=== PATIENT | female | born 1955 | race Caucasian/White ===

== ENCOUNTER 2017-10-23 18:00 | Emergency (ER) | payer SELFPAY ==
[2017-10-23 18:01] VITALS: BP 132/83; PULSE 73; RESP 20; TEMP 36.8; O2SAT 97; BMI 40.2
[2017-10-23] MEDS: Ipratropium/Albuterol Sulfate 3 ML AMPUL.NEB INHALATION (19:06)
[2017-10-23 19:09] VITALS: PULSE 72; RESP 18
--- NOTE | 2017-10-23 19:34 | RAD_ITS ---
STUDY: X-RAY CHEST REASON FOR EXAM: Female, 62 years old. Cough, fever TECHNIQUE: Frontal and lateral views of the chest. COMPARISON: None. FINDINGS: The lungs are clear and expanded. There is no demonstrated pleural abnormality. Normal size heart. Normal mediastinum and evette. Normal visualized pulmonary arteries. Normal visualized aortic arch and descending thoracic aorta. There are diffuse degenerative changes of the visualized thoracic spine. Normal visualized ribs, clavicles, and shoulders. There is no demonstrated abnormality of the visualized soft tissue structures of the upper abdomen. RAD/Chest PA and Lateral IMPRESSION: No acute cardiopulmonary disease. Electronically Signed: Vishal Marinelli DO at 20:04 EST , Service support ,
[2017-10-23 20:21] VITALS: BP 165/75; PULSE 65; RESP 16; O2SAT 98
--- NOTE | 2017-10-23 20:39 | ED.VISSUMM ---
- ER Visit Summary Date of Service: 10/23/17 Chief Complaint: [Cough] History of Present Illness: The patient is a 62 F presents to the emergency department with a cough that started 5 days ago. Patient states the cough is mostly dry. Patient feels congested. Patient has decreased energy. Patient denies any sick contacts. Patient did have a little bit of a sore throat and this complaint of a headache. [] Physical Examination: [HEENT-PERRLA, EOMI. Cranial nerves II through XII grossly intact. TMs clear. Mucous membranes moist. No adenopathy. Cardiovascular-regular rate and rhythm without murmur or ectopy Lungs-good aeration bilaterally. Patient has expiratory wheezes bilaterally. No accessory muscle use or retractions. Abdomen-normoactive bowel sounds, soft, nontender, no rebound or rigidity, no peritoneal signs. Extremities-intact ?4, normal range of motion, normal pulses, atraumatic] Test Results: [Chest x-ray showed nothing acute] Emergency Department Course and Treatment: Was given a DuoNeb aerosol and was treated with prednisone. [] Treatment Plan: [Will be started on Tessalon Perles, prednisone, and dispensed an albuterol inhaler] Disposition: [Discharged home in stable condition] Impression: [Viral URI with reactive airway disease] This note was generated with [employer] dictation software. It may contain incorrect words, spelling, and punctuation that were not noted in review of the chart prior to signing ED Disposition - Plan for ED Patient: Chief Complaint: General Illness Referrals: Ashleigh Lynch [Primary Care Provider] -
--- NOTE | 2017-10-23 20:41 | ED.DEP ---
ED Disposition - Plan for ED Patient: Chief Complaint: General Illness Instructions: ED Bronchitis Asthmatic Prescriptions: Benzonatate [Tessalon Perle] 200 mg PO TID PRN PRN #20 cap PRN Reason: Cough Prednisone [Deltasone] 20 mg PO BID #6 tab Referrals: Ashleigh Lynch [Primary Care Provider] - 3-5 Days
[2017-10-23 21:00] VITALS: BP 177/78; PULSE 81; RESP 18; O2SAT 97
== END 2017-10-23 21:02 | disposition home or self-care (01) ==
LOC: ED 18:49
PROVIDERS: Emergency Provider Emergency Medicine
DX: J06.9 Acute upper respiratory infection, unspecified (principal); J45.909 Unspecified asthma, uncomplicated; I10 Essential (primary) hypertension; M79.7 Fibromyalgia; Z79.899 Other long term (current) drug therapy
CPT/HCPCS: 71046; 94640; 99283

== ENCOUNTER → 2019-06-11 15:28 | Outpatient (CLI) | payer MEDICAID, SELFPAY ==
--- NOTE | 2019-06-11 15:31 | RAD_ITS ---
STUDY: X-RAY - CERVICAL SPINE REASON FOR EXAM: Female, 64 years old. Chronic pain. TECHNIQUE: 8 view(s) of the cervical spine were obtained. COMPARISON: None FINDINGS: There are degenerative changes of the anterior atlantoaxial articulation. Normal odontoid process. There is straightening of the normal cervical lordosis. There is multi-level endplate spondylosis. This is most marked at C4-5 through C6-7 and Normal visualized intervertebral neuroforamina. Number no spine fracture there is maintenance of normal alignment does not alter with flexion or extension. There is limited flexion and extension below the C6 vertebra. The soft tissue structures are unremarkable. RAD/Cerv Spine Obl/Flex/Ext Comp IMPRESSION: Degenerative changes of the cervical spine. Electronically Signed: Mike Joe DO at 23:00 EDT Tel [phone], Service support ,
== END ==
DX: M47.812 Spondylosis without myelopathy or radiculopathy, cervical region (principal)
CPT/HCPCS: 72052

== ENCOUNTER → 2020-11-11 12:56 | Outpatient (CLI) | payer MEDICAID, SELFPAY ==
[2020-11-11 14:13] LABS: Absolute Lymphocyte Count 1.57 X10^3/uL (0.83-4.51); Absolute Neutrophil Count 3.4 X10^3/uL (2.0-7.7); Basophil# 0.02 X10^3/uL; Basophil% 0.4 % (0-1); Eosinophil# 0.15 X10^3/uL; Eosinophils% 2.7 % (0-5); Hemoglobin 16.2 g/dL (12.0-15.0); Lymphocyte # 1.57 X10^3/ul (4.0); Lymphocyte % 28.3 % (19-41); Mean Corp Hgb Conc 34.5 g/dL (32-36); Mean Corpuscular Hgb 29.4 pg (27.0-32.0); Mean Corpuscular Volume 85.3 fL (81-99); Mean Platelet Vol. 11.5 fl (6.2-12.0); Monocyte# 0.38 X10^3/uL; Monocyte% 6.8 % (0-10); NRBC Flagged by Analyzer 0 % (0-5); Neutrophil # 3.42 X10^3/uL (2.7-7.7); Neutrophil % 61.6 % (47-70); Platelet Count 161 K/mm3 (150-450); RBC Distribution Width CV 13.2 % (11.6-14.6); RBC Distribution Width SD 40.7 fl (35.1-43.9); Red Blood Count 5.51 M/mm3 (4.2-5.4); White Blood Count 5.6 K/mm3 (4.4-11.0)
[2020-11-11 14:31] LABS: Hemoglobin A1c 8.7 % (3.8-5.6)
[2020-11-11 15:09] LABS: AST(SGOT) 51 U/L (15-37); Alanine Aminotransfer ALT/SGPT 79 U/L (13-56); Albumin, Serum 3.7 g/dL (3.2-5.0); Alkaline Phosphatase 107 U/L (45-117); Anion Gap 8 (5-15); BUN 11 mg/dL (7-18); BUN/Creat Ratio 16.5 RATIO (10-20); Calcium,Total 9.4 mg/dL (8.5-10.1); Chloride 101 mmol/L (98-107); Cholesterol 208 mg/dL (200); Creatinine, Serum 0.67 mg/dL (0.55-1.02); EST Glomerular Filtration Rate 95 mL/min (>60); Est Glom Filt Rate - Afr Amer 115 mL/min (>60); Globulin 3.7 g/dL (2.2-4.2); Glucose 296 mg/dL (74-106); High Density Lipoprotein 37 mg/dL; Potassium 3.6 mmol/L (3.5-5.1); Protein, Total 7.4 g/dL (6.4-8.2); Sodium Level 135 mmol/L (136-145); T4 Free Direct 1.22 ng/dL (0.76-1.46); Thyroid Stim Hormone (TSH) 1.39 uIU/mL (0.358-3.74); Triglycerides 419 mg/dL
[2020-11-13 14:25] LABS: Thyroid Peroxidase AB 202 IU/mL (0-34)
== END ==
PROVIDERS: Referring Provider Nurse Practitioner Adult Health; Visit Provider Nurse Practitioner Adult Health
DX: E11.65 Type 2 diabetes mellitus with hyperglycemia (principal)
CPT/HCPCS: 36415; 80053; 80061; 83036; 84439; 84443; 85025; 86376

== ENCOUNTER → 2020-12-06 08:28 | Outpatient (CLI) | payer MEDICAID, SELFPAY ==
[2020-12-01 13:48] VITALS: BMI 37.4
--- NOTE | 2020-12-06 08:34 | US_ITS ---
STUDY: ABDOMINAL ULTRASOUND - RIGHT UPPER QUADRANT REASON FOR VISIT: Female, 65 years old ABNORMAL RESULTS OF LIVER FUNCTION TECHNIQUE: Ultrasound evaluation of the right upper quadrant was performed with real-time and static watt-scale imaging. TECHNICAL QUALITY: Comparison is made with prior study dated 02/29/2012. COMPARISON: None. FINDINGS: Liver: The liver is enlarged and measures 21.3 cm. There is increased echogenicity consistent with fatty infiltration. The bile ducts are within normal limits. There is hepatic color flow. The direction of portal flow is hepatopetal. There is no demonstrated mass lesion. Gallbladder: Normal distended gallbladder. The gallbladder wall measures 2 mm. There is a negative sonographic Aguilera''s sign. There is no pericholecystic fluid. There are multiple echogenic structures within the gallbladder, consistent with multiple small gallstones. Common Bile Duct (C.B.D.): The common bile duct measures mm. Pancreas: Normal size of the head, body and tail of the pancreas. There is normal echogenicity of the pancreas. There is no demonstrated pancreatic mass or cyst. Right Kidney: Normal size of the right kidney. The right kidney measures 12.2 cm x 6.3 cm x 5.4 cm. Normal renal cortex. The right cortex measures 2.0 cm. There is no demonstrated renal mass or cyst. There is no right hydronephrosis. US/Abdomen Limited IMPRESSION: Hepatomegaly and diffuse fatty infiltration of the liver. Multiple small gallstones. Electronically Signed: Juan Jose Wing MD at 14:01 EDT , Service support ,
[2020-12-06 11:13] LABS: Hepatitis B Surface Antigen Non-Reactive (Nonreactive); Hepatitis C Antibody Non-Reactive (Nonreactive)
== END ==
DX: K76.0 Fatty (change of) liver, not elsewhere classified (principal); K80.20 Calculus of gallbladder without cholecystitis without obstruction
CPT/HCPCS: 36415; 76705; 86803; 87340

== ENCOUNTER → 2020-12-16 14:15 | Outpatient (CLI) | payer MEDICAID, SELFPAY ==
[2020-12-16 13:46] VITALS: BMI 37.4
[2020-12-16 15:04] LABS: AST(SGOT) 47 U/L (15-37); Alanine Aminotransfer ALT/SGPT 71 U/L (13-56); Albumin, Serum 3.8 g/dL (3.2-5.0); Alkaline Phosphatase 101 U/L (45-117); Bilirubin, Direct 0.22 mg/dL (0.00-0.30); Protein, Total 7.8 g/dL (6.4-8.2)
== END ==
PROVIDERS: Referring Provider Surgery; Visit Provider Surgery
DX: R74.8 Abnormal levels of other serum enzymes (principal)
CPT/HCPCS: 36415; 80076

== ENCOUNTER → 2021-01-03 10:25 | Outpatient (CLI) | payer MEDICAID, SELFPAY ==
[2020-12-29 14:08] VITALS: BMI 37.3
--- NOTE | 2021-01-03 10:28 | EKG12_ITS ---
Test Reason : PRE OP Blood Pressure : / mmHG Vent. Rate : 062 BPM Atrial Rate : 062 BPM P-R Int : 220 ms QRS Dur : 078 ms QT Int : 402 ms P-R-T Axes : 040 007 048 degrees QTc Int : 408 ms Sinus rhythm with 1st degree A-V block Septal infarct , age undetermined Abnormal ECG Confirmed by TAL ABRAHAM, STEPHANIE ([id number]), field map editor GOPI HAGAN ([id number]) on 01/04/2021 10:01:10 AM Referred By: [facility] Confirmed By:STEPHANIE PARADA MD
== END ==
DX: R01.1 Cardiac murmur, unspecified (principal)
CPT/HCPCS: 93005

== ENCOUNTER → 2021-01-17 14:03 | Outpatient (CLI) | payer MEDICAID, SELFPAY ==
[2020-12-29 14:08] VITALS: BMI 37.3
--- NOTE | 2021-01-17 14:05 | ECHOCS_ITS ---
Reason For Study: Murmur Procedure This was a 2D Doppler, Color Flow transthoracic echocardiogram. The study was technically difficult. Contrast injection was performed. Exam performed in department. Left Ventricle Normal LV size. Mild concentric left ventricular hypertrophy. Left ventricular systolic function is hyperdynamic. The estimated ejection fraction is 75 %. Diastolic function is indeterminate. No regional wall motion abnormalities noted. Right Ventricle Normal RV size. Normal systolic function. Atria The left atrium is mildly enlarged. Normal right atrium. No doppler evidence for ASD. Mitral Valve There is mild mitral annular calcification. The mitral valve chordae are thickened and/or calcified. Trivial mitral valve insufficiency. Tricuspid Valve Normal tricuspid valve. Trivial tricuspid valve insufficiency. Right ventricular systolic pressure estimated to be 23 mmHg. Aortic Valve Trisinus/trileaflet aortic valve. Mild diffuse aortic valve calcification. Aortic sclerosis, no stenosis. Pulmonic Valve The pulmonic valve is not well visualized. Trivial pulmonic valve insufficiency. Great Vessels Normal sized aortic root. Calcified aortic root. Pericardium/Pleural No pericardial effusion. Medication 22 gauge I.V. with prn adaptor inserted into left arm. Diluted definity 2ml given slow IV push to enhance endocardial definition. MMode/2D Measurements & Calculations LVIDd: 4.3 cm IVSd: 1.3 cm LVOT diam: 2.0 cm LVIDs: 2.4 cm LVPWd: 1.4 cm FS: 44.6 % LVOT area: 3.0 cm2 Ao root diam: 2.9 cm LAV(MOD-bp): 73.1 ml LA A4 area: 25.5 cm2 LA dimension: 4.3 cm LAV(MOD-bp) Indexed: 32.8 ml/m2 LAV(MOD-sp2): 53.5 ml LAV(MOD-sp4): 81.2 ml RA A4 area: 17.2 cm2 Time Measurements MV dec time: 0.25 sec Doppler Measurements & Calculations MV E max dharmesh: 127.3 cm/sec Lat Peak E' Dharmesh: 7.3 cm/sec Med Peak E' Dharmesh: 4.3 cm/sec MV A max hdarmesh: 115.0 cm/sec E/E' lat: 17.5 E/E' med: 29.4 MV E/A: 1.1 MV V2 max: 133.9 cm/sec MV P1/2t max dharmesh: 122.3 cm/sec Ao V2 max: 170.6 cm/sec MV max P.2 mmHg MV P1/2t: 96.9 msec Ao max P.6 mmHg MV V2 mean: 80.1 cm/sec MV dec slope: 369.8 cm/sec2 Ao V2 mean: 99.5 cm/sec MV mean P.9 mmHg Ao mean P.8 mmHg MV V2 VTI: 45.1 cm MVA(P1/2t): 2.3 cm2 Ao V2 VTI: 35.9 cm MVA(VTI): 1.8 cm2 TON(I,D): 2.3 cm2 TON(V,D): 2.0 cm2 LV V1 max: 113.2 cm/sec SV(LVOT): 82.4 ml PA V2 max: 113.6 cm/sec LV V1 max P.1 mmHg LV V1 mean P.6 mmHg LV V1 mean: 75.2 cm/sec LV V1 VTI: 27.2 cm TR max dharmesh: 224.8 cm/sec TR max P.2 mmHg ECHO/Echo Complete W/ Contrast Interpretation Summary The study was technically difficult. Contrast injection was performed. Left ventricular systolic function is hyperdynamic. The estimated ejection fraction is 75 %. Mild concentric left ventricular hypertrophy. The left atrium is mildly enlarged. There is mild mitral annular calcification. The mitral valve chordae are thickened and/or calcified. Trivial mitral valve insufficiency. Trivial tricuspid valve insufficiency. Aortic sclerosis, no stenosis. Trivial pulmonic valve insufficiency. Calcified aortic root. Right ventricular systolic pressure estimated to be 23 mmHg. Diastolic function is indeterminate. Ordering Physician: Selene Soliz Referring Physician: Selene Soliz Performed By: Brian Nunez RCS
== END ==
PROVIDERS: PCP Nurse Practitioner Adult Health; Referring Provider Nurse Practitioner Adult Health; Visit Provider Nurse Practitioner Adult Health
DX: R01.1 Cardiac murmur, unspecified (principal)
CPT/HCPCS: 93306; Q9957; A4216; C8929

== ENCOUNTER → 2021-02-22 12:00 | Outpatient (CLI) | payer MEDICAID, SELFPAY ==
[2021-02-22 11:00] VITALS: BMI 38.1
[2021-02-22 13:17] LABS: AST(SGOT) 30 U/L (15-37); Alanine Aminotransfer ALT/SGPT 50 U/L (13-56); Albumin, Serum 3.5 g/dL (3.2-5.0); Alkaline Phosphatase 83 U/L (45-117); Anion Gap 6 (5-15); BUN 16 mg/dL (7-18); BUN/Creat Ratio 23.1 RATIO (10-20); Calcium,Total 9.4 mg/dL (8.5-10.1); Chloride 103 mmol/L (98-107); Creatinine, Serum 0.69 mg/dL (0.55-1.02); EST Glomerular Filtration Rate 91 mL/min (>60); Est Glom Filt Rate - Afr Amer 110 mL/min (>60); Globulin 3.6 g/dL (2.2-4.2); Glucose 226 mg/dL (74-106); Potassium 3.8 mmol/L (3.5-5.1); Protein, Total 7.1 g/dL (6.4-8.2); Sodium Level 137 mmol/L (136-145); T4 Free Direct 1.07 ng/dL (0.76-1.46); Thyroid Stim Hormone (TSH) 2.02 uIU/mL (0.358-3.74)
[2021-02-22 13:22] LABS: Hemoglobin A1c 7.6 % (3.8-5.6)
[2021-02-23 08:43] LABS: Thyroid Peroxidase AB 182 IU/mL (0-34)
== END ==
PROVIDERS: PCP Nurse Practitioner Adult Health; Referring Provider Nurse Practitioner Adult Health; Visit Provider Nurse Practitioner Adult Health
DX: E11.65 Type 2 diabetes mellitus with hyperglycemia (principal)
CPT/HCPCS: 36415; 80053; 83036; 84439; 84443; 86376

== ENCOUNTER 2021-11-27 13:09 | Outpatient (CLI) | payer MEDICAID, SELFPAY ==
[2021-11-27 13:52] LABS: Absolute Lymphocyte Count 1.33 X10^3/uL (0.83-4.51); Absolute Neutrophil Count 4.1 X10^3/uL (2.0-7.7); Basophil# 0.02 X10^3/uL; Basophil% 0.3 % (0-1); Eosinophil# 0.13 X10^3/uL; Eosinophils% 2.2 % (0-5); Hemoglobin 15.6 g/dL (12.0-15.0); Lymphocyte # 1.33 X10^3/ul (0.83-4.51); Lymphocyte % 22.1 % (19-41); Mean Corp Hgb Conc 37.1 g/dL (32-36); Mean Corpuscular Hgb 32.2 pg (27.0-32.0); Mean Corpuscular Volume 86.6 fL (81-99); Mean Platelet Vol. 11.3 fl (6.2-12.0); Monocyte# 0.45 X10^3/uL; Monocyte% 7.5 % (0-10); NRBC Flagged by Analyzer 0 % (0-5); Neutrophil # 4.08 X10^3/uL (2.7-7.7); Neutrophil % 67.6 % (47-70); Platelet Count 158 K/mm3 (150-450); RBC Distribution Width CV 13.2 % (11.6-14.6); RBC Distribution Width SD 41.3 fl (35.1-43.9); Red Blood Count 4.85 M/mm3 (4.2-5.4)
[2021-11-27 14:17] LABS: ALB/GLOB Ratio 1.1 RATIO (0.9-2.4); AST(SGOT) 52 U/L (15-37); Alanine Aminotransfer ALT/SGPT 69 U/L (13-56); Albumin, Serum 3.9 g/dL (3.2-5.0); Alkaline Phosphatase 82 U/L (45-117); Anion Gap 4 (5-15); BUN 10 mg/dL (7-18); BUN/Creat Ratio 14.2 RATIO (10-20); CPK Total, Creatine Kinase 47 U/L (26-192); CRP < 2.90 mg/L (0.0-3.0); Calcium,Total 9.3 mg/dL (8.5-10.1); Chloride 98 mmol/L (98-107); Cholesterol 207 mg/dL (200); EST Glomerular Filtration Rate 89 mL/min (>60); Est Glom Filt Rate - Afr Amer 108 mL/min (>60); Globulin 3.6 g/dL (2.2-4.2); Glucose 225 mg/dL (74-106); High Density Lipoprotein 43 mg/dL; Potassium 3.5 mmol/L (3.5-5.1); Protein, Total 7.5 g/dL (6.4-8.2); Rheumatoid Factor < 10.0 IU/mL (<15); Sodium Level 135 mmol/L (136-145); Triglycerides 298 mg/dL; Uric Acid 7.2 mg/dL (2.6-6.0); Very Low Density Lipoprotein 60 mg/dL (5-40)
[2021-11-27 23:29] LABS: Erythrocyte Sedimentation Rate 4 mm/hr (0-30)
[2021-11-29 16:12] LABS: ANTINUCLEAR ANTIBODIES DIRECT Negative (Negative)
== END 2021-11-27 23:59 | disposition home or self-care (01) ==
PROVIDERS: Referring Provider Nurse Practitioner Adult Health; Visit Provider Nurse Practitioner Adult Health
DX: E11.65 Type 2 diabetes mellitus with hyperglycemia (principal); M25.50 Pain in unspecified joint
CPT/HCPCS: 36415; 80053; 80061; 82550; 84443; 84550; 85025; 85652; 86038; 86140; 86431

== ENCOUNTER 2021-12-02 08:18 | Outpatient (CLI) | payer MEDICAID, SELFPAY ==
--- NOTE | 2021-12-02 08:22 | US_ITS ---
STUDY: ABDOMINAL ULTRASOUND - RIGHT UPPER QUADRANT REASON FOR VISIT: Female, 66 years old back pain, history of gallstones. TECHNIQUE: Ultrasound evaluation of the right upper quadrant was performed with real-time and static watt-scale imaging. TECHNICAL QUALITY: Adequate. COMPARISON: 12/06/2020 FINDINGS: Liver: The liver measures 21 cm. There is increased echogenicity consistent with fatty infiltration. The bile ducts are within normal limits. There is hepatic color flow. The direction of portal flow is hepatopetal. There is no demonstrated mass lesion. Gallbladder: Normal distended gallbladder. The gallbladder wall measures 2.1 mm. There is a negative sonographic Aguilera''s sign. There is no pericholecystic fluid. There are multiple small echogenic structures within the gallbladder, consistent with multiple gallstones. Common Bile Duct (C.B.D.): The common bile duct measures 2.4 mm. Pancreas: The pancreas as seen on this examination is echogenic structure. There is no demonstrated pancreatic mass or cyst. Right Kidney: Normal size of the right kidney. The right kidney measures 12.7 x 6.6 x 4.9 cm. Normal renal cortex. The right cortex measures 1.8 cm. There is no demonstrated renal mass or cyst. There is no right hydronephrosis. US/Abdomen Limited IMPRESSION: 1. Hepatomegaly. 2. Echogenic liver consistent with fatty infiltration. 3. Multiple small gallstones. Electronically Signed: Carlos Lala MD at 10:47 EDT ,
== END 2021-12-02 23:59 | disposition home or self-care (01) ==
LOC: US 08:19
PROVIDERS: Visit Provider Nurse Practitioner Adult Health
DX: K80.20 Calculus of gallbladder without cholecystitis without obstruction (principal)
CPT/HCPCS: 76705

== ENCOUNTER → 2022-01-30 | Outpatient (CLI) | payer MEDICAID, SELFPAY ==
[2022-01-30 14:40] LABS: Absolute Lymphocyte Count 1.96 X10^3/uL (0.83-4.51); Absolute Neutrophil Count 5.4 X10^3/uL (2.0-7.7); Basophil# 0.03 X10^3/uL; Basophil% 0.4 % (0-1); Eosinophil# 0.19 X10^3/uL; Eosinophils% 2.3 % (0-5); Hemoglobin 15.2 g/dL (12.0-15.0); Lymphocyte # 1.96 X10^3/ul (0.83-4.51); Lymphocyte % 24.2 % (19-41); Mean Corp Hgb Conc 36.2 g/dL (32-36); Mean Corpuscular Volume 85.5 fL (81-99); Mean Platelet Vol. 10.8 fl (6.2-12.0); Monocyte# 0.48 X10^3/uL; Monocyte% 5.9 % (0-10); NRBC Flagged by Analyzer 0 % (0-5); Neutrophil # 5.42 X10^3/uL (2.7-7.7); Neutrophil % 66.8 % (47-70); Platelet Count 152 K/mm3 (150-450); RBC Distribution Width SD 39.8 fl (35.1-43.9); Red Blood Count 4.91 M/mm3 (4.2-5.4); White Blood Count 8.1 K/mm3 (4.4-11.0)
[2022-01-30 14:50] LABS: Prothrombin Time (Protime)PT. 12.8 SECONDS (11.7-14.9)
[2022-01-30 15:05] LABS: AST(SGOT) 34 U/L (15-37); Alanine Aminotransfer ALT/SGPT 46 U/L (13-56); Albumin, Serum 3.8 g/dL (3.2-5.0); Alkaline Phosphatase 85 U/L (45-117); Anion Gap 10 (5-15); BUN 7 mg/dL (7-18); BUN/Creat Ratio 9.9 RATIO (10-20); Calcium,Total 9.5 mg/dL (8.5-10.1); Chloride 100 mmol/L (98-107); Creatinine, Serum 0.71 mg/dL (0.55-1.02); EST Glomerular Filtration Rate 88 mL/min (>60); Est Glom Filt Rate - Afr Amer 106 mL/min (>60); Ferritin 418 ng/mL (8-252); Globulin 3.8 g/dL (2.2-4.2); Glucose 185 mg/dL (74-106); LDH 240 U/L (84-246); Potassium 3.4 mmol/L (3.5-5.1); Protein, Total 7.6 g/dL (6.4-8.2); Sodium Level 137 mmol/L (136-145)
[2022-01-30 15:30] LABS: HIV - WCH Non-Reactive (Nonreactive)
[2022-02-01 15:09] LABS: Anti-Centromere B Ab <0.2 AI (0.0-0.9); Anti-Chromatin <0.2 AI (0.0-0.9); Anti-Jo <0.2 AI (0.0-0.9); Anti-Scleroderma-70 AB <0.2 AI (0.0-0.9); RNP Ab <0.2 AI (0.0-0.9); SJOGREN'S Anti-SS-A test < 0.2 AI (0.0-0.9); SJOGREN'S Anti-SS-B test < 0.2 AI (0.0-0.9); Smith Ab <0.2 AI (0.0-0.9)
[2022-02-01 17:22] LABS: Anti-Mitochondrial AB <20.0 Units (0.0-20.0); Anti-dsDNA Ab 1 IU/mL (0-9)
[2022-02-02 16:09] LABS: Angiotensin Convert Enzyme 55 U/L (14-82); Ceruloplasmin 21.4 mg/dL (19.0-39.0); Cytoplasmic Ab (C-ANCA) <1:20 titer (Neg:<1:20); HEPATITIS B SURFACE AG Negative (Negative); Hep C Antibodies <0.1 s/co ratio (0.0-0.9); Hepatitis A IgM Antibody Positive (Negative); Hepatitis B Core AB IgM Negative (Negative)
[2022-02-02 16:39] LABS: AFP, Tumor Marker 3.1 ng/mL (0.0-9.2); Anti-Smooth Muscle ABS 14 Units (0-19); Copper, Serum or Plasma 93 ug/dL (80-158); Haptoglobin 44 mg/dL (37-355); Perinuclear Ab (P-ANCA) <1:20 titer (Neg:<1:20)
== END | disposition home or self-care (01) ==
LOC: LAB 13:53
PROVIDERS: Referring Provider Nurse Practitioner Adult Health; Visit Provider Nurse Practitioner Adult Health
DX: K76.0 Fatty (change of) liver, not elsewhere classified (principal)
CPT/HCPCS: 36415; 80053; 80074; 82105; 82140; 82164; 82390; 82525; 82728; 83010; 83516; 83615; 85025; 85610; 86225; 86235; 86256; 86703

== ENCOUNTER 2023-02-07 11:30 | Outpatient (RCR) | payer MEDICARE, MEDICAID, SELFPAY ==
--- NOTE | 2023-01-04 14:32 | HP.PTEVAL_ITS ---
Patient's Visit Information PETER DAHL is a 67 year old F referred to Physical Therapy by Dr. Eddie Salmeron DC with a diagnosis of LUMBAR STRAIN ,CERVICAL STRAIN. Date of Evaluation: 01/04/23 Physical Therapist: Emery Naidu, PT, Cert MDT, OCS - Visit Plan Frequency: 2x /Week Duration: 4 Weeks Plan: PT INTERVENTIONS AQUATIC THERAPY FOR LUMBAR/CERVICAL ROM ,POSTURAL EX'S ,BUE/LE STRENGTHENING , DLS ,AND LE LEXABILITY - Subjective This 67 y/o female presents to physical therapy for back and neck pain. Patient has had cervical and lumbar pain many years. Patient has been seeing chiropractor which has not helped. Patient has chiropractor in past as well showed spurs from x-rays several years ago. Patient neck cervical and occiput to shoulders. Symptoms described intermittent sharp pain and spasms .Aggravating factors pressure with arms ,lifting ,flexion and extending and occasional turning. Denies NORRIS/tinnitus occasional NORRIS after spasm. Denies Nausea. Patient pain affects sleeping with restless legs. Location LS pain and symptoms with radicular symptoms to hamstrings and hips. Aggravating factors lifting/bending ,standing and walking and occasional sitting . Alleviating factors rest. Coughing/sneezing + . Bowel/bladder -. No abnormal night pain. PT many years ago. Patient pain affects QOL and function. SOCIAL: . VOCATION: retired - Pain Bilateral Back Pain Intensity (Out of 10): 5 Pain Intensity Range: 10 Bilateral Neck Pain Intensity (Out of 10): 5 Pain Intensity Range: 10 - Objective POSTURE: mild forward posture ,left leg slightly shorter. GAIT: reciprocal pattern mild decrease stance time LLE. PALPTION: tender UT/levtor/SI/LS. C ERVICAL ROM: flexion min loss ,extension mod loss ,rotation/lateral flexion mod loss. BUE: WFL. MMT: BUE grossly 4/5 ,except shoulders 4-/5. LUMBAR ROM: flexion mod loss ,extension min loss ,side glides min loss. FLEXABLITY: hamstrings min tight ,piriformis mod tight. MMT:( peak force) left 15,7 ,hamstrings 19.9 ,hip flexion 15.8,hip abduction 14.8 - Special Tests C/S Radiculapathy - Left Upper limb tension test: Negative C/S Radiculapathy - Right Upper limb tension test: Negative C/S Radiculapathy - Left Spurlings: Negative C/S Radiculapathy - Right Sp[place]: Negative C/S Radiculapathy - Left Cervical distraction: Negative C/S Radiculapathy - Right Cervical distraction: Negative C/S Radiculapathy - Left Relief test: Negative Sharp Tucker: Negative Vertebral Artery Test: Negative Alar Ligament Test: Negative Cervical Sitting: Protrusion - Mechanical Response: No effect Cervical Sitting: Protrusion - Symptoms During Testing: Increases Cervical Sitting: Protrusion - Symptoms After Testing: No worse Cervical Sitting: Retraction - Mechanical Response: No effect Cervical Sitting: Retraction - Symptoms During Testing: Increases Cervical Sitting: Retraction - Symptoms After Testing: No worse Cervical Sitting: Retraction-Extension - Mechanical Response: No effect Cerv Sitting: Retraction-Extension - Symptoms During Testing: Increases Cerv Sitting: Retraction-Extension - Symptoms After Testing: No worse Cervical Sitting: Sidebend Right - Mechanical Response: No effect Cervical Sitting: Sidebend Right - Symptoms During Testing: No effect Cervical Sitting: Sidebend Right - Symptoms After Testing: No effect Cervical Sitting: Sidebend Left - Mechanical Response: No effect Cervical Sitting: Sidebend Left - Symptoms During Testing: No effect Cervical Sitting: Sidebend Left - Symptoms After Testing: No effect Cervical Sitting: Rotation Right - Mechanical Response: No effect Cervical Sitting: Rotation Right - Symptoms During Testing: No effect Cervical Sitting: Rotation Right - Symptoms After Testing: No effect Cervical Sitting: Rotation Left - Mechanical Response: No effect Cervical Sitting: Rotation Left - Symptoms During Testing: No effect Cervical Sitting: Rotation Left - Symptoms After Testing: No effect Cervical Sitting: Flexion - Mechanical Response: No effect Cervical Sitting: Flexion - Symptoms During Testing: Increases Cervical Sitting: Flexion - Symptoms After Testing: Worse L/S Slump test left side: Negative L/S Slump test right side: Negative L/S Left Straight Leg Raise: Negative L/S Right Straight Leg Raise: Negative Lumbar Standing: Flexion - Mechanical Response: No effect Lumbar Standing: Flexion - Symptoms During Testing: Increases Lumbar Standing: Flexion - Symptoms After Testing: No worse Lumbar Standing: Extension - Mechanical Response: No effect Lumbar Standing: Extension - Symptoms During Testing: Increases Lumbar Standing: Extension - Symptoms After Testing: No worse Lumbar Standing: Right Side Glides - Mechanical Response: No effect Lumbar Standing: Right Side [place] - Symptoms During Testing: No effect Lumbar Standing: Right Side [place] - Symptoms After Testing: No effect Lumbar Standing: Left Side [place] - Mechanical Response: No effect Lumbar Standing: Left Side [place] - Symptoms During Testing: No effect Lumbar Standing: Left Side [place] - Symptoms After Testing: No effect - Balance/Special Test Scores Oswestry Low Back Score: 22 - Goals Goal 1:: I with Aquatic therapy program Goal Time Frame: 4-6 Weeks Goal 2:: Patient to demonstrate 50% improvement with increase function and less pain Goal Time Frame: 4-6 Weeks Goal 3:: Patient to improve improved cervical and lumbar ROM for function of activity for driving and housework Goal Time Frame: 4-6 Weeks Goal 4:: Patient improve strength left leg by 5-10 MMT peak force to improve function. Goal Time Frame: 4-6 Weeks Goal 5:: Patient to improve back oswestry score by 5 points to improve QOL and function. Goal Time Frame: 4-6 Weeks - Rehabilitation Potential Physical Therapy Diagnosis: This patient has cervical pain and lumbar pain with symptoms increase with motion testing and positioning weakness left leg increase with walking/standing and ADL thus benefit from skilled PT Rehabilitation Potential: Fair - Anticipated Interventions Patient/Client Instruction: Educate patient on: Condition, Plan of Care For the Purpose of:: To decrease pain, To increase ROM, To improve muscle performance and motor function, To improve ability to perform ADL's, To increase tolerance to activity/condition/position, To improve ability of physical actions for home/community/work/leisure, To improve health of tissue, To decrease soft tissue restriction, To increase flexibility/ROM, To improve balance, To improve tolerance to ADL's Therapeutic Exercise to Include: Strength training, Endurance training, Body mechanics, Postural training, Flexibilty training, In an aquatic setting, Active ROM, Dynamic Lumbar Stabilization For the Purpose of:: To decrease pain, To improve muscle performance and motor function, To improve ability to perform ADL's, To increase tolerance to activity/condition/position, To improve performance and independence with ADL's, To improve ability of physical actions for home/community/work/leisure, To improve health of tissue, To decrease soft tissue restriction, To increase flexibility/ROM, To improve endurance, To reduce risk of recurrence, To improve tolerance to ADL's Thank you for the opportunity to evaluate your patient. For Medicare and Medicare HMO plans, please review the plan of care and approve it. It will need to be FAXED BACK to us at [phone] for Medicare purposes. For Medicare only, by signing this I certify the plan of care. Please let me know if there are questions or concerns regarding this plan of care. Physician Signature: Date:
--- NOTE | 2023-02-07 14:33 | HP.PTREVAL ---
Dr. Eddie Salmeron, [place], It has been my pleasure to treat PATRICIA DAHL over the last 8 visits for LUMBAR STRAIN ,CERVICAL STRAIN. Please see the progress note below for an update on the physical therapy plan of care! Subjective: Pt. states that she feels like the pool has helped her hip and she has less pain overall. She states that she can still be walking and like her hip is going to pop. Pt. states that she still gets the spasms going up her neck. She reports that she would be interested in transitioning to land therapy and see how she does with this. Objective/Function: Patricia has come to 8 sessions of physical therapy with aquatic therapy to focus on general strengthening. Reviewed pt. goals for therapy and she has met or is progressing towards meeting her goals for therapy. Discussed with pt. about possibly transitioning to land therapy which she was in agreement with. Will continue to work on improving neck and back strengthening to meet her goals for therapy. Plan Plan: Possible transition to land therapy to focus on improving neck and back strength. Balance/Gait/Functional tests - Balance/Special Test Scores Oswestry Low Back Score: 17 Goals Goal 1:: I with Aquatic therapy program Goal Time Frame: 4-6 Weeks Goal Progress: Goal Met Goal 2:: Patient to demonstrate 50% improvement with increase function and less pain Goal Time Frame: 4-6 Weeks Goal Progress: Progressing Goal 3:: Patient to improve improved cervical and lumbar ROM for function of activity for driving and housework Goal Time Frame: 4-6 Weeks Goal Progress: Goal Met Goal 4:: Patient improve strength left leg by 5-10 MMT peak force to improve function. Goal Time Frame: 4-6 Weeks Goal Progress: Progressing Goal 5:: Patient to improve back oswestry score by 5 points to improve QOL and function. Goal Time Frame: 4-6 Weeks Goal Progress: Progressing Anticipated Interventions Patient/Client Instruction: Educate patient on: Condition, Plan of Care For the Purpose of:: To decrease pain, To increase ROM, To improve muscle performance and motor function, To improve ability to perform ADL's, To increase tolerance to activity/condition/position, To improve ability of physical actions for home/community/work/leisure, To improve health of tissue, To decrease soft tissue restriction, To increase flexibility/ROM, To improve balance, To improve tolerance to ADL's Therapeutic Exercise to Include: Strength training, Endurance training, Body mechanics, Postural training, Flexibilty training, In an aquatic setting, Active ROM, Dynamic Lumbar Stabilization For the Purpose of:: To decrease pain, To improve muscle performance and motor function, To improve ability to perform ADL's, To increase tolerance to activity/condition/position, To improve performance and independence with ADL's, To improve ability of physical actions for home/community/work/leisure, To improve health of tissue, To decrease soft tissue restriction, To increase flexibility/ROM, To improve endurance, To reduce risk of recurrence, To improve tolerance to ADL's Please do not hesitate to contact me at [phone] by phone or if you have questions or concerns regarding this new plan of care! Sincerely, Rd Sanchez
--- NOTE | 2023-05-14 10:46 | HP.PT.NRP ---
Patient Information Patient Information: PETER DAHL was seen in my office for initial evaluation on 01/04/23. The following Plan of Care was established for this patient: POC Established Initial Frequency: 2x /Week Initial Duration: 4 Weeks Anticipated Interventions Patient/Client Instruction: Educate patient on: Condition and Plan of Care For the Purpose of:: To decrease pain, To increase ROM, To improve muscle performance and motor function, To improve ability to perform ADL's, To increase tolerance to activity/condition/position, To improve ability of physical actions for home/community/work/leisure, To improve health of tissue, To decrease soft tissue restriction, To increase flexibility/ROM, To improve balance and To improve tolerance to ADL's Therapeutic Exercise to Include: Strength training, Endurance training, Body mechanics, Postural training, Flexibilty training, In an aquatic setting, Active ROM and Dynamic Lumbar Stabilization For the Purpose of:: To decrease pain, To improve muscle performance and motor function, To improve ability to perform ADL's, To increase tolerance to activity/condition/position, To improve performance and independence with ADL's, To improve ability of physical actions for home/community/work/leisure, To improve health of tissue, To decrease soft tissue restriction, To increase flexibility/ROM, To improve endurance, To reduce risk of recurrence and To improve tolerance to ADL's Last Seen Last Seen: This patient was last seen in our office . Pertinent comments regarding their Physical therapy will appear below: Patient was seen for PT in Aquatics for neck and back pain thus d/c At this point I will be discontinuing this patient from physical therapy. I would be happy to see this patient again in the future if found appropriate by the physician. Thank you! Emery Naidu, PT, Cert MDT, OCS Balance/Gait/Functional tests Balance/Special Test Scores Oswestry Low Back Score: 17
== END 2023-02-07 19:00 | disposition home or self-care (01) ==
LOC: PT 11:30
PROVIDERS: Referring Provider Chiropractor; Visit Provider Chiropractor
DX: S39.012D Strain of muscle, fascia and tendon of lower back, subsequent encounter; S16.1XXD Strain of muscle, fascia and tendon at neck level, subsequent encounter
CPT/HCPCS: 97110; 97113; 97162; 97164

== ENCOUNTER → 2023-07-19 | Outpatient (CLI) | payer MEDICARE, MEDICAID, SELFPAY ==
--- NOTE | 2023-07-19 13:50 | RAD_ITS ---
STUDY: X-RAY - LUMBOSACRAL SPINE REASON FOR EXAM: Female, 68 years old. ACUTE LEFT SIDED LOW BACK PAIN WITHOUT SCIATICA TECHNIQUE: 7 view(s) of the lumbosacral spine were obtained. COMPARISON: None FINDINGS: Normal lumbar lordosis. There is no substantial scoliosis. There is normal alignment of the vertebrae. Normal vertebral bodies and endplates. Normal disc space heights. Normal bilateral sacral ala, sacroiliac joints, and visualized sacrum. Normal visualized soft tissue structures. Bilateral soft tissue densities project over the kidneys. Possible calcified gallstones. Possible 1 cm calcific nephroliths on the right. RAD/L/S Spine w Bend Min 6 Vw IMPRESSION: Gallstones. Possible nephrolith on the right. Bilateral soft tissue densities project over the kidneys. Follow-up CT would be helpful. Otherwise unremarkable lumbar spine. Electronically Signed: Devon Coley MD at 16:53 EDT ,
== END | disposition home or self-care (01) ==
LOC: RAD 13:49
PROVIDERS: Referring Provider Family Medicine; Visit Provider Family Medicine
DX: M54.50 Low back pain, unspecified (principal)
CPT/HCPCS: 72114

== ENCOUNTER → 2023-08-13 | Outpatient (CLI) | payer MEDICARE, MEDICAID, SELFPAY ==
--- NOTE | 2023-08-13 14:56 | CT_ITS ---
STUDY: CT ABDOMEN AND PELVIS WITH CONTRAST REASON FOR EXAM: Female, 68 years old. LEFT SIDED ABDOMINAL PAIN/INTRAABDOMINAL MASS RADIATION DOSAGE (If Supplied By Facility): CTDIvol = ( 16.21 ) mGy, DLP = ( 1137.7 ) mGycm TECHNIQUE: Transaxial images were obtained from the dome of the diaphragm to the symphysis pubis with oral contrast. Oral and amp; IV Readi-CAT and amp; 100mL Isovue-370 was administered. Sagittal and coronal images were reconstructed. Individualized dose optimization techniques were used for this CT. COMPARISON: None. FINDINGS: The visualized lung bases are unremarkable. Coronary artery calcification. There is decreased attenuation of the liver consistent with steatosis. Mild hepatomegaly. Small gallstones seen along the dependent portion of the gallbladder lumen. There are multiple benign calcified granulomata of the spleen. Mild splenomegaly. Normal pancreas. There is a small, circumscribed, smooth, low attenuation left adrenal mass, consistent with an adrenal adenoma. This measures 1.25 cm. Normal right adrenal gland. Normal right kidney. Normal left kidney. There is a small hiatal hernia. Normal small intestine. Normal colon. The appendix is visualized and appears normal. There is scattered atherosclerotic calcification of the abdominal aorta, without a demonstrated aneurysm. Normal inferior vena cava. Normal retroperitoneum. Mild degree of thickening of the urinary bladder wall. There is absence of the uterus consistent with a prior hysterectomy. Small bilateral inguinal hernias containing fat. There are mild degenerative changes of the visualized lumbar spine. CT/Abdomen/Pelvis WITH Contrast IMPRESSION: Small gallstones along the dependent portion of the gallbladder lumen. Fatty infiltration of the liver and mild hepatomegaly. Mild to moderate splenomegaly. Small left adrenal adenoma. Electronically Signed: Juan Jose Wing MD at 14:36 EST ,
[2023-08-13 17:43] LABS: CREATININE FINGERSTICK < 1.0 mg/dL (0.55-1.02); EGFR FINGERSTICK > 60.0000 mL/min (>60)
== END | disposition home or self-care (01) ==
LOC: CT 14:53
PROVIDERS: PCP Family Medicine; Referring Provider Family Medicine; Visit Provider Family Medicine
DX: R10.9 Unspecified abdominal pain (principal); R19.00 Intra-abdominal and pelvic swelling, mass and lump, unspecified site
CPT/HCPCS: 74177; Q9967; A4216

== ENCOUNTER → 2023-08-28 | Outpatient (CLI) | payer MEDICARE, MEDICAID, SELFPAY ==
[2023-09-04 22:06] LABS: Aldosterone, Serum 5.4 ng/dL (0.0-30.0); Renin, Plasma < 0.167 ng/mL/hr (0.167-5.380)
== END | disposition home or self-care (01) ==
LOC: LAB 14:36
PROVIDERS: PCP Family Medicine; Referring Provider Family Medicine; Visit Provider Family Medicine
DX: D35.02 Benign neoplasm of left adrenal gland (principal)
CPT/HCPCS: 36415; 82088; 84244

== ENCOUNTER → 2023-11-12 | Outpatient (CLI) | payer MEDICARE, MEDICAID, SELFPAY ==
--- NOTE | 2023-11-12 09:15 | US_ITS ---
STUDY: ABDOMINAL ULTRASOUND - RIGHT UPPER QUADRANT; ELASTOGRAPHY REASON FOR VISIT: Female, 68 years old. Fatty infiltration of the liver. TECHNIQUE: Ultrasound evaluation of the right upper quadrant was performed with real-time and static watt-scale imaging. Point quantification shear wave elastography was performed ([employer]). TECHNICAL QUALITY: Adequate. COMPARISON: Comparison is made with prior study dated December 02, 2021. FINDINGS: Liver: The liver is enlarged and measures 21.8 cm. There is increased echogenicity consistent with fatty infiltration. The bile ducts are within normal limits. There is hepatic color flow. The direction of portal flow is hepatopetal. There is no demonstrated mass lesion. Median liver stiffness measured 7.8 kPa. Gallbladder: Normal distended gallbladder. The gallbladder wall measures 3 mm. There is a negative sonographic Aguilera''s sign. There is no pericholecystic fluid. There are multiple echogenic structures within the gallbladder, consistent with multiple gallstones. Common Bile Duct (C.B.D.): The common bile duct measures 5 mm. Pancreas: There is normal echogenicity of the visualized pancreas. There is no demonstrated pancreatic mass or cyst. Right Kidney: Normal size of the right kidney. The right kidney measures 11.8 cm x 5 cm x 5.7 cm. Normal renal cortex. The right cortex measures 1.9 cm. There is no demonstrated renal mass or cyst. There is no right hydronephrosis. US/ABD Limited w/ Elastography IMPRESSION: 1. Liver stiffness measures 7.8 kPa compatible with F2-F3 (Mild to moderate liver fibrosis) Metavir score. 2. Hepatomegaly and fatty infiltration of the liver. 3. Multiple gallstones. Electronically Signed: Juan Jose Wing MD at 14:30 EST ,
== END | disposition home or self-care (01) ==
LOC: US 09:11
PROVIDERS: PCP Family Medicine; Referring Provider Internal Medicine Gastroenterology; Visit Provider Internal Medicine Gastroenterology
DX: K76.0 Fatty (change of) liver, not elsewhere classified (principal)
CPT/HCPCS: 76705; 76981

== ENCOUNTER 2023-12-25 12:48 | Outpatient (CLI) | payer MEDICARE, MEDICAID, SELFPAY ==
[2023-12-25 13:29] LABS: Absolute Lymphocyte Count 1.49 X10^3/uL (0.83-4.51); Absolute Neutrophil Count 3.5 X10^3/uL (2.0-7.7); Basophil# 0.03 X10^3/uL; Basophil% 0.5 % (0-1); Eosinophil# 0.11 X10^3/uL; Hematocrit 45.9 % (37-47); Hemoglobin 16.4 g/dL (12.0-15.0); Lymphocyte # 1.49 X10^3/ul (0.83-4.51); Lymphocyte % 26.8 % (19-41); Mean Corp Hgb Conc 35.7 g/dL (32-36); Mean Corpuscular Hgb 30.9 pg (27.0-32.0); Mean Corpuscular Volume 86.4 fL (81-99); Mean Platelet Vol. 11.1 fl (6.2-12.0); Monocyte# 0.38 X10^3/uL; Monocyte% 6.8 % (0-10); NRBC Flagged by Analyzer 0 % (0-5); Neutrophil # 3.52 X10^3/uL (2.7-7.7); Neutrophil % 63.5 % (47-70); POSITIVE COUNT YES; Platelet Count 166 K/mm3 (150-450); RBC Distribution Width CV 13.4 % (11.6-14.6); RBC Distribution Width SD 41.4 fl (35.1-43.9); RET-HE 33.8 pg (30-35); Red Blood Count 5.31 M/mm3 (4.2-5.4); Reticulocyte Count 4.18 % (0.5-1.5); White Blood Count 5.6 K/mm3 (4.4-11.0)
[2023-12-25 13:43] LABS: Prothrombin Time (Protime)PT. 12.8 SECONDS (11.7-14.9)
[2023-12-25 13:59] LABS: Erythrocyte Sedimentation Rate 1 mm/hr (0-30)
[2023-12-25 14:13] LABS: CRP < 2.90 mg/L (0.0-3.0); Ferritin 386 ng/mL (8-252); Free T3 2.8 pg/mL (2.18-3.98); Iron 141 ug/dL (50-170); Iron Binding Capacity,Total 351 ug/dL (250-450); LDH 221 U/L (84-246); Thyroid Stim Hormone (TSH) 2.21 uIU/mL (0.358-3.74); Triglycerides 329 mg/dL
[2023-12-30 16:09] LABS: ACCA 10 units (0-90); ALCA 13 units (0-60); AMCA 9 units (0-100); Alpha-1-Globulins 0.2 g/dL (0.0-0.4); Alpha-2-Globulins 0.7 g/dL (0.4-1.0); Endomysial Antibody IgA Negative (Negative); Gamma Globulin 0.8 g/dL (0.4-1.8); HEPATITIS B SURFACE AG Negative (Negative); Hep C Antibodies Non Reactive (Non Reactive); Hepatitis A IgM Antibody Positive (Negative); Hepatitis B Core AB IgM Negative (Negative); IgG, Quant 848 mg/dL (586-1602); Immunoglobulin A 287 mg/dL (87-352); Immunoglobulin G, Subclass 1 532 mg/dL (248-810); Immunoglobulin G, Subclass 2 304 mg/dL (130-555); Immunoglobulin G, Subclass 3 27 mg/dL (15-102); Immunoglobulin G, Subclass 4 10 mg/dL (2-96); Immunoglobulin M 47 mg/dL (26-217); QNTFERON TB Mitogen Value > 10.00 IU/mL (.); QNTFERON TB Nil Value 0.05 IU/mL (.); QNTFERON TB1+ Ag Value 0.06 IU/mL (.); QNTFERON TB2+ Ag Value 0.06 IU/mL (.); QNTIFERON TB Positive Criteria Negative (Negative); gASCA 26 units (0-50); t-Transglutaminase IgA <2 U/mL (0-3)
[2023-12-31 00:07] LABS: Beef <0.10 kU/L (Class 0); Chocolate <0.10 kU/L (Class 0); Codfish <0.10 kU/L (Class 0); Corn <0.10 kU/L (Class 0); Egg, Whole <0.10 kU/L (Class 0); Milk (Cow) <0.10 kU/L (Class 0); Mussels <0.10 kU/L (Class 0); Peanut <0.10 kU/L (Class 0); Pork <0.10 kU/L (Class 0); Salmon <0.10 kU/L (Class 0); Shrimp <0.10 kU/L (Class 0); Soybean <0.10 kU/L (Class 0); Tuna <0.10 kU/L (Class 0); Wheat <0.10 kU/L (Class 0)
[2023-12-31 11:09] LABS: Pancreatic Elastase, Fecal < 50 (>200)
[2023-12-31 22:06] LABS: Calprotectin, Stool 16 ug/g (0-120)
== END 2023-12-25 23:59 | disposition home or self-care (01) ==
PROVIDERS: PCP Family Medicine; Referring Provider Internal Medicine Gastroenterology; Visit Provider Internal Medicine Gastroenterology
DX: K76.0 Fatty (change of) liver, not elsewhere classified (principal); K58.9 Irritable bowel syndrome, unspecified; R19.7 Diarrhea, unspecified; R16.0 Hepatomegaly, not elsewhere classified; R20.0 Anesthesia of skin; R20.2 Paresthesia of skin; R10.13 Epigastric pain
CPT/HCPCS: 36415; 80074; 82653; 82728; 82784; 82787; 83516; 83540; 83550; 83615; 83630; 83993; 84165; 84439; 84443; 84478; 84481; 85025; 85045; 85610; 85652; 86003; 86005; 86036; 86140; 86255; 86334; 86480; 86671; 87177; 87209; 87329; 87493; 87506

== ENCOUNTER → 2024-02-05 | Outpatient (CLI) | payer MEDICARE, MEDICAID, SELFPAY ==
--- NOTE | 2024-02-05 09:43 | NM_ITS ---
NUCLEAR MEDICINE BILIARY SCAN CLINICAL: Female, 68 years old. Epigastric pain, gallstones TECHNIQUE: Following the intravenous administration of 5.6 mCi of Tc Mebrofenin, hepatobiliary images was performed. Cholecystokinin (0.02 ug/kg) was then administered intravenously over a 30 minute period. COMPARISON STUDIES : NM - None. CR - Not available for review at this time. CT - CT of abdomen and pelvis dated August 13, 2023. MR - Not available for review at this time. US - right upper quadrant ultrasound dated November 12, 2023 FINDINGS: Relatively prompt and homogeneous radiopharmaceutical concentration is noted by a normal sized liver. There are no parenchymal defects noted.. Gallbladder activity is identified at 30 minutes post radiopharmaceutical administration. Small bowel activity is identified at 30 minutes post radiopharmaceutical administration. Washout of the radiopharmaceutical by the hepatic parenchyma occurs in a normal fashion on qualitative inspection. The post Cholecystokinin gallbladder ejection fraction is calculated at 11 minutes, 21 minutes, 31 minutes minutes following Cholecystokinin administration was noted to be no intravenous demonstrated at 11 minutes, no emptying is demonstrated at 21 minutes, there is a persistent empty demonstrated at 31 minutes, all which are markedly abnormal indicating poor gallbladder function/biliary dyskinesia; (normal greater than 35%). NM/Hepatobilliary Img w/Pharm Int IMPRESSION: 1. The post Cholecystokinin gallbladder ejection fraction is calculated at 11 minutes, 21 minutes, 31 minutes minutes following Cholecystokinin administration was noted to be no intravenous demonstrated at 11 minutes, no emptying is demonstrated at 21 minutes, there is a persistent empty demonstrated at 31 minutes, all which are markedly abnormal indicating poor gallbladder function/biliary dyskinesia; (normal greater than 35%). 2. The cystic duct is patent with normal uptake into the gallbladder, however the ejection fraction is absent or markedly and abnormally low. A gallbladder ejection fraction calculated to be greater than 35% following the administration of Cholecystokinin makes the probability of functional hepatobiliary disease (gallbladder and/or sphincter of Oddi dyskinesia) and/or organic hepatobiliary disease (chronic acalculous cholecystitis and/or cystic duct syndrome) to be low. (Gurpreet Thomas et al, Journal of Nuclear Medicine 32:1695, 1991). Electronically Signed: Abhijit Sánchez MD at 14:10 EDT ,
== END | disposition home or self-care (01) ==
LOC: NM 09:40
PROVIDERS: PCP Family Medicine; Referring Provider Internal Medicine Gastroenterology; Visit Provider Internal Medicine Gastroenterology
DX: K80.20 Calculus of gallbladder without cholecystitis without obstruction (principal)
CPT/HCPCS: 78227; A9537; J2805

== ENCOUNTER → 2024-02-19 | Outpatient (CLI) | payer MEDICARE, MEDICAID, SELFPAY ==
[2024-02-19 10:09] LABS: AST(SGOT) 28 U/L (15-37); Alanine Aminotransfer ALT/SGPT 41 U/L (13-56); Albumin, Serum 3.8 g/dL (3.2-5.0); Alkaline Phosphatase 74 U/L (45-117); Bilirubin, Direct 0.24 mg/dL (0.00-0.30); Globulin 3.4 g/dL (2.2-4.2); Protein, Total 7.2 g/dL (6.4-8.2)
== END | disposition home or self-care (01) ==
LOC: PAVLAB 09:37
PROVIDERS: PCP Family Medicine; Referring Provider Surgery; Visit Provider Surgery
DX: R19.7 Diarrhea, unspecified (principal); R16.0 Hepatomegaly, not elsewhere classified; B15.9 Hepatitis A without hepatic coma
CPT/HCPCS: 36415; 80076

== ENCOUNTER 2024-03-03 10:00 | Outpatient (CLI) | payer MEDICARE, MEDICAID, SELFPAY ==
[2024-03-03 15:16] LABS: Hemoglobin A1c 8.2 % (3.8-5.6)
[2024-03-03 15:41] LABS: Anion Gap 7 (5-15); BUN 20 mg/dL (7-18); BUN/Creat Ratio 23.1 RATIO (10-20); Calcium,Total 9.5 mg/dL (8.5-10.1); Chloride 102 mmol/L (98-107); Creatinine, Serum 0.86 mg/dL (0.55-1.02); EST Glomerular Filtration Rate 70 mL/min (>60); Est Glom Filt Rate - Afr Amer 84 mL/min (>60); Glucose 347 mg/dL (74-106); Potassium 3.9 mmol/L (3.5-5.1); Sodium Level 137 mmol/L (136-145)
== END 2024-03-13 23:59 | disposition home or self-care (01) ==
PROVIDERS: Anesthesiology; PCP Family Medicine; Referring Provider Surgery; Visit Provider Surgery
DX: Z01.818 Encounter for other preprocedural examination (principal); E11.65 Type 2 diabetes mellitus with hyperglycemia; Z79.84 Long term (current) use of oral hypoglycemic drugs
CPT/HCPCS: 36415; 80048; 83036; 93005

== ENCOUNTER → 2024-10-30 | Outpatient (CLI) | payer MEDICARE, MEDICAID, SELFPAY ==
--- NOTE | 2024-10-30 13:16 | RAD_ITS ---
PROCEDURE: CHEST PA AND LATERAL REASON FOR EXAM: Cough. TECHNIQUE: Frontal and lateral views of the chest. COMPARISON: None. FINDINGS: The heart size is normal. Calcified bilateral hilar lymph nodes. Questionable 8.8 mm nodule in the left suprahilar region. A lordotic view is recommended. Degenerative changes are identified within the thoracic spine. RAD/Chest PA and Lateral IMPRESSION: Questionable 8.8 mm nodule in the left suprahilar region. A lordotic view is r ecommended for further evaluation. Reading Location: [id number]
== END | disposition home or self-care (01) ==
LOC: MTRAD 13:16
PROVIDERS: PCP Family Medicine; Referring Provider Physician Assistant Surgical; Visit Provider Physician Assistant Surgical
DX: J20.9 Acute bronchitis, unspecified (principal)
CPT/HCPCS: 71046

== ENCOUNTER → 2025-06-03 | Outpatient (CLI) | payer MEDICARE, SELFPAY ==
[2025-06-03 15:25] LABS: Creatinine, Urine (random) 254.00 mg/dL (28.00-217.00); Microalbumin,Random Urine 46.9 mg/L (<20 mg/L)
[2025-06-03 16:17] LABS: AST(SGOT) 22 U/L (<=31); Alanine Aminotransfer ALT/SGPT 21 U/L (<=34); Albumin, Serum 4.1 g/dL (3.4-4.8); Alkaline Phosphatase 63 U/L (35-104); Anion Gap 14 (5-15); BUN 13 mg/dL (4-19); BUN/Creat Ratio 18.8 RATIO (10-20); Calcium,Total 9.5 mg/dL (7.6-11.0); Carbon Dioxide 22.4 mmol/L (21.0-32.0); Chloride 103 mmol/L (98-108); Cholesterol 161 mg/dL (<=200); Globulin 2.6 g/dL (2.2-4.2); Glucose 223 mg/dL (70-99); Low Density Lipoprotein Calc. 86 mg/dL; Potassium 3.4 mmol/L (3.3-5.1); Triglycerides 178 mg/dL; Very Low Density Lipoprotein 36 mg/dL (5-40); cholesterol:hdl ratio screen 4.09
--- OUTSIDE RECORDS SUMMARY | 2025-06-03 18:36 | XMS RPT_ITS | CCD ---
Author Organization [facility] CliniSyin Care Team Providers Care Fiberglass Ski Maker Name Role Phone Esperanza PIERO-DIRECTOR OF OFFICIATINGTawana Unavailable [phone] Unavailable Primary Care Provider UnavailJosesito Salinas MD Primary Care Provider Dr. Josesito Mckeon Primary Care Provider Dr. Josesito Mckeon Referring Provider [phone] Dr. Ric Nguyễn Attending Provider Dr. Josesito Mckeon Primary Care Provider Dr. Josesito Mckeon Referring Provider [phone] Dr. Ric Nguyễn Attending Provider Ric Nguyễn Attending Unavailable FriendRic Referring Unavailable Mike, Josesito Primary Care Unavailable Henry Long Attending Unavailable Mike, Josesito Primary Care Unavailable Mike, Josesito Referring Unavailable Mike, Josesito Primary Care Unavailable Travis, Eric Attending Unavailable DeHorta, Kyle Referring Unavailable Mike, Josesito Primary Care Unavailable Mike, Josesito Referring Unavailable Robotham, Sharron Attending Unavailable Robotham, Sharron Referring Unavailable Mike, Josesito Primary Care Unavailable DeHorta, Kyle Consulting Unavailable Robotham, Sharron Attending Unavailable Mike, Josesito Primary Care Unavailable Robotham, Sharron Attending Unavailable Robotham, Sharron Referring Unavailable AROLDO, KURT Attending Unavailable AROLDO, KURT Referring Unavailable Mike, Josesito Primary Care Unavailable Henry Long Attending Unavailable Henry Long Referring Unavailable Mike, Josesito Primary Care Unavailable Ric Nguyễn Attending Unavailable FriendRic Referring Unavailable Mike, Josesito Primary Care Unavailable Allergies Allergy Classification Reported Allergen(s) Allergy Type Date of Onset Reaction(s) Facility (1 source) Seasonal allergy; Translations: [SEASONAL] allergy to substance 0 [facility] Work Phone: (8 sources) cloNIDine Drug Allergy 1 depression [facility] (10 sources) Lisinopril; Translations: [LISINOPRIL] Drug Allergy 5 Cough [facility] Work Phone: (7 sources) Lisinopril Propensity to adverse reactions 5 [facility] (1 source) cloNIDine Drug Allergy 5 [facility] Repository (1 source) Lisinopril Drug Allergy 5 [facility] Repository Medications Current Medications Medication Drug Class(es) Dates Sig (Normalized) Sig (Original) bisacodyl 5 mg delayed release oral tablet (2 sources) Stimulant Laxative Start: 10-10-2023 take 1 tablet by mouth once Bisacodyl (Dulcolax (Bisacodyl)) 5 mg tablet,delayed release (DR/EC) Active 5 MG PO ONCE 4 October 10, 2023 1:00am per colonoscopy instructions cholecalciferol 0.125 mg oral capsule (8 sources) Vitamin D Start: 02-16-2021 take 125 ug by mouth once daily Cholecalciferol (Vitamin D3) Active 125 MCG PO DAILY February 16, 2021 12:00am clobetasol propionate 0.5 mg/ml topical cream (16 sources) Corticosteroid Start: 12-01-2020 End: 04-17-2021 Clobetasol Active 1 APPLIC TOPICAL .COMPLEX April 17, 2021 10:50am 1 applic TOPICAL apply thin layer as directed bid X 2 weeks then daily X 2 weeks; apply thin layer; massage in to cover area cyclobenzaprine hydrochloride 5 mg oral tablet (1 source) Muscle Relaxant Start: 09-04-2022 End: 09-09-2022 take 1 tablet by mouth every twelve hours as needed cyclobenzaprine (FLEXERIL) 5 mg tablet Take 1 tablet by mouth twice daily as needed for up to 5 days. 10 tablet 0 09/04/2022 09/09/2022 Active Comment on above: Take 1 tablet by urszula twice daily as needed for up to 5 days. magnesium oxide 500 mg oral tablet (16 sources) Start: 02-22-2021 take 500 mg by mouth twice daily Magnesium Oxide Active 500 MG PO TWICE A DAY February 22, 2021 11:17am Start: 12-16-2020 End: 02-22-2021 take 500 mg by mouth once daily Magnesium Oxide Discontinued 500 MG PO DAILY December 16, 2020 12:00am February 22, 2021 11:17am metFORMIN hydrochloride 500 mg oral tablet (16 sources) Biguanide Start: 09-20-2023 metFORMIN (Glu cophage) 500 MG tablet 09/20/2023 Active Start: 12-01-2020 End: 12-16-2020 take 500 mg by mouth twice daily Metformin Discontinued 500 MG PO TWICE A DAY December 01, 2020 12:00am December 16, 2020 1:50pm Start: 07-13-2020 METFORMIN HCL 500 MG TABS 1/2 tablet twice daily METFORMIN HCL [id number] Debbie Mares LPN methylPREDNISolone (1 source) Corticosteroid Start: 09-04-2022 End: 09-10-2022 methylPREDNISolone (MEDROL, AIMEE,) 4 mg Dose-Pack Follow dosing instructions, take with food. 21 tablet 0 09/04/2022 09/10/2022 Active Comment on above: Follow dosing instru ctions, take with food. metoprolol tartrate 50 mg oral tablet (20 sources) beta-Adrenergic Lakeisha Start: 09-20-2023 metoprolol tartrate (Lopressor) 50 MG tablet Take by mouth 2 times daily. 09/20/2023 Active Start: 02-22-2021 End: 02-22-2021 take 100 mg by mouth twice daily Metoprolol Tartrate Discontinued 100 MG PO TWICE A DAY February 22, 2021 11:14am February 22, 2021 11:37am Start: 10-23-2017 End: 02-22-2021 take 50 mg by mouth twice daily Metoprolol Tartrate Active 50 MG PO TWICE A DAY February 22, 2021 10:36am Comment on above: Take 50 mg by mouth twice daily. polyethylene glycol 3350 58610 mg powder for oral solution (2 sources) Osmotic Laxative Start: 10-10-19 24 Polyethylene Glycol 3350 (Miralax) 17 gram/dose powder Active 4 GM PO ONCE 238 October 10, 2023 1:00am per colonoscopy instructions spironolactone 50 mg oral tablet (7 sources) Aldosterone Antagonist Start: 09-18-19 24 take 1 tablet by mouth once daily spironolactone (Aldactone) 50 MG tablet Take 50 mg by mouth daily. 09/18/2023 Active tiZANidine 4 mg oral tablet (15 sources) Central alpha-2 Adrenergic Agonist Start: 08-28-20 take 1 tablet by mouth once daily as needed tiZANidine (Zanaflex) 4 MG tablet Take 4 mg by mouth Nightly as needed. 08/28/2023 Active Start: 12-07-2021 take 1 capsule by [facility] twice daily Tizanidine (Zanaflex) 4 mg capsule Active 4 MG PO TWICE A DAY December 07, 2021 12:00am Start: 07-28-2020 End: 08-17-2020 TIZANIDINE HCL 2 MG TABS Chepe e 1 tablet every HS prn muscle pain TIZANIDINE HCL [id number] Tawana Mata NETSUITE CONSULTANT-DIRECTOR OF OFFICIATING Completed/Discontinued Medications Medication Drug Class(es) Dates Sig (Normalized) Sig (Original) amLODIPine 5 mg oral tablet (8 sources) Dihydropyridine Calcium [place] Lakeisha Start: 02-23-20 End: 02-23-20 21 take 5 mg by mouth once daily Amlodipine Discontinued 5 MG PO DAILY February 22, 2021 12:00am February 22, 2021 11:42am benzonatate 100 mg oral capsule (8 sources) Non-narcotic Antitussive Start: 10-23-19 End: 12-02-19 take 200 mg by mouth three times daily as needed Benzonatate Discontinued 200 MG PO 3 TIMES DAILY NEEDED October 23, 2017 1:00am December 01, 2020 1:44pm 24 hr buPROPion hydrochloride 150 mg extended release oral tablet (1 source) Aminoketone Start: 09-20-19 End: 10-09-19 buPROPion XL (Wellbutrin XL) 150 MG 24 hr tablet carvedilol 12.5 mg oral tablet (1 source) alpha-Adrenergic Lakeisha, beta-Adrenergic Lakeisha Start: 12-02-19 15 take 1 tablet by mouth twice daily carvedilol (COREG) 12.5 mg tablet Indications: HTN (hypertension) Take 1 tablet by mouth twice daily. 60 tablet 11 12/01/2014 Active Comment on above: Take 1 tablet by urszula th twice daily. cloNIDine hydrochloride 0.1 mg oral tablet (8 sources) Central alpha-2 Adrenergic Agonist Start: 02-17-20 End: 02-23-20 take 0.1 mg by mouth twice daily Clonidine Hcl Discontinued 0.1 MG PO TWICE A DAY February 16, 2021 12:00am February 22, 2021 11:13am fluconazole 150 mg oral tablet (8 sources) Azole Antifungal Start: 12-30-19 End: 02-17-20 Fluconazole Discontinued 150 MG PO .COMPLEX 2 December 29, 2020 12:00am February 16, 2021 3:09pm 150 mg PO take one po now and repeat in 3 days FLUoxetine 20 mg oral capsule (1 source) Serotonin Reuptake Inhibitor Start: 09-20-19 End: 10-09-19 FLUoxetine (PROzac) 20 MG capsule glipiZIDE 5 mg oral tablet (8 sources) Sulfonylurea Start: 12-17-19 End: 01-31-20 take 5 mg by mouth twice daily Glipizide Discontinued 5 MG PO TWICE A DAY December 16, 2020 12:00am January 30, 2022 1:25pm hydrALAZINE hydrochloride 25 mg oral tablet (1 source) Arteriolar Vasodilator Start: 11-08-19 23 End: 10-09-19 24 take 1 tablet by mouth twice daily hydrALAZINE (Apresoline) 25 MG tablet Take 25 mg by mouth 2 times daily. 0 11/08/2022 10/09/2023 Discontinued (Therapy completed) hydroCHLOROthiazide 25 mg oral tablet (8 sources) Thiazide Diuretic Start: 02-23-20 End: 01-31-20 take 25 mg by mouth once daily Hydrochlorothiazide Discontinued 25 MG PO DAILY February 22, 2021 12:00am January 30, 2022 1:25pm ibuprofen 200 mg oral capsule (8 sources) Nonsteroidal Anti-inflammatory Drug Start: 12-02-19 21 End: 02-17-20 21 take 200 mg by mouth every six hours Ibuprofen Discontinued 200 MG PO EVERY 6 HOURS December 01, 2020 12:00am February 16, 2021 3:10pm losartan potassium 100 mg oral tablet (20 sources) Angiotensin 2 Receptor Lakeisha Start: 02-23-20 End: 01-31-20 take 100 mg by mouth once daily Losartan Discontinued 100 MG PO DAILY 90 February 22, 2021 11:35am January 30, 2022 1:25pm Start: 02-16-2021 End: 02-22-2021 take 50 mg by mouth once daily Losartan Discontinued 5 0 MG PO DAILY February 16, 2021 12:00am February 22, 2021 11:37am Start: 12-16-2020 End: 02-16-2021 take 25 mg by mouth once daily Losartan Discontinued 2 5 MG PO DAILY December 16, 2020 12:00am February 16, 2021 3:06pm Magnesium (1 source) Start: 07-13-2020 MAGNESIUM 500 MG TABS 1 tablet daily MAGNESIUM [id number] Debbie Mares LPN magnesium gluconate 550 mg oral tablet (8 sources) Start: 12-01-2020 End: 02-16-2021 take 30 mg by mouth once daily Magnesium Discontinued 30 MG PO DAILY December 01, 2020 12:00am February 16, 2021 3:09pm oxybutynin chloride 5 mg oral tablet (8 sources) Cholinergic Muscarinic Antagonist Start: 12-16-2020 End: 01-30-2022 take 5 mg by mouth once Oxybutynin Chloride Discontinued 5 MG PO ONCE December 16, 2020 12:00am January 30, 2022 1:25pm potassium chloride 10 meq extended release oral tablet (8 sources) Start: 02-22-2021 End: 02-22-2021 take 10 mEq by mouth once daily Potassium Chloride Discontinued 10 MEQ PO DAILY February 22, 2021 12:00am February 22, 2021 11:35am predniSONE 20 mg oral tablet (8 sources) Start: 10-23-2017 End: 12-01-2020 take 20 mg by mouth twice daily at mealtime Prednisone Discontinued 20 MG PO TWICE A DAY October 23, 2017 1:00am December 01, 2020 1:43pm With food Problems Active Problems Problem Classification Problem Date Documented Da te Episodic/Chronic Abdominal pain (16 sources) Right upper quadrant pain; Translations: [Right upper quadrant pain] 02-21-2021 Episodic Acute bronchitis (1 source) Acute bronchitis, unspecified; Translations: [Acute bronchitis, unspecified] Onset: 5 Episodic Cardiac and circulatory congenital anomalies (8 sources) Ventricular septal defect; Translations: [Ventricular septal defect] Onset: 2 05-15-2012 Chronic Congestive heart failure; nonhypertensive (1 source) Left ventricular failure, unspecified; Translations: [Left ventricular failure, unspecified] Onset: 5 Chronic Diabetes mellitus without complication (8 sources) Type 2 diabetes mellitus; Translations: [Type 2 diabetes mellitus without complications] 02-21-2021 Chronic Disorders of lipid metabolism (16 sources) Hypertriglyceridemia; Translations: [Pure hyperglyceridemia] 02-16-2021 Chronic Essential hypertension (16 sources) Essential hypertension; Translations: [Essential (primary) hypertension] Onset: 4 02-21-2021 Chronic Genitourinary symptoms and ill-defined conditions (8 sources) Urge incontinence of urine; Translations: [Urge incontinence] Onset: 2 03-17-2012 Chronic Hypertension with complications and secondary hypertension (8 sources) Hypertensive urgency ; Translations: [Hypertensive urgency] 02-16-2021 Chronic Malaise and fatigue (8 sources) Fatigue; Translations: [Other fatigue] 12-16-2020 Episodic Other connective tissue disease (8 sources) Fibromyalgia; Translations: [Fibromyalgia] 02-21-2021 Episodic Other gastrointestinal disorders (8 sources) Dysphagia; Translations: [Dysphagia, unspecified] 12-16-2020 Episodic Other gastrointestinal disorders (6 sources) Heartburn; Translations: [Heartburn] 01-30-2022 Episodic Other gastrointestinal disorders (2 sources) Diarrhea; Translations: [Diarrhea, unspecified] 10-01-2023 Episodic Other gastrointestinal disorders (2 sources) Heartburn; Translations: [Heartburn] 10-01-2023 Episodic Other liver diseases (8 sources) Steatosis of liver; Translations: [Fatty (change of) liver, not elsewhere classified] 02-16-2021 Chronic Other liver diseases (3 sources) Fatty (change of) liver, not elsewhere classified; Translations: [Other chronic nonalcoholic liver disease] Onset: 4 10-01-2023 Chronic Other liver diseases (8 sources) Large liver; Translations: [Hepatomegaly, not elsewhere classified] 02-16-2021 Episodic Other nervous system disorders (8 sources) Numbness and tingling sensation of skin; Translations: [Anesthesia of skin] 12-16-2020 Episodic Other screening for suspected conditions (not mental disorders or infectious disease) (8 sources) Electrocardiogram abnormal; Translations: [Abnormal electrocardiogram [ECG] [EKG]] 02-21-2021 Episodic Other skin disorders (8 sources) Lichen sclerosus et atrophicus; Translations: [Lichen sclerosus et atrophicus] 12-01-2020 Chronic Spondylosis; intervertebral disc disorders; other back problems (2 sources) Cervical radiculopathy; Translations: [Degeneration of cervical intervertebral disc] Onset: 07-28-2020 Chronic Spondylosis; intervertebral disc disorders; other back problems (1 source) Lumbago with sciatica; Translations: [Lumbago with sciatica, unspecified side] Episodic Past or Other Problems Problem Classification Problem Date Documented Da te Episodic/Chronic Biliary tract disease (9 sources) Biliary calculus; Translations: [Calculus of gallbladder without cholecystitis without obstruction] Onset: 02-14-2024 02-21-2021 Episodic Hepatitis (1 source) Hepatitis A without hepatic coma; Translations: [Hepatitis A without hepatic coma] Onset: 02-19-2024 Episodic Other and unspecified benign neoplasm (9 sources) Adenoma of left adrenal gland; Translations: [Benign neoplasm of left adrenal gland] Onset: 10-09-2023 10-09-2023 Episodic Other gastrointestinal disorders (3 sources) Diarrhea, unspecified; Translations: [Diarrhea] Onset: 02-25-2024 10-01-2023 Episodic Other liver diseases (3 sources) Hepatomegaly, not elsewhere classified; Translations: [Hepatomegaly] Onset: 02-19-2024 10-01-2023 Episodic Unclassified (1 source) Problem Results Test Name Value Interpretation Reference Range Facility 36on 04-13-2025 36 S: Patient spoke mariusz AGUILAR nurse regarding med refill B: Metoprolol Tartrate 50 MG Tablet A: Patient states she has been out for 3 days, requesting this be sent in R: Spoke with dr Mckeon who gave telephone order for metoprolol 50mg twice daily #60, no refills Rx called into [facility] [phone] Patient made aware, no further needs Reason for Disposition [1] Prescription refill request for ESSENTIAL medicine (i.e., likelihood of harm to patient if not taken) AND [2] triager unable to refill per department policy Protocols used: Medication Refill and Renewal [id number] [facility] COMPREHENSIVE METABOLIC PANE [place] 11-20-2024 Albumin [Mass/Vol] 4.5 g/dL Normal 3.6-5.1 [facility] Comment on above: Order Comment: 0 FASTING:YES FASTING: YES Performed By: #### 1 [id number] #### [facility] [place] [address] [employer]crete Pipe Making Machine Operator: Jose Eduardo Knight MD Albumin/Globulin [Mass ratio] 2.0 {ratio} Normal 1.0-2.5 [facility] Comment on above: Order Comment: 0 FASTING:YES FASTING: YES Performed By: #### 1 [id number] #### [facility] [place] [address] [employer] Machine Operator: Jose Eduardo Knight MD ALP [Catalytic activity/Vol] 68 U/L Normal 37-153 [facility] Comment on above: Order Comment: 0 FASTING:YES FASTING: YES Performed By: #### 1 [id number] #### [facility] [place] [address] [employer] P[employer] Making Machine Operator: Jose Eduardo Knight MD ALT [Catalytic activity/Vol] 28 U/L Normal 6-29 [facility] Comment on above: Order Comment: 0 FASTING:YES FASTING: YES Performed By: #### 1 0231 #### [facility] [place] [address] [employer] P[employer] Making Machine Operator: Jose Eduardo Knight MD AST [Catalytic activity/Vol] 25 U/L Normal 10-35 [facility] Comment on above: Order Comment: 0 FASTING:YES FASTING: YES Performed By: #### 1 0231 #### [facility] [place] [address] [employer] P[employer] Making Machine Operator: Jose Eduardo Knight MD Bilirubin [Mass/Vol] 1.3 mg/dL High 0.2-1.2 [facility] Comment on above: Order Comment: 0 FASTING:YES FASTING: YES Performed By: #### 1 0231 #### [facility] [address], [address] [place] [address] Concrete Pipe Making Machine Operator: Jose Eduardo Knight MD BUN/CREATININE RATIO SEE NOTE: Normal 6-22 [facility] Comment on above: Order Comment: 0 FASTING:YES FASTING: YES Result Comment: Not Reported: BUN and Creatinine are within reference range. Performed By: #### 1 0231 #### [facility] [address], [address] [place] [address] [employer]crete Pipe Making Machine Operator: Jose Eduardo Knight MD Calcium [Mass/Vol] 9.5 mg/dL Normal 8.6-10.4 [facility] Comment on above: Order Comment: 0 FASTING:YES FASTING: YES Performed By: #### 1 0231 #### [facility] [address], [address] [place] [address] [employer]crete P[employer] Making Machine Operator: Jose Eduardo Knight MD Chloride [Moles/Vol] 99 mmol/L Normal 98-110 [facility] Comment on above: Order Comment: 0 FASTING:YES FASTING: YES Performed By: #### 1 0231 #### [facility] [place] [address] [employer] P[employer] Making Machine Operator: Jose Eduardo Knight MD CO2 [Moles/Vol] 26 mmol/L Normal 20-32 [facility] Comment on above: Order Comment: 0 FASTING:YES FASTING: YES Performed By: #### 1 0231 #### [facility] [place] [address] [employer] Making Machine Operator: Jose Eduardo Knight MD Creatinine [Mass/Vol] 0.64 mg/dL Normal 0.50-1.[address] [facility] Comment on above: Order Comment: 0 FASTING:YES FASTING: YES Performed By: #### 1 0231 #### [facility] [place] [address] [employer] P[employer] Making Machine Operator: Jose Eduardo Knight MD GFR/1.73 sq M.predicted among non-blacks MDRD (S/P/Bld) [Vol rate/Area] 97 mL/min/{1.73_m2} Normal > OR = 60 [facility] Comment on above: Order Comment: 0 FASTING:YES FASTING: YES Performed By: #### 1 0231 #### [facility] [address], [address] [place] [address] Concrete Pipe Making Machine Operator: Jose Eduardo Knight MD Globulin (S) [Mass/Vol] 2.3 g/dL Normal 1.9-3.7 [facility] Comment on above: Order Comment: 0 FASTING:YES FASTING: YES Performed By: #### 1 0231 #### [facility] [address], [address] [place] [address] [employer]crete P[employer] Making Machine Operator: Jose Eduardo Knight MD Glucose [Mass/Vol] 216 mg/dL High 65-99 [facility] Comment on above: Order Comment: 0 FASTING:YES FASTING: YES Result Comment: Fasting reference interval For someone without known diabetes, a glucose value >125 mg/dL indicates that they may have diabetes and this should be confirmed with a follow-up test. Performed By: #### 1 4111 #### [facility] [address], [address] [place] [address] Concrete Pipe Making Machine Operator: Jose Eduardo Knight MD Potassium [Moles/Vol] 3.7 mmol/L Normal 3.5-5.3 [facility] Comment on above: Order Comment: 0 FASTING:YES FASTING: YES Performed By: #### 1 6091 #### [facility] [address], [address] [place] [address] [employer]crete P[employer] Making Machine Operator: Jose Eduardo Knight MD Protein [Mass/Vol] 6.8 g/dL Normal 6.1-8.1 [facility] Comment on above: Order Comment: 0 FASTING:YES FASTING: YES Performed By: #### 1 0231 #### [facility] [address], [address] [place] [address] Concrete P[employer] Making Machine Operator: Jose Eduardo Knight MD Sodium [Moles/Vol] 136 mmol/L Normal 135-146 [facility] Comment on above: Order Comment: 0 FASTING:YES FASTING: YES Performed By: #### 1 0231 #### [facility] [address], [address] [place] [address] Concrete P[employer] Making Machine Operator: Jose Eduardo Knight MD Urea nitrogen [Mass/Vol] 12 mg/dL Normal 7-25 [facility] Comment on above: Order Comment: 0 FASTING:YES FASTING: YES Performed By: #### 1 0231 #### [facility] [address], [address] [place] [address] Concrete P[employer] Making Machine Operator: Jose Eduardo Knight MD 36on 11-01-2024 36 S: Patient spoke wit h [facility] nurse regarding appointment B: Onset of symptoms/concern today A: pt calling to cancel appointment for 11/02 at 1030 am with Fili Deluca NP R: pt advised appointment is cancelled per her request and the office would be back in contact to reschedule. Patient understands care advice. No further needs at this time. Patient instructed to call back with new or worsening symptoms. Reason for Disposition Requesting regular office appointment Protocols used: Information Only Call - [facility] 10-30 Chest PA and Lateral [facility] [address] [place] [id number] Chest PA and Lateral MR#: [id number] Acct: [id number] Name: PETER DAHL Rep #: [id number] : 1955 F 69 From: Juan Jose delatorre MD PCP: Dr. Josesito Mckeon MD Status: REG CLI Study: Chest PA and Lateral Date of Exam: 10/30/24 Exam# [id number] Ordering Dr: Henry Grider PA PA PROCEDURE: CHEST PA AND LATERAL REASON FOR EXAM: Cough. TECHNIQUE: Frontal and lateral views of the chest. COMPARISON: None. FINDINGS: The heart size is normal. Calcified bilateral hilar lymph nodes. Questionable 8.8 mm nodule in the left suprahilar region. A lordotic view is recommended. Degenerative changes are identified within the thoracic spine. RAD/Chest PA and Lateral IMPRESSION: Questionable 8.8 mm nodule in the left suprahilar region. A lordotic view is recommended for further evaluation. Reading Location: [id number] CC: NICOLAS Waite; Dr. Josesito Mckeon MD Mechanical Systems Design Engineer: Signed Normal [facility] Urgent Care Visit Reporton 0 10-30-2024 Urgent Care Visit Report [facility] [address], [address] [place] [address] OFFICE VISIT Date of Service: 10/30/24 MR#: [id number] Acct: [id number] Name: PETER DAHL Rep #: [id number] : 1955 Provider: NICOLAS Waite Age/Sex: 69/F Location: [facility] Status: Signed Intake Vital Signs 02/19/24 09:18 10/30/24 13:13 Height 5 ft 8 in 5 ft 8 in Weight: 237 lb 2 oz BMI 36.0 BP 114/60 Position Sitting Pulse 61 Temp 97.8 F Pulse Oximetry (%) 97 Oxygen Delivery Method room air Intake Visit Reasons: cough Accompanied by: Self Allergies clonidine Adverse Reaction (Verified 10/30/24 13:14) depression lisinopril Adverse Reaction (Verified 10/30/24 13:14) coughing Medications ???Medication ???Instructions ???Recorded ???Confirmed ???Type magnesium oxide 500 mg PO BID 02/22/21 02/28/24 Hi story metformin 500 mg tablet,extended 500 mg PO BID 02/19/24 10/30/24 Hi story release 24 hr metoprolol tartrate 50 mg tablet 100 mg PO BID BLOOD PRESSURE 02/1810/30/24 History spironolactone 100 mg tablet 100 mg PO QDAY 02/19/24 10/30/24 H istory valsartan 160 mg tablet 160 mg PO QDAY 02/19/24 02/28/24 H istory tizanidine 4 mg tablet 4 mg PO QHS PRN PRN muscle 4 02/28/24 History spasticity brompheniramine-pseudo ephedrine-DM 5 ml PO Q4-6H PRN cold symptoms 10/30/24 10/30/24 Rx 2 mg-30 mg-10 mg/5 mL oral syrup #100 mL (Bromfed DM) methylprednisolone 4 mg tablets in 4 mg PO PER PKG DIR 6 days #21 t abs 10/30/24 10/30/24 Rx a dose pack (Medrol (Aimee)) Have you fallen in the past year?: No Nurse's Note: Patient has a cough for a couple weeks. Patient has right side rib/abdominal pain that started a week after the cough. [facility] Medical History (Updated 10/30/24 @ 13:14 by Henry VALENZUELA, PA) Wears glasses Wears dentures Post-menopausal Depression Anxiety Diabetes Fibromyalgia Bladder disease Low iron Fatty liver Restless legs Back pain Heartburn Non-smoker History of edema History of echocardiogram Cardiology follow-up encounter Acute hepatitis A Gout Essential (primary) hypertension Hyperlipidemia RUQ abdominal pain Epigastric pain Cholelithiasis Numbness and tingling Dysphagia Fatigue Type 2 diabetes mellitus Fibromyalgia Surgical History (Updated 02/28/24 @ 13:22 by Marlyn Benson) History of total abdominal hysterectomy History of left heart catheterization History of tubal ligation History of oral surgery History of tonsillectomy Family History Mother Heart disease COPD (chronic obstructive pulmonary disease) Diabetes Father Diabetes Lung cancer Social History household members: none current occupational status: retired history of recent travel: No Smoking Status: Never smoker alcohol intake: current alcohol intake frequency: holidays/special occasions only substance use type: does not use caffeine: Yes what type of physical activity do you participate in: none seatbelt use: always do you feel safe at home: Yes additional social history: single HPI HPI Details: PETER DAHL, is a 69 F who presents to the office today for complaint of a cough for the couple weeks which seem to be improved and then worsened again recently. Patient also states that she has right-sided rib and abdominal pain that started approximately 1 week after the cough and is worse with coughing. She denies nausea, vomiting or diarrhea. No pelvic or lower abdominal pain. No hemoptysis, shortness of breath or difficulty breathing. No other associated symptoms or alleviating/aggravatin g factors. ROS Const Constitutional: No other (6 system ROS completed with pertinent findings in the HPI otherwise normal.) Exam Const General: cooperative and well developed HENNY Head: normal to inspection and atraumatic Ears: hearing grossly normal bilaterally Nose: nasal discharge clear Face and sinus: normal facial exam Mouth: oral mucosae normal Throat: abnormal tonsil bilaterally hypertrophy 1+ Resp Effort Inspection: normal respiratory effort and no audible wheezes Auscultation: Bilateral: Clear to Auscultation Cardio Rate: regular rate Rhythm: regular rhythm Neuro General: patient alert Psych Appearance: grossly normal Mental Status: mental status grossly normal Coding Level of Care Code Off vis,new,level 4 Diagnoses Acute bronchitis J20.9 Assessment and Plan Assessment and Plan (1) Acute bronchitis: Status: Acute Plan: Chest x-ray read and interpreted by myself find no acute osseous abnormality, awaiting radiology interpretation at time of patient discharge. Bromfed and Medrol Dosepak as prescr (more content not included)... [facility] 36on 06-25-2024 36 Name of caller: Peter Contact phone number: [phone] Relationship to Patient: patient Provider: Practice: ENDO Chief Complaint/Reason for Call: Patient cancelled appointment for today. Did not wish to reschedule. FYI Best time of day caller can be reached: any Patient advised that office/PCP has 24-48 business hours to return their call: no [facility] 36on 06-15-2024 36 Called pt and rescheduled appt. [facility] 36 Name of Caller: jo Contact Reason for Appointment: patient was rescheduled to 08/12/24 with Cari. Jo states she can not and will not travel to [place]. It has to be [place] or nothing. Please call her back to reschedule Office Name: neuro [facility] 12 Lead EKGon 03-03-2024 12 Lead EKG [facility] [address] [place] [address] 12 Lead EKG 03/03/24 1358 MR#: [id number] Acct: [id number] Name: PETER DAHL ASCENCION Rep #: [id number] : 1955 68 From: Eric Robles MD Attending Dr: Dr. Sharron Best MD Status: P RE [facility] Ordering Dr: Kyle Brody MD Date: 03/03/24 Location: [facility] Sex: F C Admitted: Test Reason : PREOP Blood Pressure : / mmHG Vent. Rate : 055 BPM Atrial Rate : 055 BPM P-R Int : 238 ms QRS Dur : 086 ms QT Int : 418 ms P-R-T Axes : 025 -02 117 degrees QTc Int : 399 ms Sinus bradycardia with 1st degree A-V block Septal infarct , age undetermined T wave abnormality, consider lateral ischemia Abnormal ECG Confirmed by ERIC ROBLES MD ([id number]), editorial project manager LESLIE RUIZ ([id number]) on 03/04/2024 9:44:50 AM Referred By: Sharron Best Confirmed By:ERIC ROBLES MD 03/04/24 0944 Date Eric Robles MD CC: Dr. Josesito Mckeon MD; Dr. Kyle Brody MD; Dr. Sharron Best MD Signed Normal [facility] Basic Metabolic Profile (BMP )on 03-03-2024 BUN/CRE 23.1 RATIO High 10-20 [facility] Comment on above: Performed By: #### L 501.9985, L500.2500 ####[facility] [address] [place], [address] CA,Total 9.5 mg/dL Normal 8.5-10.1 [facility] Comment on above: Performed By: #### L 501.9985, L500.2500 ####[facility] [address] [place], [address] Chloride [Moles/Vol] 102 mmol/L Normal 98-107 [facility] Comment on above: Performed By: #### L 501.9985, L500.2500 ####[facility] [address] [place], [address] CO2 [Moles/Vol] 28.0 mmol/L Normal 21.0-32.0 [facility] Comment on above: Performed By: #### L 501.9985, L500.2500 ####[facility] [address] [place], [address] Creatinine [Mass/Vol] 0.86 mg/dL Normal 0.55-1.02 [facility] Comment on above: Result Comment: The validity of the calculated GFR GFRAA in patients over 70 years has not been determined. Clinical correlation is essential. Performed By: #### L 501.9985, L500.2500 ####[facility] [address] [place], [address] EST GFR - AA 84 mL/min Normal >60 [facility] Comment on above: Result Comment: Afri can [place] GFR Calc Performed By: #### L 501.9985, L500.2500 ####[facility] [address] [place], [address] GAP 7 Normal 5-15 [facility] Comment on above: Performed By: #### L 501.9985, L500.2500 ####[facility] [address] [place], [address] GFR/1.73 sq M.predicted among non-blacks MDRD (S/P/Bld) [Vol rate/Area] 70 mL/min/{1.73_m2} Normal >60 [facility] Comment on above: Result Comment: Non- GFR Calc Performed By: #### L 501.9985, L500.2500 ####[facility] [address] [place], [address] Glucose [Mass/Vol] 347 mg/dL High 74-106 [facility] Comment on above: Result Comment: Gluc ose result greater than or equal to 200 mg/dL suggests DIABETES MELLITUS per A.D.A. criteria. Performed By: #### L 501.9985, L500.2500 ####[facility] [address] [place], [address] Potassium [Moles/Vol] 3.9 mmol/L Normal 3.5-5.1 [facility] Comment on above: Performed By: #### L 501.9985, L500.2500 ####[facility] [address] [place], [address] Sodium [Moles/Vol] 137 mmol/L Normal 136-145 [facility] Comment on above: Performed By: #### L 501.9985, L500.2500 ####[facility] [address] [place], [address] Urea nitrogen [Mass/Vol] 20 mg/dL High - [facility] Comment on above: Performed By: #### L 501.9985, L500.2500 ####[facility] [address] [place], [address] Hemoglobin A1con 03-03-2024 HbA1c (Bld) [Mass fraction] 8.2 % High 3.8-5.6 [facility] Comment on above: Result Comment: Norm al < 5.7 % Prediabetic 5.7 - 6.4 % Diabetic >or= 6.5 % Please note range changes. Performed By: #### L 501.9985, L500.2500 ####[facility] [address] [place], [address] Liver Profileon 02-19-2024 Albumin [Mass/Vol] 3.8 g/dL Normal 3.2-5.0 [facility] Comment on above: Performed By: #### L 500.3400 ####[facility] [address] [place], [address] ALK P 74 U/L Normal 45-117 [facility] Comment on above: Performed By: #### L 500.3400 ####[facility] [address] [place], [address] ALT [Catalytic activity/Vol] 41 U/L Normal 13-56 [facility] Comment on above: Performed By: #### L 500.3400 ####[facility] [address] [place], [address] AST [Catalytic activity/Vol] 28 U/L Normal 15-37 [facility] Comment on above: Performed By: #### L 500.3400 ####[facility] [address] [place], [address] Bilirubin [Mass/Vol] 0.90 mg/dL Normal 0.20-1.00 [facility] Comment on above: Result Comment: For patients on eltrombopag therapy, use of Dimension [place] TBIL is not recommended. Performed By: #### L 500.3400 ####[facility] [address] [place], [address] Bilirubin.direct [Mass/Vol] 0.24 mg/dL Normal 0.00-0.30 [facility] Comment on above: Performed By: #### L 500.3400 ####[facility] [address] [place], [address] Globulin (S) [Mass/Vol] 3.4 g/dL Normal 2.2-4.2 [facility] Comment on above: Performed By: #### L 500.3400 ####[facility] [address] [place], [address] T PROT 7.2 g/dL Normal 6.4-8.2 [facility] Comment on above: Performed By: #### L 500.3400 ####[facility] [address] [place], [address] Surgery Visit Reporton 02-18 Surgery Visit Report [facility] [address] [place], [place] [address] OFFICE VISIT Date of Service: 02/19/24 MR#: [id number] Acct: [id number] Name: PETER DAHL Rep #: [id number] : 1955 Provider: Dr. Sharron napoles MD Age/Sex: 68/F Location: [facility] Status: Signed Intake Vital Signs 01/30/22 12:59 02/19/24 09:18 Height 5 ft 8 in 5 ft 8 in Weight: 237 lb BMI 36.0 BP 214/80 H Blood Pressure Location Rt brachial Position Sitting Respiration 18 Intake Visit Reasons: ABNORMAL HIDA Chief Complaint: gallstones Information Technology Intern Required: No Is patient in pain?: Yes (generalized) Allergies clonidine Adverse Reaction (Verified 02/19/24 09:19) depression lisinopril Adverse Reaction (Verified 02/19/24 09:19) coughing Medications ???Medication ???Instructions ???Recorded ???Confirmed ???Type cholecalciferol (vitamin D3) 125 125 mcg PO DAILY 02/16/21 02/19/24 History mcg (5,000 unit) capsule magnesium oxide 500 mg PO BID 02/22/21 02/19/24 History bisacodyl 5 mg tablet,delayed 5 mg PO ONCE #4 tabs 10/10/23 02/19/24 Rx release (Dulcolax (bisacodyl)) polyethylene glycol 3350 17 4 g PO ONCE #238 grams 10/10/23 02/19/24 Rx gram/dose oral powder (Miralax) metformin 500 mg tablet,extended 1,000 mg PO DAILY 02/19/24 02/19/24 History release 24 hr metoprolol tartrate 50 mg tablet 100 mg PO BID BLOOD PRESSURE 02/19/24 02/19/24 History spironolactone 100 mg tablet 100 mg PO QDAY 02/19/24 02/19/24 History valsartan 160 mg tablet 160 mg PO QDAY 02/19/24 02/19/24 History PFSH Medical History Acute hepatitis A Gout Elevated liver enzymes Essential (primary) hypertension Hyperlipidemia RUQ abdominal pain Epigastric pain Cholelithiasis Numbness and tingling Dysphagia Fatigue Type 2 diabetes mellitus Fibromyalgia Surgical History History of total abdominal hysterectomy History of left heart catheterization History of tubal ligation History of oral surgery History of tonsillectomy Family History Mother Heart disease COPD (chronic obstructive pulmonary disease) Diabetes Father Diabetes Lung cancer Social History household members: none current occupational status: retired history of recent travel: No Smoking Status: Never smoker alcohol intake: current alcohol intake frequency: holidays/special occasions only substance use type: does not use caffeine: Yes what type of physical activity do you participate in: none seatbelt use: always do you feel safe at home: Yes additional social history: single HPI HPI HPI: 68-year-old female presents due to abnormal HIDA scan. Patient's has a history of fibromyalgia that she has not really noticed increased pain after eating this states she may have a little bit of a decreased appetite. Patient did see Dr. Nguyễn for fatty liver and HIDA scan was ordered which is less than 8% at 30 minutes. Patient at the time of seeing Dr. Nguyễn was having diarrhea which has improved her hepatitis A was positive on 12/24. Patient states she does get reflux but only depending on the type of food she eats like tomato sauces. Patient's previous LFTs were normal I do not have a recent LFT. Patient has had occasional episodes of increased pain however she did not directly relate them to food. Patient did have increased pain and discomfort with the CCK injection during HIDA. ROS General General: Yes fatigue; No weight change, appetite, colon cancer, breast cancer or weakness HEENT HEENT: No difficulty swallowing, eye injury, eye surgery, swollen glands or hoarseness Endo Endocrine: Yes diabetes mellitus; No thyroid disease, thyroid cancer, Hair loss, heat intolerance or cold intolerance Skin Skin: No rash or changing moles Breast Breast: No left breast lump, right breast lump, nipple discharge, breast pain, abnormal mammogram, abnormal US or breast enlargement Musc Musculoskeletal: Yes back problems; No arthritis, rheumatoid arthritis, gout or joint pain Cardio Cardiovascular: Yes high blood pressure; No murmur, pacemaker, heart disease, atrial fibrillation, heart attack, heart stent, palpitations, shortness of breat with exertion or chest pain Psych Psychiatric: Yes depression and anxiety; No hearing voices Resp Respiratory: No shortness of breath, No sleep apnea, No cough, No COPD, No asthma, No emphysema and No wheezing Gastro Gastrointestinal: No abdominal pain, No nausea or vomiting, No diarrhea, Yes constipation, No blood in stool, No acid reflux, No hemorrhoids, No ulcers, Yes gallbladder problem and No black,tarry (more content not included)... Normal [facility] Hepatobilliary Img w/Pharm I nton 02-05-2024 Hepatobilliary Img w/Pharm Int [facility] [address] [place] [address] Hepatobilliary Img w/Pharm Int MR#: [id number] Acct: [id number] Name: PETER DAHL Rep #: [id number] : 1955 68 From: Abhijit bravo MD PCP: Dr. oJsesito Mckeon MD Status: REG CLI Study: Hepatobilliary Img w/Pharm Int Date of Exam: 0 02/05/24 Exam# [id number] Ordering Dr: Ric Nguyễn DO [id number] NUCLEAR MEDICINE BILIARY SCAN CLINICAL: Female, 68 years old. Epigastric pain, gallstones TECHNIQUE: Following the intravenous administration of 5.6 mCi of Tc Mebrofenin, hepatobiliary images was performed. Cholecystokinin (0.02 ug/kg) was then administered intravenously over a 30 minute period. COMPARISON STUDIES : NM - None. CR - Not available for review at this time. CT - CT of abdomen and pelvis dated August 13, 2023. MR - Not available for review at this time. US - right upper quadrant ultrasound dated November 12, 2023 FINDINGS: Relatively prompt and homogeneous radiopharmaceutical concentration is noted by a normal sized liver. There are no parenchymal defects noted.. Gallbladder activity is identified at 30 minutes post radiopharmaceutical administration. Small bowel activity is identified at 30 minutes post radiopharmaceutical administration. Washout of the radiopharmaceutical by the hepatic parenchyma occurs in a normal fashion on qualitative inspection. The post Cholecystokinin gallbladder ejection fraction is calculated at 11 minutes, 21 minutes, 31 minutes minutes following Cholecystokinin administration was noted to be no intravenous demonstrated at 11 minutes, no emptying is demonstrated at 21 minutes, there is a persistent empty demonstrated at 31 minutes, all which are markedly abnormal indicating poor gallbladder function/biliary dyskinesia; (normal greater than 35%). NM/Hepatobilliary Img w/Pharm Int IMPRESSION: 1. The post Cholecystokinin gallbladder ejection fraction is calculated at 11 minutes, 21 minutes, 31 minutes minutes following Cholecystokinin administration was noted to be no intravenous demonstrated at 11 minutes, no emptying is demonstrated at 21 minutes, there is a persistent empty demonstrated at 31 minutes, all which are markedly abnormal indicating poor gallbladder function/biliary dyskinesia; (normal greater than 35%). 2. The cystic duct is patent with normal uptake into the gallbladder, however the ejection fraction is absent or markedly and abnormally low. A gallbladder ejection fraction calculated to be greater than 35% following the administration of Cholecystokinin makes the probability of functional hepatobiliary disease (gallbladder and/or sphincter of Oddi dyskinesia) and/or organic hepatobiliary disease (chronic acalculous cholecystitis and/or cystic duct syndrome) to be low. (Gurpreet Thomas et al, Journal of Nuclear Medicine 32:1695, 1991). Electronically Signed: Abhijit Sánchez MD at 14:10 EDT , CC: Dr. Josesito Mckeon MD; Ric Nguyễn DO Mechanical Systems Design Engineer: Signed Normal [facility] [id number] 01-01-2024 M7400.3302 __ TESTING PERFORMED AT [facility]. ORIGINAL REPORT ON FILE IN LAB CONTAINS ADDITIONAL TEST SITE INFORMATION. Giardia Lamblia EIA NEGATIVE Normal [facility] Comment on above: Performed By: #### M 100.0605, M600.5000, L7000.0750, M100.637, L7000.0700, M7400.3302, M100.6796 #### [facility] Laboratory [address] [place], [address] Ova and Parasites 8623on OP OVA AND PARASITES EXAM, ROUTINE These results were obtained using wet preparation(s) and trichrome stained smear. This test does not include testing for Crytosporidium parvum, Cyclospora, or Microsporidia. O+P Spec Micro One negative specimen does not rule out the possibility of a parasitic infection. TESTING PERFORMED AT [facility]. ORIGINAL REPORT ON FILE IN LAB CONTAINS ADDITIONAL TEST SITE INFORMATION. Ova/Parasite Exam NO OVA, CYSTS, OR PARASITES FOUND. [facility] Comment on above: Performed By: #### M 100.0605, M600.5000, L7000.0750, M100.637, L7000.0700, M7400.3302, M100.6796 #### [facility] Laboratory [address] [place], [address] Calprotectin, Stoolon [address] 16 ug/g Normal 0-120 [facility] Comment on above: Result Comment: Conc entration Interpretation Follow-Up < 5 - 50 ug/g Normal None >50 -120 ug/g Borderline Re-evaluate in 4-6 weeks >120 ug/g Abnormal Repeat as clinically indicated Performed at: [facility] [address] [id number] Architecture Analyst: Yevgeniy Causey MD, Phone: [phone] Performed By: #### M 100.0605, M600.5000, L7000.0750, M100.637, L7000.0700, M7400.3302, M100.6796 #### [facility] [address] [place], [address] L5500.0550on 12-31-2023 BEEF <0.10 Normal Class 0 [facility] Comment on above: Performed By: #### M 100.0605, M600.5000, L7000.0750, M100.637, L7000.0700, M7400.3302, M100.6796 #### [facility] [address] [place], [address] CHOCOLATE <0.10 Normal Class 0 [facility] Comment on above: Performed By: #### M 100.0605, M600.5000, L7000.0750, M100.637, L7000.0700, M7400.3302, M100.6796 #### [facility] [address] [place], [address] CODFISH <0.10 Normal Class 0 [facility] Comment on above: Performed By: #### M 100.0605, M600.5000, L7000.0750, M100.637, L7000.0700, M7400.3302, M100.6796 #### [facility] [address] [place], [place], [id number] COMMENT Comment Normal . [facility] Comment on above: Result Comment: Luisito paris of Specific IgE Class Description of Class ----- < 0.10 0 Negative 0.10 - 0.31 0/I Equivocal/Low 0.32 - 0.55 I Low 0.56 - 1.40 II Moderate 1.41 - 3.90 III High 3.91 - 19.00 IV Very High 19.01 - 100.00 V Very High >100.00 Very High Performed By: #### M 100.0605, M600.5000, L7000.0750, M100.637, L7000.0700, M7400.3302, M100.6796 #### [facility] [address] [place], [address] CORN <0.10 Normal Class 0 [facility] Comment on above: Performed By: #### M 100.0605, M600.5000, L7000.0750, M100.637, L7000.0700, M7400.3302, M100.6796 #### [facility] [address] [place], [address] EGG, WHOLE <0.10 Normal Class 0 [facility] Comment on above: Result Comment: Perf ormed at: - [facility] [id number] Architecture Analyst: Yevgeniy Causey MD, Phone: [phone] Performed By: #### M 100.0605, M600.5000, L7000.0750, M100.637, L7000.0700, M7400.3302, M100.6796 #### [facility] [address] [place], [address] MILK (COW) <0.10 Normal Class 0 [facility] Comment on above: Performed By: #### M 100.0605, M600.5000, L7000.0750, M100.637, L7000.0700, M7400.3302, M100.6796 #### [facility] [address] [place], [address] MUSSELS <0.10 Normal Class 0 [facility] Comment on above: Performed By: #### M 100.0605, M600.5000, L7000.0750, M100.637, L7000.0700, M7400.3302, M100.6796 #### [facility] [address] [place], [address] PEANUT <0.10 Normal Class 0 [facility] Comment on above: Performed By: #### M 100.0605, M600.5000, L7000.0750, M100.637, L7000.0700, M7400.3302, M100.6796 #### [facility] [address] [place], [address] PORK <0.10 Normal Class 0 [facility] Comment on above: Performed By: #### M 100.0605, M600.5000, L7000.0750, M100.637, L7000.0700, M7400.3302, M100.6796 #### [facility] [address] [place], [address] SALMON <0.10 Normal Class 0 [facility] Comment on above: Performed By: #### M 100.0605, M600.5000, L7000.0750, M100.637, L7000.0700, M7400.3302, M100.6796 #### [facility] [address] [place], [address] SHRIMP <0.10 Normal Class 0 [facility] Comment on above: Performed By: #### M 100.0605, M600.5000, L7000.0750, M100.637, L7000.0700, M7400.3302, M100.6796 #### [facility] [address] [place], [address] SOYBEAN <0.10 Normal Class 0 [facility] Comment on above: Performed By: #### M 100.0605, M600.5000, L7000.0750, M100.637, L7000.0700, M7400.3302, M100.6796 #### [facility] [facility] [address] [place], [address] TUNA <0.10 Normal Class 0 [facility] Comment on above: Performed By: #### M 100.0605, M600.5000, L7000.0750, M100.637, L7000.0700, M7400.3302, M100.6796 #### [facility] [address] [place], [address] WHEAT <0.10 Normal Class 0 [facility] Comment on above: Performed By: #### M 100.0605, M600.5000, L7000.0750, M100.637, L7000.0700, M7400.3302, M100.6796 #### [facility] [address] [place], [address] L7000.0750on 12-31-2023 P ELASTASE,FECA < 50 Low >200 [facility] Comment on above: Result Comment: Resu lt Units: ug Elast./g Results verified by repeat testing Severe Pancreatic Insufficiency: <100 Moderate Pancreatic Insufficiency: 100 - 200 Normal: >200 Performed at: [facility] [address] [id number] Architecture Analyst: Yevgeniy Causey MD, Phone: [phone] Performed By: #### M 100.0605, M600.5000, L7000.0750, M100.637, L7000.0700, M7400.3302, M100.6796 #### [facility] [address] [place], [place], [address] Celiac Disease Profileon ENDOMYSIAL IGA Negative Normal Negative [facility] Comment on above: Order Comment: N Performed By: #### M 100.0605, M600.5000, L7000.0750, M100.637, L7000.0700, M7400.3302, M100.6796 #### [facility] [address] [place], [place], [address] tTG IGA <2 Normal 0-3 [facility] Comment on above: Order Comment: N Result Comment: Nega tive 0 - 3 Weak Positive 4 - 10 Positive >10 Tissue Transglutaminase (tTG) has been identified as the endomysial antigen. Studies have demonstr- ated that endomysial IgA antibodies have over 99% specificity for gluten sensitive enteropathy. Performed By: #### M 100.0605, M600.5000, L7000.0750, M100.637, L7000.0700, M7400.3302, M100.6796 #### [facility] [address] [place], [place], [address] Hepatitis Panel Acuteon 12-15 HEP B CORE,IgM Negative Normal Negative [facility] Comment on above: Order Comment: N Performed By: #### L 503.6550, L501.9520, L300.3900, L506.0400, L3000.0375, L2100.0000, L501.6710, L3410.2400, L5500.0550, L3400.8000, L504.2610, L501.5000, L101.9900, L501.70251, L503.6150, L100.9950, L503.6075, L3100.3425, L100.0100, L3200.0500 ####[facility] [address] [facility]. [place], [place], [id number] HEP B SURF AG Negative Normal Negative [facility] Comment on above: Order Comment: N Performed By: #### L 503.6550, L501.9520, L300.3900, L506.0400, L3000.0375, L2100.0000, L501.6710, L3410.2400, L5500.0550, L3400.8000, L504.2610, L501.5000, L101.9900, L501.01088, L503.6150, L100.9950, L503.6075, L3100.3425, L100.0100, L3200.0500 ####[facility] [address] [facility] [place], [address] HEP C VIRUS AB Non-Reactive Normal Non Reactive [facility] Comment on above: Order Comment: N Performed By: #### L 503.6550, L501.9520, L300.3900, L506.0400, L3000.0375, L2100.0000, L501.6710, L3410.2400, L5500.0550, L3400.8000, L504.2610, L501.5000, L101.9900, L501.18658, L503.6150, L100.9950, L503.6075, L3100.3425, L100.0100, L3200.0500 ####[facility] [address] [facility] [place], [address] HEPATITIS A-IgM Positive Abnormal Negative [facility] Comment on above: Order Comment: N Performed By: #### L 503.6550, L501.9520, L300.3900, L506.0400, L3000.0375, L2100.0000, L501.6710, L3410.2400, L5500.0550, L3400.8000, L504.2610, L501.5000, L101.9900, L501.59510, L503.6150, L100.9950, L503.6075, L3100.3425, L100.0100, L3200.0500 ####[facility] [address] [place], [address] CALVIN + Protein Elect, Serumon 12-30-2023 Albumin [Mass/Vol] 4.0 g/dL Normal 2.9-4.4 [facility] Comment on above: Order Comment: N Performed By: #### M 100.0605, M600.5000, L7000.0750, M100.637, L7000.0700, M7400.3302, M100.6796 #### [facility] [address] [place], [address] Albumin/Globulin [Mass ratio] 1.4 {ratio} Normal 0.7-1.7 [facility] Comment on above: Order Comment: N Performed By: #### M 100.0605, M600.5000, L7000.0750, M100.637, L7000.0700, M7400.3302, M100.6796 #### [facility] [address] [place], [address] ZCXYQ-6-ULPC 0.2 g/dL Normal 0.0-0.4 [facility] Comment on above: Order Comment: N Performed By: #### M 100.0605, M600.5000, L7000.0750, M100.637, L7000.0700, M7400.3302, M100.6796 #### [facility] [address] [place], [address] TJSDK-8-VEOM 0.7 g/dL Normal 0.4-1.0 [facility] Comment on above: Order Comment: N Performed By: #### M 100.0605, M600.5000, L7000.0750, M100.637, L7000.0700, M7400.3302, M100.6796 #### [facility] [address] [place], [address] BETA GLOBULIN 1.2 g/dL Normal 0.7-1.3 [facility] Comment on above: Order Comment: N Performed By: #### M 100.0605, M600.5000, L7000.0750, M100.637, L7000.0700, M7400.3302, M100.6796 #### [facility] [address] [place], [address] GAMMA GLOBULIN 0.8 g/dL Normal 0.4-1.8 [facility] Comment on above: Order Comment: N Performed By: #### M 100.0605, M600.5000, L7000.0750, M100.637, L7000.0700, M7400.3302, M100.6796 #### [facility] [address] [place], [address] Globulin (S) [Mass/Vol] 3.0 g/dL Normal 2.2-3.9 [facility] Comment on above: Order Comment: N Performed By: #### M 100.0605, M600.5000, L7000.0750, M100.637, L7000.0700, M7400.3302, M100.6796 #### [facility] [address] [place], [address] CALVIN RESULT,S Comment Normal . [facility] Comment on above: Order Comment: N Result Comment: No m onoclonality detected. Performed By: #### M 100.0605, M600.5000, L7000.0750, M100.637, L7000.0700, M7400.3302, M100.6796 #### [facility] [address] [place], [address] IMMUNOGLOB A QN 287 mg/dL Normal 87-352 [facility] Comment on above: Order Comment: N Performed By: #### M 100.0605, M600.5000, L7000.0750, M100.637, L7000.0700, M7400.3302, M100.6796 #### [facility] [address] [place], [address] IMMUNOGLOB M QN 47 mg/dL Normal 26-217 [facility] Comment on above: Order Comment: N Performed By: #### M 100.0605, M600.5000, L7000.0750, M100.637, L7000.0700, M7400.3302, M100.6796 #### [facility] [address] [place], [address] M-Rafael Not Observed Normal Not Observed [facility] Comment on above: Order Comment: N Performed By: #### M 100.0605, M600.5000, L7000.0750, M100.637, L7000.0700, M7400.3302, M100.6796 #### [facility] [address] [place], [address] NOTE: Comment Normal . [facility] Comment on above: Order Comment: N Result Comment: Prot ein electrophoresis scan will follow via computer, mail, or cert pharmacy tech delivery. Performed By: #### M 100.0605, M600.5000, L7000.0750, M100.637, L7000.0700, M7400.3302, M100.6796 #### [facility] [address] [place], [address] Protein [Mass/Vol] 7.0 g/dL Normal 6.0-8.5 [facility] Comment on above: Order Comment: N Performed By: #### M 100.0605, M600.5000, L7000.0750, M100.637, L7000.0700, M7400.3302, M100.6796 #### [facility] [address] [place], [address] IgG Subclasseson 12-30-2023 IgG, SUBCLASS 1 532 mg/dL Normal 248-810 [facility] Comment on above: Order Comment: N Performed By: #### M 100.0605, M600.5000, L7000.0750, M100.637, L7000.0700, M7400.3302, M100.6796 #### [facility] [address] [place], [address] IgG, SUBCLASS 2 304 mg/dL Normal 130-555 [facility] Comment on above: Order Comment: N Performed By: #### M 100.0605, M600.5000, L7000.0750, M100.637, L7000.0700, M7400.3302, M100.6796 #### [facility] [address] [facility] [place], [address] IgG, SUBCLASS 3 27 mg/dL Normal 15-102 [facility] Comment on above: Order Comment: N Performed By: #### M 100.0605, M600.5000, L7000.0750, M100.637, L7000.0700, M7400.3302, M100.6796 #### [facility] [address], [address] IgG, SUBCLASS 4 10 mg/dL Normal 2-96 [facility] Comment on above: Order Comment: N Result Comment: Perf ormed at: [address] [id number] Architecture Analyst: Brennan Fulton PhD, Phone: [phone] Performed at: [facility] [address] [id number] Architecture Analyst: Yevgeniy Causey MD, Phone: [phone] Performed By: #### M 100.0605, M600.5000, L7000.0750, M100.637, L7000.0700, M7400.3302, M100.6796 #### [facility] [address] [place], [place], [id number] IGG,QUANT 848 mg/dL Normal 586-1602 [facility] Comment on above: Order Comment: N Performed By: #### M 100.0605, M600.5000, L7000.0750, M100.637, L7000.0700, M7400.3302, M100.6796 #### [facility] [address] [place], [address] L2100.0000on 12-30-2023 ACCA 10 units Normal 0-90 [facility] Comment on above: Order Comment: N Result Comment: Nega tive: <80 Equivocal: 80-90 Positive: >90 Performed By: #### L 503.6550, L501.9520, L300.3900, L506.0400, L3000.0375, L2100.0000, L501.6710, L3410.2400, L5500.0550, L3400.8000, L504.2610, L501.5000, L101.9900, L501.02348, L503.6150, L100.9950, L503.6075, L3100.3425, L100.0100, L3200.0500 ####[facility] [address] [place], [place], [id number] ALCA 13 units Normal 0-60 [facility] Comment on above: Order Comment: N Result Comment: Nega tive:<55 Equivocal: 55-60 Positive: >60 Performed By: #### L 503.6550, L501.9520, L300.3900, L506.0400, L3000.0375, L2100.0000, L501.6710, L3410.2400, L5500.0550, L3400.8000, L504.2610, L501.5000, L101.9900, L501.74102, L503.6150, L100.9950, L503.6075, L3100.3425, L100.0100, L3200.0500 ####[facility] [address] [place], [place], [id number] AMCA 9 units Normal 0-100 [facility] Comment on above: Order Comment: N Result Comment: Nega tive: <90 Equivocal: 90-100 Positive: >100 This test was developed and its performance characteristics determined by [facility]. It has not been cleared or approved by the Food and Drug Administration. The FDA has determined that such clearance or approval is not necessary. Performed By: #### L 503.6550, L501.9520, L300.3900, L506.0400, L3000.0375, L2100.0000, L501.6710, L3410.2400, L5500.0550, L3400.8000, L504.2610, L501.5000, L101.9900, L501.85837, L503.6150, L100.9950, L503.6075, L3100.3425, L100.0100, L3200.0500 ####[facility] [address] [place], [place], [phone] Atypical pANCA Negative Normal Negative [facility] Comment on above: Order Comment: N Performed By: #### L 503.6550, L501.9520, L300.3900, L506.0400, L3000.0375, L2100.0000, L501.6710, L3410.2400, L5500.0550, L3400.8000, L504.2610, L501.5000, L101.9900, L501.78688, L503.6150, L100.9950, L503.6075, L3100.3425, L100.0100, L3200.0500 ####[facility] [address] [place], [place], [phone] COMMENT Comment Normal . [facility] Comment on above: Order Comment: N Result Comment: Abril gage is not suggestive of Inflammatory Bowel Disease Performed By: #### L 503.6550, L501.9520, L300.3900, L506.0400, L3000.0375, L2100.0000, L501.6710, L3410.2400, L5500.0550, L3400.8000, L504.2610, L501.5000, L101.9900, L501.52794, L503.6150, L100.9950, L503.6075, L3100.3425, L100.0100, L3200.0500 ####[facility] [address] [place], [address] Result Comment: Not infected with HCV unless early or acute infection is suspected (which may be delayed in an immunocompromised individual), or other evidence exists to indicate HCV infection. Bull 26 units Normal 0-50 [facility] Comment on above: Order Comment: N Result Comment: Nega tive: <45 Equivocal: 45-50 Positive: >50 Performed By: #### L 503.6550, L501.9520, L300.3900, L506.0400, L3000.0375, L2100.0000, L501.6710, L3410.2400, L5500.0550, L3400.8000, L504.2610, L501.5000, L101.9900, L501.10278, L503.6150, L100.9950, L503.6075, L3100.3425, L100.0100, L3200.0500 ####[facility] [address] [place], [address] Quantiferon TB-Gold+on 12-29 QFT MITOGEN DIXIE > 10.00 Normal . [facility] Comment on above: Order Comment: N Performed By: #### M 100.0605, M600.5000, L7000.0750, M100.637, L7000.0700, M7400.3302, M100.6796 #### [facility] [address] [place], [address] QFT NIL VALUE 0.05 IU/mL Normal . [facility] Comment on above: Order Comment: N Performed By: #### M 100.0605, M600.5000, L7000.0750, M100.637, L7000.0700, M7400.3302, M100.6796 #### [facility] [address] [place], [address] QFT TB GOLD+ Comment Normal . [facility] Comment on above: Order Comment: N Result Comment: Toni tiFERON-TB Gold Plus is a qualitative indirect test for M tuberculosis infection (including disease) and is intended for use in conjunction with risk assessment, radiography, and other medical and diagnostic evaluations. The QuantiFERON-TB Gold Plus result is determined by subtracting the Nil value from either TB antigen (Ag) value. The Mitogen tube serves as a control for the test. Performed By: #### M 100.0605, M600.5000, L7000.0750, M100.637, L7000.0700, M7400.3302, M100.6796 #### [facility] [address] [place], [address] QFT TB POS CRIT Negative Normal Negative [facility] Comment on above: Order Comment: N Result Comment: No r esponse to M tuberculosis antigens detected. Infection with M tuberculosis is unlikely, but high risk individuals should be considered for additional testing (ATS/IDSA/CDC Clinical Practice Guidelines, 2017). The reference range is an Antigen minus Nil result of <0.35 IU/mL. The specimen received for QuantiFERON testing was incubated by the ordering institution. Specific procedures outlined in our Directory of Services and in the package insert for the QuantiFERON Gold (In Tube) test must be followed to enable for proper stimulation of cells for the production of interferon gamma. Chemiluminescence immunoassay methodology Performed By: #### M 100.0605, M600.5000, L7000.0750, M100.637, L7000.0700, M7400.3302, M100.6796 #### [facility] [address] [place], [address] QFT TB1+ AG DIXIE 0.06 IU/mL Normal . [facility] Comment on above: Order Comment: N Performed By: #### M 100.0605, M600.5000, L7000.0750, M100.637, L7000.0700, M7400.3302, M100.6796 #### [facility] [address] [place], [address] QFT TB2+ AG DIXIE 0.06 IU/mL Normal . [facility] Comment on above: Order Comment: N Performed By: #### M 100.0605, M600.5000, L7000.0750, M100.637, L7000.0700, M7400.3302, M100.6796 #### [facility] [address] [facility] [address] [place], [address] ENTERIC PATHOGEN PANEL STOOL on 12-26-2023 EP PANEL Not detected for Campylobacter group, Salmonella species, Shigella species, Vibrio Group, Yersinia enterocolitica, EHEC (Shiga Toxin 1, Shiga Toxin 2), Norovirus Gl/Gll, and Rotavirus A. Other common stool pathogens are not detected on this panel include: Aeromonas/Plesiomonas or parasites. Order testing for these organisms separately if suspected. This is an amplified DNA test which makes it both specific and sensitive. GI pathogens Pnl Stl YUNG+probe Normal Reference Range = Not Detected GI pathogens Pnl Stl YUNG+probe Nucleic acid amplification test method CAMPYLOBACTER Not Detected Norovirus Not Detected Rotavirus Not Detected Salmonella Not Detected Shiga Toxin Not Detected Shigella sp. Not Detected VIBRIO Not Detected Yersinia Not Detected Normal [facility] Comment on above: Performed By: #### M 100.0605, M600.5000, L7000.0750, M100.637, L7000.0700, M7400.3302, M100.6796 #### [facility] [address] [place], [place], [phone] Absolute lymphocyte countOrd ered By: Ric Nguyễn on 12-25-2023 Lymphocytes Auto (Unsp spec) [#/Vol] 1.49 10*3/uL 0.83-4.51 [facility] Automated lymphocyte count a s percentage of total leukocytesOrdered By: Ric Nguyễn on 12-25-2023 Lymphocytes/100 WBC Auto (Unsp spec) 26.8 % 19-41 [facility] Basophil percentageOrdered B y: Ric Nguyễn on 12-25-2023 Basophils/100 WBC (Bld) 0.5 % 0-1 [facility] Eosinophils/100 WBC (Bld) 2.0 % 0-5 [facility] Hemoglobin (Bld) [Mass/Vol] 16.4 g/dL 12.0-15.0 [facility] LDH [Catalytic activity/Vol] 221 U/L 84-246 [facility] Monocytes/100 WBC (Bld) 6.8 % 0-10 [facility] Neutrophils (Bld) [#/Vol] 3.5 10*3/uL 2.0-7.7 [facility] Neutrophils/100 WBC (Bld) 63.5 % 47-70 [facility] Triglyceride [Mass/Vol] 329 mg/dL <199 [facility] Comment on above: The drugs N-Acetylcy steine and Metamizole may falsely depress this assay.Serum Triglycerides Reference Interval Normal <150 mg/dL Borderline high 150 - 199 mg/dL High 200 - 499 mg/dL Very High > or = 500 mg/dL WBC (Bld) [#/Vol] 5.6 10*3/uL 4.4-11.0 [facility] CBC W/Diff, Automatedon 12-15 Absolute Lymph 1.49 X10 3/uL Normal 0.83-4.51 [facility] Comment on above: Performed By: #### L 503.6550, L501.9520, L300.3900, L506.0400, L3000.0375, L2100.0000, L501.6710, L3410.2400, L5500.0550, L3400.8000, L504.2610, L501.5000, L101.9900, L501.23284, L503.6150, L100.9950, L503.6075, L3100.3425, L100.0100, L3200.0500 ####[facility] [address] [place], [place], [phone] Absolute Neut 3.5 X10 3/uL Normal 2.0-7.7 [facility] Comment on above: Performed By: #### L 503.6550, L501.9520, L300.3900, L506.0400, L3000.0375, L2100.0000, L501.6710, L3410.2400, L5500.0550, L3400.8000, L504.2610, L501.5000, L101.9900, L501.38517, L503.6150, L100.9950, L503.6075, L3100.3425, L100.0100, L3200.0500 ####[facility] [address] [place], [place], [phone]) Basophils/100 WBC (Bld) 0.5 % Normal 0-1 [facility] Comment on above: Performed By: #### L 503.6550, L501.9520, L300.3900, L506.0400, L3000.0375, L2100.0000, L501.6710, L3410.2400, L5500.0550, L3400.8000, L504.2610, L501.5000, L101.9900, L501.54322, L503.6150, L100.9950, L503.6075, L3100.3425, L100.0100, L3200.0500 ####[facility] [address] [place], [address] Eosinophils/100 WBC (Bld) 2.0 % Normal 0-5 [facility] Comment on above: Performed By: #### L 503.6550, L501.9520, L300.3900, L506.0400, L3000.0375, L2100.0000, L501.6710, L3410.2400, L5500.0550, L3400.8000, L504.2610, L501.5000, L101.9900, L501.17461, L503.6150, L100.9950, L503.6075, L3100.3425, L100.0100, L3200.0500 ####[facility] [address] [place], [address] Erythrocyte distribution width (RBC) [Ratio] 13.4 % Normal 11.6-14.6 [facility] Comment on above: Performed By: #### L 503.6550, L501.9520, L300.3900, L506.0400, L3000.0375, L2100.0000, L501.6710, L3410.2400, L5500.0550, L3400.8000, L504.2610, L501.5000, L101.9900, L501.93428, L503.6150, L100.9950, L503.6075, L3100.3425, L100.0100, L3200.0500 ####[facility] [address] [place], [address] Hematocrit (Bld) [Volume fraction] 45.9 % Normal 37-47 [facility] Comment on above: Performed By: #### L 503.6550, L501.9520, L300.3900, L506.0400, L3000.0375, L2100.0000, L501.6710, L3410.2400, L5500.0550, L3400.8000, L504.2610, L501.5000, L101.9900, L501.91695, L503.6150, L100.9950, L503.6075, L3100.3425, L100.0100, L3200.0500 ####[facility] [address] [place], [address] Hemoglobin (Bld) [Mass/Vol] 16.4 g/dL High 12.0-15.0 [facility] Comment on above: Performed By: #### L 503.6550, L501.9520, L300.3900, L506.0400, L3000.0375, L2100.0000, L501.6710, L3410.2400, L5500.0550, L3400.8000, L504.2610, L501.5000, L101.9900, L501.86085, L503.6150, L100.9950, L503.6075, L3100.3425, L100.0100, L3200.0500 ####[facility] [address] [facility] [place], [place], [phone] IG% 0.400 Normal 0.0-0.9 [facility] Comment on above: Result Comment: IG% - Immature Granulocytes (promyelocytes, myelocytes and metamyelocytes) > 1% indicates that a LEFT SHIFT is Present. Performed By: #### L 503.6550, L501.9520, L300.3900, L506.0400, L3000.0375, L2100.0000, L501.6710, L3410.2400, L5500.0550, L3400.8000, L504.2610, L501.5000, L101.9900, L501.93586, L503.6150, L100.9950, L503.6075, L3100.3425, L100.0100, L3200.0500 ####[facility] [address] [facility] [place], [place], [phone] Lymphocytes/100 WBC (Bld) 26.8 % Normal 19-41 [facility] Comment on above: Performed By: #### L 503.6550, L501.9520, L300.3900, L506.0400, L3000.0375, L2100.0000, L501.6710, L3410.2400, L5500.0550, L3400.8000, L504.2610, L501.5000, L101.9900, L501.18704, L503.6150, L100.9950, L503.6075, L3100.3425, L100.0100, L3200.0500 ####[facility] [address] [facility] [place], [address] MCH (RBC) [Entitic mass] 30.9 pg Normal 27.0-32.0 [facility] Comment on above: Performed By: #### L 503.6550, L501.9520, L300.3900, L506.0400, L3000.0375, L2100.0000, L501.6710, L3410.2400, L5500.0550, L3400.8000, L504.2610, L501.5000, L101.9900, L501.95618, L503.6150, L100.9950, L503.6075, L3100.3425, L100.0100, L3200.0500 ####[facility] [address] [facility]. [place], [place], [id number] MCHC (RBC) [Mass/Vol] 35.7 g/dL Normal 32-36 [facility] Comment on above: Performed By: #### L 503.6550, L501.9520, L300.3900, L506.0400, L3000.0375, L2100.0000, L501.6710, L3410.2400, L5500.0550, L3400.8000, L504.2610, L501.5000, L101.9900, L501.86234, L503.6150, L100.9950, L503.6075, L3100.3425, L100.0100, L3200.0500 ####[facility] [address] [place], [place], [phone] MCV (RBC) [Entitic vol] 86.4 fL Normal 81-99 [facility] Comment on above: Performed By: #### L 503.6550, L501.9520, L300.3900, L506.0400, L3000.0375, L2100.0000, L501.6710, L3410.2400, L5500.0550, L3400.8000, L504.2610, L501.5000, L101.9900, L501.51730, L503.6150, L100.9950, L503.6075, L3100.3425, L100.0100, L3200.0500 ####[facility] [address] [place], [address] Monocytes/100 WBC (Bld) 6.8 % Normal 0-10 [facility] Comment on above: Performed By: #### L 503.6550, L501.9520, L300.3900, L506.0400, L3000.0375, L2100.0000, L501.6710, L3410.2400, L5500.0550, L3400.8000, L504.2610, L501.5000, L101.9900, L501.09516, L503.6150, L100.9950, L503.6075, L3100.3425, L100.0100, L3200.0500 ####[facility] [address] [facility] [address] [place], [address] Neutrophils/100 WBC (Bld) 63.5 % Normal 47-70 [facility] Comment on above: Performed By: #### L 503.6550, L501.9520, L300.3900, L506.0400, L3000.0375, L2100.0000, L501.6710, L3410.2400, L5500.0550, L3400.8000, L504.2610, L501.5000, L101.9900, L501.48075, L503.6150, L100.9950, L503.6075, L3100.3425, L100.0100, L3200.0500 ####[facility] [address] [facility] [place], [address] Nucleated RBC (Bld) [#/Vol] 0 10*3/uL Normal 0-5 [facility] Comment on above: Performed By: #### L 503.6550, L501.9520, L300.3900, L506.0400, L3000.0375, L2100.0000, L501.6710, L3410.2400, L5500.0550, L3400.8000, L504.2610, L501.5000, L101.9900, L501.03529, L503.6150, L100.9950, L503.6075, L3100.3425, L100.0100, L3200.0500 ####[facility] [address] [place], [address] Platelet mean volume (Bld) [Entitic vol] 11.1 fL Normal 6.2-12.0 [facility] Comment on above: Performed By: #### L 503.6550, L501.9520, L300.3900, L506.0400, L3000.0375, L2100.0000, L501.6710, L3410.2400, L5500.0550, L3400.8000, L504.2610, L501.5000, L101.9900, L501.43609, L503.6150, L100.9950, L503.6075, L3100.3425, L100.0100, L3200.0500 ####[facility] [address] [place], [place], [phone] Platelets (Bld) [#/Vol] 166 10*3/uL Normal 150-450 [facility] Comment on above: Performed By: #### L 503.6550, L501.9520, L300.3900, L506.0400, L3000.0375, L2100.0000, L501.6710, L3410.2400, L5500.0550, L3400.8000, L504.2610, L501.5000, L101.9900, L501.93797, L503.6150, L100.9950, L503.6075, L3100.3425, L100.0100, L3200.0500 ####[facility] [address] [place], [address] RBC (Bld) [#/Vol] 5.31 10*6/uL Normal 4.2-5.4 [facility] Comment on above: Performed By: #### L 503.6550, L501.9520, L300.3900, L506.0400, L3000.0375, L2100.0000, L501.6710, L3410.2400, L5500.0550, L3400.8000, L504.2610, L501.5000, L101.9900, L501.44807, L503.6150, L100.9950, L503.6075, L3100.3425, L100.0100, L3200.0500 ####[facility] [address] [place], [place], [phone] RDW SD 41.4 fl Normal 35.1-43.9 [facility] Comment on above: Performed By: #### L 503.6550, L501.9520, L300.3900, L506.0400, L3000.0375, L2100.0000, L501.6710, L3410.2400, L5500.0550, L3400.8000, L504.2610, L501.5000, L101.9900, L501.79485, L503.6150, L100.9950, L503.6075, L3100.3425, L100.0100, L3200.0500 ####[facility] [address] [place], [place], [address] WBC (Bld) [#/Vol] 5.6 10*3/uL Normal 4.4-11.0 [facility] Comment on above: Performed By: #### L 503.6550, L501.9520, L300.3900, L506.0400, L3000.0375, L2100.0000, L501.6710, L3410.2400, L5500.0550, L3400.8000, L504.2610, L501.5000, L101.9900, L501.31849, L503.6150, L100.9950, L503.6075, L3100.3425, L100.0100, L3200.0500 ####[facility] [address] [place], [place], [phone] CDIFF (PCR)on 12-25-2023 CDIFF A positive C. difficile molecular test does not differentiate between an active C. difficile infection and C. difficile colonization. Use clinical judgement and paired toxin/antigen testing to identify true infection and need for treatment. C diff DNA Spec Ql YUNG+probe Reference Range: Negative Collplant GeneXpert: polymerase chain reaction (PCR) 027 027 NAP1-B1 Presumptive Negative *for epidemiolologic???use C. Diff PCR Negative- No toxigenic C. Diff Detected Normal [facility] Comment on above: Performed By: #### M 100.0605, M600.5000, L7000.0750, M100.637, L7000.0700, M7400.3302, M100.6796 #### [facility] Laboratory [address] [place], [address] CRPon 12-25-2023 C-REACTIVE PROT < 2.90 Normal 0.0-3.0 [facility] Comment on above: Order Comment: 1 Result Comment: C-Re active Protein (CRP) provides useful information for the diagnosis, therapy and monitoring of inflammatory processes and associated diseases. For the evaluation of Relative Risk for Cardiovascular Disease, a High Sensitivity CRP (HSCRP) should be ordered. Performed By: #### L 503.6550, L501.9520, L300.3900, L506.0400, L3000.0375, L2100.0000, L501.6710, L3410.2400, L5500.0550, L3400.8000, L504.2610, L501.5000, L101.9900, L501.44219, L503.6150, L100.9950, L503.6075, L3100.3425, L100.0100, L3200.0500 ####[facility] [address] [place], [place], [phone] Clostridioides difficile nuc leic acid assay by PCROrdered By: Ric Nguyễn on 12-25-2023 C. difficile DNA YUNG+probe Ql (Unsp spec) [facility] Determination of erythrocyte mean corpuscular volume (MCV)Ordered By: Ric Nguyễn on 12-25-2023 MCV (RBC) [Entitic vol] 86.4 fL 81-99 [facility] Erythrocyte Sed Rateon 12-24 SED RATE 1 mm/hr Normal 0-30 [facility] Comment on above: Performed By: #### L 503.6550, L501.9520, L300.3900, L506.0400, L3000.0375, L2100.0000, L501.6710, L3410.2400, L5500.0550, L3400.8000, L504.2610, L501.5000, L101.9900, L501.53003, L503.6150, L100.9950, L503.6075, L3100.3425, L100.0100, L3200.0500 ####[facility] [address] [place], [address] Erythrocyte distribution wid th ratioOrdered By: Ric Nguyễn on 12-25-2023 Erythrocyte distribution width (RBC) [Ratio] 13.4 % 11.6-14.6 [facility] Erythrocyte distribution wid th standard deviationOrdered By: Rictaina Nguyễn on 12-25-2023 Erythrocyte distribution width (RBC) [Entitic vol] 41.4 fL 35.1-43.9 [facility] Erythrocyte sedimentation ra teOrdered By: Ric Nguyễn on 12-25-2023 ESR (Bld) [Velocity] 1 mm/h 0-30 [facility] Ferritinon 12-25-2023 Ferritin [Mass/Vol] 386 ng/mL High 8-252 [facility] Comment on above: Order Comment: 1 Performed By: #### L 503.6550, L501.9520, L300.3900, L506.0400, L3000.0375, L2100.0000, L501.6710, L3410.2400, L5500.0550, L3400.8000, L504.2610, L501.5000, L101.9900, L501.39754, L503.6150, L100.9950, L503.6075, L3100.3425, L100.0100, L3200.0500 ####[facility] [address] [place], [place], [phone] Free T3on 12-25-2023 Free T3 [Mass/Vol] 2.8 pg/mL Normal 2.18-3.98 [facility] Comment on above: Order Comment: 1 Performed By: #### L 503.6550, L501.9520, L300.3900, L506.0400, L3000.0375, L2100.0000, L501.6710, L3410.2400, L5500.0550, L3400.8000, L504.2610, L501.5000, L101.9900, L501.38727, L503.6150, L100.9950, L503.6075, L3100.3425, L100.0100, L3200.0500 ####[facility] [address] [place], [place], [phone] Hematocrit Auto (Bld) [Volum e fraction]Ordered By: Ric Gopi on 12-25-2023 Hematocrit (Bld) [Volume fraction] 45.9 % 37-47 [facility] Hemoglobin in reticulocytes (mass per reticulocyte)Ordered By: Rictaina Nguyễn on 12-25-2023 Hemoglobin (Reticulocytes) [Entitic mass] 33.8 pg 30-35 [facility] Immature granulocytes/100 WB C Auto (Bld)Ordered By: Ric Gopi on 12-25-2023 Immature granulocytes/100 WBC (Bld) 0.400 % 0.0-0.9 [facility] Comment on above: IG% - Immature Granu locytes (promyelocytes, myelocytes and metamyelocytes) > 1% indicates that a LEFT SHIFT is Present. Ironon 12-25-2023 Iron [Mass/Vol] 141 ug/dL Normal 50-170 [facility] Comment on above: Order Comment: 1 Performed By: #### L 503.6550, L501.9520, L300.3900, L506.0400, L3000.0375, L2100.0000, L501.6710, L3410.2400, L5500.0550, L3400.8000, L504.2610, L501.5000, L101.9900, L501.97247, L503.6150, L100.9950, L503.6075, L3100.3425, L100.0100, L3200.0500 ####[facility] [address] [place], [place], [phone] Iron Binding Capacity,Totalo n 12-25-2023 TIBC 351 ug/dL Normal 250-450 [facility] Comment on above: Order Comment: 1 Performed By: #### L 503.6550, L501.9520, L300.3900, L506.0400, L3000.0375, L2100.0000, L501.6710, L3410.2400, L5500.0550, L3400.8000, L504.2610, L501.5000, L101.9900, L501.23508, L503.6150, L100.9950, L503.6075, L3100.3425, L100.0100, L3200.0500 ####[facility] [address] [facility] [facility] [place], [place], [phone] Iron measurement (mass/mass) Ordered By: Ric Nguyễn on 12-25-2023 Iron (Unsp spec) [Mass/Mass] 141 ug/dL 50-170 [facility] LDHon 12-25-2023 LDH 221 U/L Normal 84-246 [facility] Comment on above: Order Comment: 1 Performed By: #### L 503.6550, L501.9520, L300.3900, L506.0400, L3000.0375, L2100.0000, L501.6710, L3410.2400, L5500.0550, L3400.8000, L504.2610, L501.5000, L101.9900, L501.92759, L503.6150, L100.9950, L503.6075, L3100.3425, L100.0100, L3200.0500 ####[facility] [address] [place], [address] Laboratory - Chemistry and C hemistry - challengeOrdered By: Ric Nguyễn on 12-25-2023 Ferritin [Mass/Vol] 386 ng/mL 8-252 [facility] Laboratory - CoagulationOrde red By: Ric Nguyễn on 12-25-2023 INR Coag (Bld) [Relative time] 1.0 {INR} [facility] PT Coag (PPP) [Time] 12.8 s 11.7-14.9 [facility] Laboratory - Hematology and Cell countsOrdered By: Ric Nguyễn on 12-25-2023 MCH (RBC) [Entitic mass] 30.9 pg 27.0-32.0 [facility] MCHC (RBC) [Mass/Vol] 35.7 g/dL 32-36 [facility] Nucleated RBC/100 WBC (Bld) [Ratio] 0 % 0-5 [facility] Platelet mean volume (Bld) [Entitic vol] 11.1 fL 6.2-12.0 [facility] Platelets (Bld) [#/Vol] 166 10*3/uL 150-450 [facility] No Panel InformationOrdered By: Ric Nguyễn on 12-25-2023 C-Reactive Protein Extended Range < 2.90 mg/L 0.0-3.0 [facility] Comment on above: C-Reactive Protein ( CRP) provides useful information for thediagnosis, therapy and monitoring of inflammatory processesand associated diseases. For the evaluation of Relative Riskfor Cardiovascular Disease, a High Sensitivity CRP (HSCRP)should be ordered. Free Triiodothyronine (T3) pg/dL 2.8 pg/mL 2.18-3.98 [facility] Immature Reticulocyte Fraction 10.10 % 3.00-15.90 [facility] Total Iron Binding Capacity 351 ug/dL 250-450 [facility] Prothrombin Time w/INRon INR Coag (PPP) [Relative time] 1.0 {INR} Normal [facility] Comment on above: Performed By: #### L 503.6550, L501.9520, L300.3900, L506.0400, L3000.0375, L2100.0000, L501.6710, L3410.2400, L5500.0550, L3400.8000, L504.2610, L501.5000, L101.9900, L501.49750, L503.6150, L100.9950, L503.6075, L3100.3425, L100.0100, L3200.0500 ####[facility] [address] [place], [place], [address] PT Coag (PPP) [Time] 12.8 s Normal 11.7-14.9 [facility] Comment on above: Performed By: #### L 503.6550, L501.9520, L300.3900, L506.0400, L3000.0375, L2100.0000, L501.6710, L3410.2400, L5500.0550, L3400.8000, L504.2610, L501.5000, L101.9900, L501.91821, L503.6150, L100.9950, L503.6075, L3100.3425, L100.0100, L3200.0500 ####[facility] [address] [place], [place], [address] RBC Auto (Bld) [#/Vol]Ordere d By: Ric Nguyễn on 12-25-2023 RBC (Bld) [#/Vol] 5.31 10*6/uL 4.2-5.4 [facility] Retic Panelon 12-25-2023 IM RET FRACTION 10.10 Normal 3.00-15.90 [facility] Comment on above: Performed By: #### L 503.6550, L501.9520, L300.3900, L506.0400, L3000.0375, L2100.0000, L501.6710, L3410.2400, L5500.0550, L3400.8000, L504.2610, L501.5000, L101.9900, L501.93756, L503.6150, L100.9950, L503.6075, L3100.3425, L100.0100, L3200.0500 ####[facility] [address] [place], [place], [phone] RET-HE 33.8 pg Normal 30-35 [facility] Comment on above: Performed By: #### L 503.6550, L501.9520, L300.3900, L506.0400, L3000.0375, L2100.0000, L501.6710, L3410.2400, L5500.0550, L3400.8000, L504.2610, L501.5000, L101.9900, L501.09704, L503.6150, L100.9950, L503.6075, L3100.3425, L100.0100, L3200.0500 ####[facility] [address] [place], [address] Retic Count 4.18 High 0.5-1.5 [facility] Comment on above: Performed By: #### L 503.6550, L501.9520, L300.3900, L506.0400, L3000.0375, L2100.0000, L501.6710, L3410.2400, L5500.0550, L3400.8000, L504.2610, L501.5000, L101.9900, L501.63143, L503.6150, L100.9950, L503.6075, L3100.3425, L100.0100, L3200.0500 ####[facility] [address] [facility] [place], [address] Reticulocytes Auto (Bld) [#/ Vol]Ordered By: Ric Nguyễn on 12-25-2023 Reticulocytes/100 RBC (Bld) 4.18 % 0.5-1.5 [facility] Serum or plasma thyroid stim ulating hormone (TSH) measurement (units/volume)Ordered By: Ric Nguyễn on 12-25-2023 TSH Qn 2.21 uIU/mL 0.358-3.74 [facility] Stool Lactoferrin/WBCon 12-15 WBCST Normal Reference Ran ge = Negative Fecal WBC Lactoferrin Negative: No Fecal WBC Lactoferrin present Normal [facility] Comment on above: Performed By: #### M 100.0605, M600.5000, L7000.0750, M100.637, L7000.0700, M7400.3302, M100.6796 #### [facility] Laboratory [address] [place], [address] Stool enteric pathogen panel by probe and target amplification methodOrdered By: Ric Nguyễn on 12-25-2023 Gastrointestinal pathogens panel YUNG+probe ([facility]) [facility] Stool lactoferrin detection by immunoassayOrdered By: Ric Nguyễn on 12-25-2023 Lactoferrin IA Ql ([facility]) [facility] T4 Free Directon 12-25-2023 T4 FREE DIRECT 1.20 ng/dL Normal 0.76-1.46 [facility] Comment on above: Order Comment: 1 Performed By: #### L 503.6550, L501.9520, L300.3900, L506.0400, L3000.0375, L2100.0000, L501.6710, L3410.2400, L5500.0550, L3400.8000, L504.2610, L501.5000, L101.9900, L501.39402, L503.6150, L100.9950, L503.6075, L3100.3425, L100.0100, L3200.0500 ####[facility] [address] [place], [address] Thin prep Papanicolaou smear with manual screeningOrdered By: Ric Nguyễn on 12-25-2023 Thin prep Papanicolaou smear with manual screening 1.20 ng/dL 0.76-1.46 [facility] Thyroid Stim Hormone (TSH)on 12-25-2023 TSH 2.21 uIU/mL Normal 0.358-3.74 [facility] Comment on above: Order Comment: 1 Performed By: #### L 503.6550, L501.9520, L300.3900, L506.0400, L3000.0375, L2100.0000, L501.6710, L3410.2400, L5500.0550, L3400.8000, L504.2610, L501.5000, L101.9900, L501.05618, L503.6150, L100.9950, L503.6075, L3100.3425, L100.0100, L3200.0500 ####[facility] [address] [place], [place], [phone] Triglycerideson 12-25-2023 Triglyceride [Mass/Vol] 329 mg/dL High [facility] Comment on above: Order Comment: 1 Result Comment: The drugs N-Acetylcysteine and Metamizole may falsely depress this assay. Serum Triglycerides Reference Interval Normal <150 mg/dL Borderline high 150 - 199 mg/dL High 200 - 499 mg/dL Very High > or = 500 mg/dL Performed By: #### L 503.6550, L501.9520, L300.3900, L506.0400, L3000.0375, L2100.0000, L501.6710, L3410.2400, L5500.0550, L3400.8000, L504.2610, L501.5000, L101.9900, L501.01074, L503.6150, L100.9950, L503.6075, L3100.3425, L100.0100, L3200.0500 ####[facility] [address] [facility] [address] [place], [place], [phone] Basic metabolic 1998 panelon 10-15-2023 Anion gap [Moles/Vol] 8 mmol/L 3 - 13 mmol/L [facility] Calcium [Mass/Vol] 9.6 mg/dL 8.4 - 10. 4 mg/dL [facility] Chloride [Moles/Vol] 97 mmol/L Low 98 - 10 7 mmol/L [facility] CO2 [Moles/Vol] 28 mmol/L 22 - 30 mmol/L [facility] Creatinine [Mass/Vol] 0.54 mg/dL 0.52 - 1.04 mg/dL [facility] GFR/1.73 sq M.predicted MDRD (S/P/Bld) [Vol rate/Area] - PINF [facility] Comment on above: Calculation based on the Chronic Kidney Disease Epidemiology Collaboration (CKD-EPI) equation refit without adjustment for race Glucose [Mass/Vol] 299 mg/dL High 70 - 100 mg/dL [facility] Interpretation and review of laboratory results Abnormal [facility] Potassium [Moles/Vol] 3.9 mmol/L 3.5 - 5.1 mmol/L [facility] Sodium [Moles/Vol] 133 mmol/L Low 135 - 145 mmol/L [facility] Urea nitrogen [Mass/Vol] 11 mg/dL 7 - 17 mg/dL [facility] TSHon 10-15-2023 TSH Qn 1.724 m[IU]/L [facility] h TSH Qnon 10-15-2023 Interpretation and review of laboratory results Normal [facility] Plasma renin measurement (en zymatic activity/volume)Ordered By: Josesito Mckeon on 08-28-2023 Renin (P) [Catalytic activity/Vol] < 0.167 ng/mL/hr 0.167-5.380 [facility] Thin prep Papanicolaou smear with manual screeningOrdered By: Josesito Mckeon on 08-28-2023 Thin prep Papanicolaou smear with manual screening 5.4 ng/dL 0.0-30.0 [facility] Comment on above: Performed at: - [address] [id number] Director: Yevgeniy Causey MD, Phone: [phone] Basophil percentageOrdered B y: Josesito Mckeon on 08-13-2023 Basophil percentage < 1.0 mg/dL 0.55-1.02 [facility] No Panel InformationOrdered By: Josesito Mckeon on 08-13-2023 Bedside Estimated GFR (eGFR) > 60.0000 mL/min >60 [facility] CNOVon 09-04-2022 CNOV Office Visit (UCWSTR ) PETER DAHL ([id number]) 1955 F Date Time Provider Department 09/04/22 12:30 PM SHIRA NELSON [facility] During your visit today, we recorded the following information about you: Temperature Pulse Respiration Blood pressure 97.1 degrees 70/minute 16/minute 152/90 Weight 106.6 kg Shira Nelson APRN.DIRECTOR OF OFFICIATING 09/04/2022 1:40 PM Signed This note was created using [employer]. Subjective Peter Dahl is a 67 year old female. 67 year old female with PMH sciatica, HTN, and DM presents for complaints of lower back pain. Acute onset one week ago Left lower back +radiation down into butt and left thigh Endorses history of same in past Has utilized Advil without much relief of symptoms. States that she has been moving. She has also been cleaning. Denies saddle anesthesia, unilateral weakness, or inability to ambulate Denies IV drug usage The history is provided by the patient. No language assistant was used. Back Pain This is a recurrent problem. The current episode started more than 1 week ago. The problem occurs constantly. The problem has not changed since onset.The pain is associated with twisting and lifting heavy objects. The pain is present in the lumbar spine. The quality of the pain is described as stabbing and aching. The pain radiates to the left thigh. The pain is at a severity of 8/10. The pain is moderate. The symptoms are aggravated by twisting and bending. Stiffness is present All day. Pertinent negatives include no chest pain, no fever, no numbness, no weight loss, no headaches, no abdominal pain, no abdominal swelling, no bowel incontinence, no perianal numbness, no bladder incontinence, no dysuria, no pelvic pain, no leg pain, no paresthesias, no paresis, no tingling and no weakness. She has tried NSAIDs for the symptoms. The treatment provided no relief. Risk factors include obesity, poor posture and a sedentary lifestyle. 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 cyclobenzaprine (FLEXERIL) 5 mg tablet Take 1 tablet by mouth twice daily as needed for up to 5 days. methylPREDNISolone (MEDROL, AIMEE,) 4 mg Dose-Pack Follow dosing instructions, take with food. carvedilol (COREG) 12.5 mg tablet Take 1 tablet by mouth twice daily. (Patient not taking: Reported on 09/04/2022) FAMILY HISTORY Problem Relation Age of Onset Cancer Father Lung Heart Mother Bypass Surgery Hypertension Sister Diabetes Sister Diabetes Mother COPD Mother Heart Brother Social History Tobacco Use Smoking status: Never Smokeless tobacco: Never Substance Use Topics Alcohol use: No Drug use: No Review of Systems Constitutional: Negative for activity change, appetite change, chills, fever and weight loss. Eyes: Negative for pain, discharge, redness and itching. Respiratory: Negative for apnea, choking and chest tightness. Cardiovascular: Negative for chest pain. Gastrointestinal: Negative for abdominal pain, bowel incontinence, diarrhea, nausea and vomiting. Genitourinary: Negative for bladder incontinence, dysuria and pelvic pain. Musculoskeletal: Positive for back pain. Skin: Negative for color change, pallor, rash and wound. Allergic/Immunologic: Negative for environmental allergies, food allergies and immunocompromised state. Neurological: Negative for dizziness, tingling, facial asymmetry, weakness, numbness, headaches and paresthesias. Hematological: Negative for adenopathy. Does not bruise/bleed easily. Psychiatric/Behavioral : Negative for agitation and behavioral problems. Objective BP 152/90 Pulse 70 Temp 36.2 ?C (97.1 ?F) Resp 16 Wt 106.6 kg (235 lb) SpO2 98% BMI 35.73 kg/m? Physical Exam Vitals and nursing note reviewed. Constitutional: General: She is not in acute distress. Appearance: Normal appearance. She is normal weight. She is not ill-appearing, toxic-appearing or diaphoretic. HENT: Head: Normocephalic and atraumatic. Right Ear: Ear canal and external ear normal. Left Ear: Ear canal and external ear normal. Nose: Nose normal. No congestion or rhinorrhea. Mouth/Throat: Mouth: Mucous membranes are moist. Pharynx: No oropharyngeal exudate or posterior oropharyngeal erythema. Eyes: General: Right eye: No discharge. Left eye: No discharge. Extraocular Movements: Extraocular movements intact. Conjunctiva/sclera: Conjunctivae normal. Pupils: Pupils are equal, round, and reactiv (more content not included)... Normal [facility] Absolute lymphocyte counton 11-27-2021 Lymphocytes Auto (Unsp spec) [#/Vol] 1.33 10*3/uL 0.83-4.51 [facility] Work Phone: Basophil percentageon 2021 Basophils/100 WBC (Bld) 0.3 % 0-1 [facility] Work Phone: Bilirubin [Mass/Vol] 1.20 mg/dL 0.20-1.00 [facility] Work Phone: Comment on above: For patients on eltr ombopag therapy, use of Dimension [place] TBIL is not recommended. Chloride [Moles/Vol] 98 mmol/L 98-107 [facility] Work Phone: Cholesterol [Mass/Vol] 207 mg/dL <200 [facility] Work Phone: Comment on above: <200 mg/dL Desirable 200-240 mg/dL Borderline >240 mg/dL High Risk Eosinophils/100 WBC (Bld) 2.2 % 0-5 [facility] Work Phone: Glucose [Mass/Vol] 225 mg/dL 74-106 [facility] Work Phone: Comment on above: Glucose result great er than or equal to 200 mg/dLsuggests DIABETES MELLITUS per A.D.A. criteria. Neutrophils (Bld) [#/Vol] 4.1 10*3/uL 2.0-7.7 [facility] Work Phone: Neutrophils/100 WBC (Bld) 67.6 % 47-70 [facility] Work Phone: Potassium [Moles/Vol] 3.5 mmol/L 3.5-5.1 [facility] Work Phone: Protein [Mass/Vol] 7.5 g/dL 6.4-8.2 [facility] Work Phone: Sodium [Moles/Vol] 135 mmol/L 136-145 [facility] Work Phone: Triglyceride [Mass/Vol] 298 mg/dL [facility] Work Phone: Comment on above: The drugs N-Acetylcy steine and Metamizole may falsely depress this assay.Serum Triglycerides Reference Interval Normal <150 mg/dL Borderline high 150 - 199 mg/dL High 200 - 499 mg/dL Very High > or = 500 mg/dL WBC (Bld) [#/Vol] 6.0 10*3/uL 4.4-11.0 [facility] Work Phone: Blood erythrocytes count (nu mber/volume)on 11-27-2021 RBC (Bld) [#/Vol] 4.85 10*6/uL 4.2-5.4 [facility] Work Phone: Blood hemoglobin measurement (mass/volume)on 11-27-2021 Hemoglobin (Bld) [Mass/Vol] 15.6 g/dL 12.0-15.0 [facility] Work Phone: Blood lymphocytes/100 leukoc yteson 11-27-2021 Lymphocytes/100 WBC (Bld) 22.1 % 19-41 [facility] Work Phone: Blood monocytes/100 leukocyt eson 11-27-2021 Monocytes/100 WBC (Bld) 7.5 % 0-10 [facility] Work Phone: Blood platelet mean volumeon 11-27-2021 Platelet mean volume (Bld) [Entitic vol] 11.3 fL 6.2-12.0 [facility] Work Phone: Determination of erythrocyte mean corpuscular volume (MCV)on 11-27-2021 MCV (RBC) [Entitic vol] 86.6 fL 81-99 [facility] Work Phone: Erythrocyte sedimentation ra katia 11-27-2021 ESR (Bld) [Velocity] 4 mm/h 0-30 [facility] Work Phone: Comment on above: Previous reported re sult: 5 mm/hrEdited by: GAGAN on 11/27/21:2329 AMENDED REPORT 11/27/212328 SED RATE previously reported as: 5 mm/hr Hematocrit Auto (Bld) [Volum e fraction]on 11-27-2021 Hematocrit (Bld) [Volume fraction] 42.0 % 37-47 [facility] Work Phone: Laboratory - Chemistry and C hemistry - challengeon 11-27-2021 ALP [Catalytic activity/Vol] 82 U/L 45-117 [facility] Work Phone: ALT [Catalytic activity/Vol] 69 U/L 13-56 [facility] Work Phone: CK [Catalytic activity/Vol] 47 U/L 26-192 [facility] Work Phone: CO2 [Moles/Vol] 33.0 mmol/L 21.0-32.0 [facility] Work Phone: Globulin (S) [Mass/Vol] 3.6 g/dL 2.2-4.2 [facility] Work Phone: Urea nitrogen/Creatinine [Mass ratio] 14.2 mg/mg 10-20 [facility] Work Phone: Laboratory - Hematology and Cell countson 11-27-2021 Erythrocyte distribution width (RBC) [Entitic vol] 41.3 fL 35.1-43.9 [facility] Work Phone: Erythrocyte distribution width (RBC) [Ratio] 13.2 % 11.6-14.6 [facility] Work Phone: Immature granulocytes/100 WBC (Bld) 0.300 % 0.0-0.9 [facility] Work Phone: Comment on above: IG% - Immature Granu locytes (promyelocytes, myelocytes and metamyelocytes) > 1% indicates that a LEFT SHIFT is Present. MCH (RBC) [Entitic mass] 32.2 pg 27.0-32.0 [facility] Work Phone: Nucleated RBC/100 WBC (Bld) [Ratio] 0 % 0-5 [facility] Work Phone: MCHC Auto (RBC) [Mass/Vol]on 11-27-2021 MCHC (RBC) [Mass/Vol] 37.1 g/dL 32-36 [facility] Work Phone: No Panel Informationon 11-27 Anti-Nuclear Antibody Screen Negative Negative [facility] Work Phone: Comment on above: Performed at: [place] [id number] Director: Brennan Fulton PhD, Phone: [phone] Estimated GFR (MDRD) Amer 108 mL/min >60 [facility] Work Phone: Comment on above: GFR Calc Estimated GFR (MDRD) Non-Af Amer 89 mL/min >60 [facility] Work Phone: Comment on above: Non- GFR Calc Thyroid Stimulating Hormone (TSH) 3.00 uIU/mL 0.358-3.74 [facility] Work Phone: Platelets bldon 11-27-2021 Platelets (Bld) [#/Vol] 158 10*3/uL 150-450 [facility] Work Phone: Serum or plasma C reactive p rotein measurement (mass/volume)on 11-27-2021 CRP [Mass/Vol] mg/L 0.0-3.0 [facility] Work Phone: Comment on above: C-Reactive Protein ( CRP) provides useful information for thediagnosis, therapy and monitoring of inflammatory processesand associated diseases. For the evaluation of Relative Riskfor Cardiovascular Disease, a High Sensitivity CRP (HSCRP)should be ordered. Serum or plasma albumin moi urement (mass/volume)on 11-27-2021 Albumin [Mass/Vol] 3.9 g/dL 3.2-5.0 [facility] Work Phone: Serum or plasma albumin/glob ulin mass ratioon 11-27-2021 Albumin/Globulin [Mass ratio] 1.1 {ratio} 0.9-2.4 [facility] Work Phone: Serum or plasma calcium moi urement (mass/volume)on 11-27-2021 Calcium [Mass/Vol] 9.3 mg/dL 8.5-10.1 [facility] Work Phone: Serum or plasma cholesterol in HDL measurement (mass/volume)on 11-27-2021 Cholesterol in HDL [Mass/Vol] 43 mg/dL [facility] Work Phone: Comment on above: The drugs N-Acetylcy steine and Metamizole may falsely depress this assay. Reference Range HDL <40 mg/dL Low HDL Cholesterol HDL >or= 60 mg/dL High HDL Cholesterol Serum or plasma cholesterol in VLDL measurement (mass/volume)on 11-27-2021 Cholesterol in VLDL [Mass/Vol] 60 mg/dL 5-40 [facility] Work Phone: Serum or plasma creatinine m easurement (mass/volume)on 11-27-2021 Creatinine [Mass/Vol] 0.70 mg/dL 0.55-1.02 [facility] Work Phone: Comment on above: The validity of the calculated GFR & GFRAA in patients over 70 years has not been determined. Clinical correlation is essential. Serum or plasma low density lipoprotein (LDL) cholesterol measurement (mass/volume)on 11-27-2021 Cholesterol in LDL [Mass/Vol] 104 mg/dL 0-130 [facility] Work Phone: Serum or plasma urea nitroge n measurement (mass/volume)on 11-27-2021 Urea nitrogen [Mass/Vol] 10 mg/dL 7-18 [facility] Work Phone: Serum or plasma uric acid me asurement (mass/volume)on 11-27-2021 Urate [Mass/Vol] 7.2 mg/dL 2.6-6.0 [facility] Work Phone: Comment on above: The drugs N-Acetylcy steine and Metamizole may falsely depress this assay. Serum rheumatoid factor dete ctionon 11-27-2021 Rheumatoid factor Ql (S) < 10.0 IU/mL <15 [facility] Work Phone: Thin prep Papanicolaou smear with manual screeningon 11-27-2021 Thin prep Papanicolaou smear with manual screening 52 U/L 15-37 [facility] Work Phone: Thin prep Papanicolaou smear with manual screening 4 5-15 [facility] Work Phone: Clinical Summary: HMSPatient IDon 07-28-2020 OOP [facility] Work Phone: HPV w/Genotypeon 07-05-2020 HPV HighRisk Other Normal [facility] Reference Lab Comment on above: Result Comment: Nega tive for HPV DNA high risk types: 31,33,35,39,45,51,52,56,58,59,66,68 by This test was developed and its performance characteristics determined by [facility] [place] ([facility]). It has not been cleared or approved by the FDA. [facility] is regulated under CLIA as qualified to perform high-complexity testing. This test is used for clinical purposes. It should not be regarded as investigational or for research. PCR. This test was developed and its performance characteristics determined by [facility]'s [facility] [place] ([facility]). It has not been cleared or approved by the FDA. [facility] is regulated under CLIA as qualified to perform high-complexity testing. This test is used for clinical purposes. It should not be regarded as investigational or for research. Performed By: #### H PVHRR #### [facility] [address] [place] [id number] HPV HighRisk Type 16 NHPV16 Normal [facility] Reference Lab Comment on above: Performed By: #### H PVHRR #### [facility] [address] [place], [place] [address] HPV HighRisk Type 18 NHPV18 Normal [facility] Reference Lab Comment on above: Performed By: #### H PVHRR #### [facility] [address] [place] [address] CYTOLOGYon 07-01-2020 CYTOLOGY ADDITIONAL PROCEDURES PRESENT Specimen #: [id number] Submitting Physician: DESHAUN BUCKNER SPECIMEN SUBMITTED A: CERVICAL, SCREENING, FLUID _ FINAL DIAGNOSIS A. CERVICAL, SCREENING, FLUID Satisfactory for interpretation. No endocervical component. Negative for intraepithelial lesion or malignancy. Leslie Nguyen CT(ASCP) (Electronic Signature) _ ADDITIONAL PROCEDURE(S) HUMAN PAPILLOMA VIRUS Date Ordered: 07/04/2020 Date Reported: 07/05/2020 Procedure Results and Interpretation Negative for HPV DNA high risk type 16 by PCR. Negative for HPV DNA high risk type 18 by PCR. Negative for HPV DNA high risk types: 31,33,35,39,45,51,52,5 6,58,59,66,68 by PCR. This test was developed and its performance characteristics determined by [facility] [place] ([facility]). It has not been cleared or approved by the FDA. [facility] is regulated under CLIA as qualified to perform high-complexity testing. This test is used for clinical purposes. It should not be regarded as investigational or for research. 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 CLIA Number: [id number] The Pap Smear is a screening test for cervical cancer. False negative results occur with all screening tests, emphasizing the need for rescreening at recommended intervals, and clinical correlation. Normal [facility] Reference Lab Comment on above: Performed By: #### C #### See report for performing lab information. CBC and Differentialon 01-29 Abs Baso 0.03 k/uL Normal <0.11 [facility] Reference Lab Comment on above: Performed By: #### C BCDIF, CMP, LIPB, HBA1C #### [facility] Routine Lab [address] [place] [address] Abs [place] 0.45 k/uL Normal <0.87 [facility] Reference Lab Comment on above: Performed By: #### C BCDIF, CMP, LIPB, HBA1C #### [facility] Routine Lab [address] [place] [address] Abs Neut 3.32 k/uL Normal 1.45-7.50 [facility] Reference Lab Comment on above: Performed By: #### C BCDIF, CMP, LIPB, HBA1C #### [facility] [address] [place], [place] [address] Absolute nRBC <0.01 Normal <0.01 [facility] Reference Lab Comment on above: Performed By: #### C BCDIF, CMP, LIPB, HBA1C #### [facility] [address] [place] [address] Basophils/100 WBC (Bld) 0.6 % Normal [facility] Reference Lab Comment on above: Performed By: #### C BCDIF, CMP, LIPB, HBA1C #### [facility] [address] [place] [phone] DTYPE ADIFF Normal [facility] Reference Lab Comment on above: Performed By: #### C BCDIF, CMP, LIPB, HBA1C #### [facility] [address] [place] [address] Eosinophils (Bld) [#/Vol] 0.13 10*3/uL Normal <0.46 [facility] Reference Lab Comment on above: Performed By: #### C BCDIF, CMP, LIPB, HBA1C #### [facility] [address] [place] [address] Eosinophils/100 WBC (Bld) 2.4 % Normal [facility] Reference Lab Comment on above: Performed By: #### C BCDIF, CMP, LIPB, HBA1C #### [facility] [address] [place] [phone] Erythrocyte distribution width (RBC) [Ratio] 13.5 % Normal 11.5-15.0 [facility] Reference Lab Comment on above: Performed By: #### C BCDIF, CMP, LIPB, HBA1C #### [facility] [address] [place] [address] Hematocrit (Bld) [Volume fraction] 46.5 % High 36.0-46.0 [facility] Reference Lab Comment on above: Performed By: #### C BCDIF, CMP, LIPB, HBA1C #### [facility] [address] [place], [place] [address] Hemoglobin (Bld) [Mass/Vol] 15.9 g/dL High 11.5-15.5 [facility] Reference Lab Comment on above: Performed By: #### C BCDIF, CMP, LIPB, HBA1C #### [facility] [address] [place], [place] [address] Lymphocytes (Bld) [#/Vol] 1.46 10*3/uL Normal 1.00-4.00 [facility] Reference Lab Comment on above: Performed By: #### C BCDIF, CMP, LIPB, HBA1C #### [facility] [address] [place] [address] Lymphocytes/100 WBC (Bld) 27.0 % Normal [facility] Reference Lab Comment on above: Performed By: #### C BCDIF, CMP, LIPB, HBA1C #### [facility] [address] [place] [address] MCH (RBC) [Entitic mass] 30.6 pG Normal 26.0-34.0 [facility] Reference Lab Comment on above: Performed By: #### C BCDIF, CMP, LIPB, HBA1C #### [facility] [address] [place], [place] [address] MCHC (RBC) [Mass/Vol] 34.2 g/dL Normal 30.5-36.0 [facility] Reference Lab Comment on above: Performed By: #### C BCDIF, CMP, LIPB, HBA1C #### [facility] [address] [place], [place] [address] MCV (RBC) [Entitic vol] 89.6 fL Normal 80.0-100.0 [facility] Reference Lab Comment on above: Performed By: #### C BCDIF, CMP, LIPB, HBA1C #### [facility] [address] [place], [place] [address] Monocytes/100 WBC (Bld) 8.3 % Normal [facility] Reference Lab Comment on above: Performed By: #### C BCDIF, CMP, LIPB, HBA1C #### [facility] [address] [place], [place] [address] Neutrophils/100 WBC (Bld) 61.7 % Normal [facility] Reference Lab Comment on above: Performed By: #### C BCDIF, CMP, LIPB, HBA1C #### [facility] [address] [place] [address] NRBCs 0.0 /100 WBC Normal 0 [facility] Reference Lab Comment on above: Performed By: #### C BCDIF, CMP, LIPB, HBA1C #### [facility] [address] [place], [place] [address] Platelet mean volume (Bld) [Entitic vol] 12.5 fL Normal 9.0-12.7 [facility] Reference Lab Comment on above: Performed By: #### C BCDIF, CMP, LIPB, HBA1C #### [facility] [address] [place], [place] [address] Platelets (Bld) [#/Vol] 147 10*3/uL Low 150-400 [facility] Reference Lab Comment on above: Performed By: #### C BCDIF, CMP, LIPB, HBA1C #### [facility] [address] [place], [place] [address] RBC (Bld) [#/Vol] 5.19 10*6/uL Normal 3.90-5.20 [facility] Reference Lab Comment on above: Performed By: #### C BCDIF, CMP, LIPB, HBA1C #### [facility] [address] [place], [place] [address] WBC (Bld) [#/Vol] 5.41 10*3/uL Normal 3.70-11.00 [facility] Reference Lab Comment on above: Performed By: #### C BCDIF, CMP, LIPB, HBA1C #### [facility] [address] [place] [phone] Comp Metabolic Panelon 01-29 Albumin [Mass/Vol] 4.1 g/dL Normal 3.9-4.9 [facility] Reference Lab Comment on above: Performed By: #### C BCDIF, CMP, LIPB, HBA1C #### [facility] [address] [place] [address] ALP [Catalytic activity/Vol] 78 U/L Normal 34-123 [facility] Lab Comment on above: Performed By: #### C BCDIF, CMP, LIPB, HBA1C #### [facility] [address] [place] [address] ALT [Catalytic activity/Vol] 71 U/L High 7-38 [facility] Reference Lab Comment on above: Performed By: #### C BCDIF, CMP, LIPB, HBA1C #### [facility] [address] [place] [phone] Anion gap [Moles/Vol] 13 mmol/L Normal 9-18 [facility] Lab Comment on above: Performed By: #### C BCDIF, CMP, LIPB, HBA1C #### [facility] [address] [place] [address] AST [Catalytic activity/Vol] 65 U/L High 13-35 [facility] Reference Lab Comment on above: Performed By: #### C BCDIF, CMP, LIPB, HBA1C #### [facility] [address] [place] [phone] Bilirubin Ql (U) 0.9 mg/dL Normal 0.2-1.3 [facility] Reference Lab Comment on above: Performed By: #### C BCDIF, CMP, LIPB, HBA1C #### [facility] [address] [place] [address] Calcium [Mass/Vol] 9.8 mg/dL Normal 8.5-10.2 [facility] Reference Lab Comment on above: Performed By: #### C BCDIF, CMP, LIPB, HBA1C #### [facility] [address] [place] [address] Chloride [Moles/Vol] 100 mmol/L Normal 97-105 [facility] Reference Lab Comment on above: Performed By: #### C BCDIF, CMP, LIPB, HBA1C #### [facility] [address] [place] [address] CO2 [Moles/Vol] 26 mmol/L Normal 22-30 [facility] Reference Lab Comment on above: Performed By: #### C BCDIF, CMP, LIPB, HBA1C #### [facility] [address] [place] [address] Creatinine [Mass/Vol] 0.59 mg/dL Normal 0.58-0.96 [facility] Reference Lab Comment on above: Performed By: #### C BCDIF, CMP, LIPB, HBA1C #### [facility] [address] [place], [place] [address] eGFR- Amer. >[address] [facility] Reference Lab Comment on above: Performed By: #### C BCDIF, CMP, LIPB, HBA1C #### [facility] [address] [place] [phone] GFR/1.73 sq M predicted among non-blacks MDRD (S/P/Bld) [Vol rate/Area] mL/min/{1.73_m2} Normal [facility] Reference Lab Comment on above: Performed By: #### C BCDIF, CMP, LIPB, HBA1C #### [facility] [address] [place] [address] Glucose [Mass/Vol] 306 mg/dL High 74-99 [facility] Reference Lab Comment on above: Performed By: #### C BCDIF, CMP, LIPB, HBA1C #### [facility] [address] [place], [place] [address] Potassium [Moles/Vol] 3.9 mmol/L Normal 3.7-5.1 [facility] Reference Lab Comment on above: Performed By: #### C BCDIF, CMP, LIPB, HBA1C #### [facility] [address] [place], [place] [address] Protein [Mass/Vol] 6.7 g/dL Normal 6.3-8.0 [facility] Reference Lab Comment on above: Performed By: #### C BCDIF, CMP, LIPB, HBA1C #### [facility] [address] [place], [place] [address] Sodium [Moles/Vol] 139 mmol/L Normal 136-144 [facility] Reference Lab Comment on above: Performed By: #### C BCDIF, CMP, LIPB, HBA1C #### [facility] [address] [place], [place] [address] Urea nitrogen [Mass/Vol] 12 mg/dL Normal 7-21 [facility] Reference Lab Comment on above: Performed By: #### C BCDIF, CMP, LIPB, HBA1C #### [facility] [address] [place], [place] [address] Hemoglobin A1con 01-30-2020 HbA1c (Bld) [Mass fraction] 8.6 % High 4.3-5.6 [facility] Reference Lab Comment on above: Performed By: #### C BCDIF, CMP, LIPB, HBA1C #### [facility] [address] [place], [place] [address] HbA1c (Bld) [Mass fraction] 200 mg/dL Normal [facility] Reference Lab Comment on above: Performed By: #### C BCDIF, CMP, LIPB, HBA1C #### [facility] Routine Lab [address] [place], [place] [address] Lipid Panel, Bas[place] [phone] Cholesterol [Mass/Vol] 196 mg/dL Normal <[address] [facility] Reference Lab Comment on above: Performed By: #### C BCDIF, CMP, LIPB, HBA1C #### [facility] [address] [place], [place] [address] Cholesterol in HDL [Mass/Vol] 37 mg/dL Low >39 [facility] Reference Lab Comment on above: Performed By: #### C BCDIF, CMP, LIPB, HBA1C #### [facility] [address] [place], [place] [address] Cholesterol in LDL [Mass/Vol] 87 mg/dL Normal <100 [facility] Reference Lab Comment on above: Performed By: #### C BCDIF, CMP, LIPB, HBA1C #### [facility] [address] [place], [place] [address] Cholesterol in VLDL [Mass/Vol] 72 mg/dL High <30 [facility] Reference Lab Comment on above: Performed By: #### C BCDIF, CMP, LIPB, HBA1C #### [facility] [address] [place], [place] [address] Cholesterol non HDL [Mass/Vol] 159 mg/dL High <130 [facility] Reference Lab Comment on above: Performed By: #### C BCDIF, CMP, LIPB, HBA1C #### [facility] Routine Lab [address] [place], [place] [address] LDL:HDL Ratio 2.35 Normal <2.54 [facility] Reference Lab Comment on above: Performed By: #### C BCDIF, CMP, LIPB, HBA1C #### [facility] Routine Lab [address] [place], [place] [address] TC:HDL Ratio 5.30 High <5.10 [facility] Reference Lab Comment on above: Performed By: #### C BCDIF, CMP, LIPB, HBA1C #### [facility] Routine Lab [address] [place], [place] [phone] Triglyceride [Mass/Vol] 358 mg/dL High <150 [facility] Reference Lab Comment on above: Performed By: #### C BCDIF, CMP, LIPB, HBA1C #### [facility] Routine Lab [address] [place], [place] [phone] Lipid Panel, Bas[place] 020 Fasting Time 12 hrs Normal [facility] Reference Lab Comment on above: Performed By: #### C BCDIF, CMP, LIPB, HBA1C #### [facility] Routine Lab [address] [place], [place] [address] Vital Signs Date Time Vital Sign Value Performing Clinician Facility 10-09-2023 14:53-0500 Body weight 108.41 kg Kira Lopes MD Work Phone: [facility] 10-09-2023 14:53-0500 Diastolic blood pressure 78 mm[Hg] Kira Lopes MD Work Phone: [facility] 10-09-2023 14:53-0500 Systolic blood pressure 130 mm[Hg] Kira Lopes MD Work Phone: [facility] 09-04-2022 12:32-0500 Body temperature 97.11 [degF] Shira Nelson NETSUITE CONSULTANT.DIRECTOR OF OFFICIATING Work Phone: [facility] 09-04-2022 12:32-0500 Body weight 106.59 kg Shira Nelson NETSUITE CONSULTANT.DIRECTOR OF OFFICIATING Work Phone: [facility] 09-04-2022 12:32-0500 Diastolic blood pressure 90 mm[Hg] Shira Nelson NETSUITE CONSULTANT.DIRECTOR OF OFFICIATING Work Phone: [facility] 09-04-2022 12:32-0500 Heart rate 70 /min Shira Nelson NETSUITE CONSULTANT.DIRECTOR OF OFFICIATING Work Phone: [facility] 09-04-2022 12:32-0500 Respiratory rate 16 /min Shira Nelson NETSUITE CONSULTANT.DIRECTOR OF OFFICIATING Work Phone: [facility] 09-04-2022 12:32-0500 SaO2% (BldA) [Mass fraction] 98 % Shira Nelson NETSUITE CONSULTANT.DIRECTOR OF OFFICIATING Work Phone: [facility] 09-04-2022 12:32-0500 Systolic blood pressure 152 mm[Hg] Shira Nelson NETSUITE CONSULTANT.DIRECTOR OF OFFICIATING Work Phone: [facility] NEGATED: Highlighted [id number] 13:24-0500 BMI (Body Mass Index) 37.54 kg/m2 Branden Dale AT [facility] Work Phone: NEGATED: Highlighted [id number] 13:24-0500 Body weight 111.59 kg Branden Dale AT [facility] Work Phone: NEGATED: Highlighted [id number] 13:24-0500 Body weight 112 kg Branden Dale AT [facility] Work Phone: NEGATED: Highlighted [id number] 13:24-0500 Height 172.72 cm Branden Dale AT [facility] Work Phone: NEGATED: Highlighted [id number] 13:24-0500 Height 173 cm Branden Dale AT [facility] Work Phone: Encounters Encounter Date Encounter Type Care Provider Facility Start: 04-13-2025 End: 04-13-2025 ambulatory Michelle Mckeon RN [facility] Start: 04-13-2025 End: 04-13-2025 Patient encounter procedure Michelle Mckeon RN [facility] Start: 12-21-2024 ambulatory KURT Cristina y:[facility] Start: 11-01-2024 End: 11-01-2024 ambulatory Kaylah Porter RN [facility] Start: 11-01-2024 End: 11-01-2024 Patient encounter procedure Kaylah Proter RN [facility] Start: 10-30-2024 End: 10-30-2024 ambulatory Henry Grider PA Facility:[facility] Start: 10-30-2024 End: 10-30-2024 ambulatory Henry Grider PA Facility:[facility] Start: 08-06-2024 Encounter for other preprocedural examination [facility] Start: 06-25-2024 End: 06-25-2024 Telephone encounter Emery Alcala MD Work Phone: [facility] End[facility] Comment on above: Cancelled Appointmen t Start: 06-15-2024 End: 06-15-2024 Telephone encounter Emery Alcala MD Work Phone: [facility] Comment on above: Appointment Request Start: 03-03-2024 End: 03-13-2024 ambulatory [facility] Facility:[facility] Start: 02-19-2024 End: 02-19-2024 ambulatory Josesito Dialloer [facility] Start: 02-19-2024 End: 02-19-2024 ambulatory Josesito Mike Facility:[facility] Start: 02-17-2024 Telephone encounter Kira Lopes MD Work Phone: [facility] Comment on above: Appointment Start: 02-05-2024 End: 02-05-2024 ambulatory Ric Nguyễn Facility:[facility] Start: 12-25-2023 End: 12-25-[address] Josesito Mckeon Work Phone: [facility] Work Phone: Start: 12-25-2023 End: 12-25-[address] Josesito Mckeon Work Phone: [facility]-Laboratory Work Phone: Start: 12-25-2023 End: 12-25-2023 ambulatory Ric Nguyễn Facility:[facility] Start: 11-12-2023 End: 11-12-[address] Josesito Mckeon Work Phone: [facility] Work Phone: Start: 11-12-2023 End: 11-12-[address] Josesito Mckeon Work Phone: [facility]-Ultrasound, [facility] Work Phone: Start: 10-23-2023 Telephone encounter Kira Lopes MD Work Phone: [facility] Comment on above: Discuss Labs; saliva ry cortisol Start: 10-09-2023 End: 10-09-2023 Office outpatient new 45 minutes Kira Lopes MD Work Phone: [facility] Comment on above: Adrenal adenoma, lef t (Primary Dx); Primary hypertension Start: 10-01-2023 End: 10-01-[address] Josesito Mckeon Work Phone: [facility] Work Phone: Start: 09-23-2023 Telephone encounter Historical Provider Work Phone: [facility] Comment on above: Incomplete Referral Start: 08-28-2023 End: 08-28-2023 ambulatory [facility] Work Phone: Start: 08-28-2023 End: 08-28-2023 Patient encounter procedure [facility]-Laboratory Work Phone: Start: 08-13-2023 End: 08-13-2023 ambulatory [facility] Work Phone: Start: 08-13-2023 End: 08-13-2023 Patient encounter procedure [facility]-Cat Scan, [facility] Work Phone: Start: 07-19-2023 End: 07-19-2023 ambulatory [facility] Work Phone: Start: 07-19-2023 End: 07-19-2023 Patient encounter procedure [facility]-Radiology, [facility] Work Phone: Start: 02-07-2023 End: 02-07-2023 ambulatory [facility] Work Phone: Start: 02-07-2023 End: 02-07-2023 Discharged Recurring [facility]-Physical Therapy Work Phone: Start: 09-04-2022 End: 09-04-2022 ambulatory Facility:[facility] Start: 09-04-2022 End: 09-04-2022 Patient encounter procedure Shira Nelson NETSUITE CONSULTANT.DIRECTOR OF OFFICIATING Work Phone: [facility] Comment on above: Back pain of lumbar region with sciatica (Primary Dx) Start: 12-02-2021 End: 12-02-2021 Patient encounter procedure [facility]-Ultrasound, [facility] Start: 11-27-2021 End: 11-27-2021 Patient encounter procedure [facility]-Laboratory Start: 07-28-2020 End: 07-29-2020 Patient encounter procedure Tawana Mata NETSUITE CONSULTANT-DIRECTOR OF OFFICIATING Work Phone: [facility] Work Phone: Start: 07-28-2020 End: 07-28-2020 Pt evaluation Tawana Mata NETSUITE CONSULTANT-DIRECTOR OF OFFICIATING Work Phone: [facility] Work Phone: Start: 03-18-2012 Evaluation and management of inpatient [facility]- Procedures Date Procedure Procedure Detail Performing Clinician Start: 12-25-[address] e detection [address] Josesito Mckeon Work Phone: Start: 12-25-[address] Josesito Mckeon Work Phone: Start: 12-25-[address] Josesito Mckeon Work Phone: Start: 11-12-2023 Ultrasound elastogra phy of liver Dr. Josesito Mckeon Work Phone: Start: 08-13-2023 Computed tomography of abdomen and pelvis with contrast Start: 07-19-2023 Complete x-ray serie s of lumbar spine with bending views Start: 12-02-2021 Ultrasonography of abdomen Start: 07-28-2020 End: 07-29-2020 Blood pressure screening not performed - reason not given Tawana Mata NETSUITE CONSULTANT-DIRECTOR OF OFFICIATING Work Phone: Start: 07-28-2020 End: 07-29-2020 BMI documented as above normal parameters - follow-up documented Tawana Mata NETSUITE CONSULTANT-DIRECTOR OF OFFICIATING Work Phone: Start: 07-28-2020 End: 07-29-2020 Documentation of current medications Tawana Mata NETSUITE CONSULTANT-DIRECTOR OF OFFICIATING Work Phone: Start: 07-28-2020 End: 07-29-2020 Pain assessment documented as positive - follow-up documented Tawana Mata NETSUITE CONSULTANT-DIRECTOR OF OFFICIATING Work Phone: Start: 07-28-2020 End: 07-28-2020 Radex spine cervical 4 or 5 views Tawana Mata NETSUITE CONSULTANT-DIRECTOR OF OFFICIATING Work Phone: Start: 07-28-2020 End: 07-29-2020 Tobacco non-user Tawana Mata NETSUITE CONSULTANT-DIRECTOR OF OFFICIATING Work Phone: Start: 03-10-2003 Mammography Shira Ri ggs NETSUITE CONSULTANT.DIRECTOR OF OFFICIATING Work Phone: NEGATED: Highlighted rowStart: 07-28-2020 End: 07-28-2020 Documentation of current medications Branden Hunter AT Plan of Treatment Date Care Activity Detail Author Start: 2032 RSV Immunization for Adults (1 - 1-dose 75+ series) RSV Immunization for Adults (1 - 1-dose 75+ series) [facility] Start: 05-17-2025 Influenza vaccination Influenza Vaccine (#1) [facility] Start: 10-15-2024 Diabetes: Estimated Glomerular Filtration Rate for Kidney Health Diabetes: Estimated Glomerular Filtration Rate for Kidney Health [facility] Start: 09-16-2024 Medicare Advantage Annual Wellness Visit Medicare Advantage Annual Wellness Visit [facility] Start: 06-25-2024 End: 06-25-2024 Patient encounter procedure 06/25/2024 2:40 PM EDT Office Visit [facility] Endocrinology - [address] [place] [address] Emery Alcala MD [address] [place] [address] [facility] Start: 05-17-2024 COVID-19 Vaccine ( season) COVID-19 Vaccine ( season) [facility] Start: 05-17-2024 COVID-19 Vaccine ( season) COVID-19 Vaccine () [facility] Start: 05-17-2024 Influenza vaccination [facility] Start: 02-18-2024 End: 02-18-2024 Patient encounter procedure [facility] Start: 12-25-2023 Acute hepatitis 2000 panel - Serum [facility] Start: 12-25-2023 Celiac disease screen [facility] Start: 12-25-2023 IgG subclass panel [Mass/volume] - Serum [facility] Start: 12-25-2023 In-vitro immunologic test [facility] Start: 12-25-2023 Serum immunofixation [facility] Start: 12-25-2023 End: 12-25-2023 [facility] Start: 12-25-2023 Elastase.pancreatic [Presence] in Stool [facility] Start: 12-25-2023 Protein measurement [facility] Start: 12-25-2023 [facility] Start: 10-25-2023 End: 10-25-2024 Cortisol, salivary Cortisol, salivary Lab Routine Adrenal adenoma, left Expected: 10/25/2023 (Approximate), Expires: 10/25/2024 [facility] Work Phone: Comment on above: Expected: 10/25/2023 (Approximate), Expi res: 10/25/2024 Start: 10-09-2023 End: 10-09-2023 Patient encounter procedure 10/09/2023 3:00 PM EST Office Visit [facility] Endocrinology [address] [phone] Kira Lopes MD [address] [address] [facility] Start: 10-09-2023 End: 10-09-2024 Aldosterone Aldosterone Lab Routine Adrenal adenoma, left Expected: 10/09/2023 (Approximate), Expires: 10/09/2024 [facility] Work Phone: Comment on above: Expected: 10/09/2023 (Approximate), Expi res: 10/09/2024 Start: 10-09-2023 End: 10-09-2024 Metanephrines Plasma Metanephrines Plasma Lab Routine Adrenal adenoma, left Expected: 10/09/2023 (Approximate), Expires: 10/09/2024 [facility] Comment on above: Expected: 10/09/2023 (Approximate), Expi res: 10/09/2024 Start: 10-09-2023 End: 10-09-2024 Renin Activity Renin Activity Lab Routine Adrenal adenoma, left Expected: 10/09/2023 (Approximate), Expires: 10/09/2024 [facility] Comment on above: Expected: 10/09/2023 (Approximate), Expi res: 10/09/2024 Start: 09-16-2023 Medicare Advantage Annual Wellness Visit Medicare Advantage Annual Wellness Visit [facility] Start: 05-17-2023 COVID-19 Vaccine ( season) COVID-19 Vaccine ( season) [facility] Start: 05-17-2023 Influenza vaccination Influenza Vaccine (#1) [facility] Start: 05-17-2022 Influenza vaccination INFLUENZA (#1) [facility] Start: 2022 ADVANCE DIRECTIVE DISCUSSION ADVANCE DIRECTIVE DISCUSSION [facility] Start: 2022 BONE DENSITY BONE DENSITY [facility] Start: 2022 Pneumococcal Vaccine: 65+ Years (1 of 1 - PCV) Pneumococcal Vaccine: 65+ Years (1 of 1 - PCV) [facility] Start: 2022 PNEUMOCOCCAL: 65+ (1 - PCV) PNEUMOCOCCAL: 65+ (1 - PCV) [facility] Start: 09-16-2021 DEPRESSION ASSESSMENT DEPRESSION ASSESSMENT [facility] Start: 09-19-2020 End: 09-19-2020 Appointment Appointment [facility] Work Phone: Start: 07-28-2020 End: 07-28-2020 EMG/NCT bilateral upper extremity EMG/NCT bilateral upper extremity [facility] Work Phone: Start: 2017 Hepatitis B Vaccines (1 of 3 - Risk 3-dose series) Hepatitis B Vaccines (1 of 3 - Risk 3-dose series) [facility] Start: 2017 RSV Immunization aged 60 or older (1 - 1-dose 60+ series) RSV Immunization aged 60 or older (1 - 1-dose 60+ series) [facility] Start: 04-08-2017 LIPID SCREEN LIPID SCREEN [facility] Start: 04-08-2015 DIABETES SCREEN DIABETES SCREEN [facility] Start: 2007 Pneumococcal Vaccine: 50+ Years (1 of 1 - PCV) Pneumococcal Vaccine: 50+ Years (1 of 1 - PCV) [facility] Start: 2007 SHINGRIX VACCINE (1 of 2) SHINGRIX VACCINE (1 of 2) [facility] Start: 2007 Zoster Vaccines (1 of 2) Zoster Vaccines (1 of 2) [facility] Start: 03-10-2004 Mammography MAMMOGRAM [facility] Start: 2002 COLOGUARD (FIT-DNA) COLOGUARD (FIT-DNA) [facility] Start: 2002 Colonoscopy COLONOSCOPY [facility] Start: 2002 COLORECTAL CANCER SCREENING COLORECTAL CANCER SCREENING [facility] Start: [address] COLONOGRAPHY [facility] Start: 2002 FECAL OCCULT BLOOD FECAL OCCULT BLOOD [facility] Start: 2002 SIGMOIDOSCOPY SIGMOIDOSCOPY [facility] Start: 1997 Screening for malignant neoplasm of breast Mammogram [facility] Start: 1976 DTaP/Tdap/Td Vaccines (1 - Tdap) DTaP/Tdap/Td Vaccines (1 - Tdap) [facility] Start: 1976 Hepatitis A Vaccines (1 of 2 - Risk 2-dose series) Hepatitis A Vaccines (1 of 2 - Risk 2-dose series) [facility] Start: 1976 Urine microalbumin profile DTAP,TDAP,TD (1 - Tdap) [facility] Start: 1975 Diabetes mellitus screening Diabetes Screening [facility] Start: 1975 Diabetes: Urine Albumin-Creatinine Ratio for Kidney Health Diabetes: Urine Albumin-Creatinine Ratio for Kidney Health [facility] Start: 1975 HEPATITIS C SCREENING HEPATITIS C SCREENING [facility] Start: 1975 Hepatitis C screening Hepatitis C Screening [facility] Start: 1975 HIV SCREENING HIV SCREENING [facility] Start: 1969 Depression Screening Depression Screening [facility] Start: 1967 Diabetic foot examination Diabetes: Foot Exam [facility] Start: 1967 Glaucoma screening Diabetes: Retinopathy Screening [facility] Start: 1967 Preventive dental service Diabetes: Dental Exam [facility] Start: 1957 COVID-19 VACCINE (#1) COVID-19 VACCINE (#1) [facility] Start: 1957 Hemoglobin A1c measurement Diabetes: Hemoglobin A1C [facility] Start: 1957 Lipid panel Lipid Panel [facility] Start: 1957 Medicare Advantage Annual Wellness Visit (AWV) Medicare Advantage Annual Wellness Visit (AWV) [facility] Start: 1957 Screening for malignant neoplasm of colon [facility] Start: 1957 Screening for osteoporosis Bone Density Scan [facility] Acute hepatitis 2000 panel - Serum [facility] Albumin [Moles/volum e] in Serum or Plasma [facility] Albumin/Globulin ratio [facility] Aldosterone Aldosterone Lab Routine Adrenal adenoma, left 10/15/2023 12:30 PM EST [facility] Aldosterone [Mass/vo lume] in Serum or Plasma [facility] Beef IgE Ab [Units/volume] in Serum [facility] C reactive protein [Mass/volume] in Serum or Plasma [facility] CBC W Auto Different ial panel - Blood [facility] Celiac disease screen [facility] Chocolate IgE Ab [Units/volume] in Serum [facility] Clostridioides diffi cile DNA [Presence] in Unspecified specimen by YUNG with probe detection [facility] Codfish IgE Ab [Units/volume] in Serum [facility] [place] IgE Ab [Units/volume] in Serum [facility] Cow milk IgE Ab [Units/volume] in Serum [facility] Elastase.pancreatic [Presence] in Stool [facility] Elastase.pancreatic [Presence] in Stool [facility] Electrophoresis: [id number] [facility] Electrophoresis: bonnie ma globulin [facility] Erythrocyte sediment ation rate [facility] Ferritin [Mass/volum e] in Serum or Plasma [facility] Gastrointestinal pathogens panel - Stool by YUNG with probe detection [facility] Giardia lamblia Ag [Presence] in Stool by Immunoassay [facility] Giardia lamblia anti gen assay [facility] Globulin measurement [facility] Hepatitis A virus Ig M Ab [Presence] in Serum [facility] Hepatitis B core ant ibody measurement, IgM type [facility] Hepatitis B surface antigen measurement [facility] Hepatitis C antibody measurement [facility] IgA [Mass/volume] in Serum or Plasma [facility] IgG [Mass/volume] in Serum or Plasma [facility] IgG subclass 1 [Mass/volume] in Serum [facility] IgG subclass 2 [Mass/volume] in Serum [facility] IgG subclass 3 [Mass/volume] in Serum [facility] IgG subclass 4 [Mass/volume] in Serum [facility] IgG subclass panel [Mass/volume] - Serum [facility] IgM [Mass/volume] in Serum or Plasma [facility] In-vitro immunologic test [facility] Iron [Mass/mass] in Unspecified specimen [facility] Iron and Iron bindin g capacity panel - Serum or Plasma [facility] Lactate dehydrogenas e measurement [facility] Lactoferrin [Presenc e] in Stool by Immunoassay [facility] Metanephrines Plasma Metanephrin es Plasma Lab Routine Adrenal adenoma, left 10/15/2023 12:30 PM [facility] Mycobacterium tuberculosis tuberculin stimulated gamma interferon [Presence] in Blood [facility] Ova and parasites identified in Unspecified specimen by Light microscopy [facility] Ova and parasites identified in Unspecified specimen by Light microscopy [facility] Patient Education \cps-[id number]\CPS_ PtEducat ion\CDC_FALL_PREVENTIO N.pdf [facility] Work Phone: Peanut IgE Ab [Units/volume] in Serum [facility] Pork IgE Ab [Units/volume] in Serum [facility] Procedure [facility] Protein electrophore sis panel - Serum or Plasma [facility] Protein measurement [facility] Protein measurement [facility] Prothrombin time [facility] Renin [Enzymatic activity/volume] in Plasma [facility] Renin Activity Renin Activity L ab Routine Adrenal adenoma, left 10/15/2023 12:30 PM [facility] Reticulocyte count [facility] Ericson IgE Ab [Units/volume] in Serum [facility] Serum immunofixation [facility] Shrimp IgE Ab [Units/volume] in Serum [facility] Soybean IgE Ab [Units/volume] in Serum [facility] T4 free measurement [facility] Thyroid stimulating hormone measurement [facility] Tissue transglutamin ase IgA Ab [Units/volume] in Serum [facility] Triglycerides measurement [facility] Triiodothyronine, fr ee measurement [facility] Tuna IgE Ab [Units/volume] in Serum [facility] Wheat IgE Ab [Units/volume] in Serum [facility] Whole Egg IgE Ab [Units/volume] in Serum [facility] Payers Date Payer Category Payer Medicaid [id number] 2023 Self-pay [id number] 2022 Medicare HMO UHC DUAL COMPLET E [id number] 2022 Medicare [id number] 2022 Unknown [id number] Medicare MEDICARE PART A B [id number] Unknown [id number] Unknown [id number] Unknown [id number] Unknown [id number] Unknown [id number] Unknown [id number] Unknown [id number] Unknown [id number] Unknown [id number] Unknown [id number] Social History Date Type Detail Facility Start: 02-22-2021 End: 01-30-2022 Assertion Unknown if ever smoked [facility] [place] [facility] Work Phone: Start: 1955 Sex Assigned At Female [facility] Start: 05-09-2012 End: 10-09-2023 Tobacco smoking status MOIS Never smoked tobacco [facility] Start: 05-09-2012 End: 10-09-2023 Tobacco use and exposure Smokeless tobacco non-user [facility] Start: 09-04-2022 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 (finding) [facility] [facility] 1955 Sex Assigned At Not on file [facility] Start: 10-09-2023 Gender identity Not on file [facility] Start: 10-09-2023 Alcohol intake Ex-drinker (finding) [facility] Start: 10-09-2023 History of Social function [facility] Start: 08-16-2023 Sex Female (finding) [facility] Clinical Notes 03-17-2012 to 04-13-2025 Telephone Encounter - Michelle Mckeon RN - 04/13/2025 4:46 PM EDTTelephone Encounter - Michelle Mckeon RN - 04/13/2025 4:46 PM EDTTelephone Encounter - Camille Leonard - 06/25/2024 9:00 AM EDT Note Date & Type Note Facility 04-13-2025 Telephone encounter Note S: Patient spoke with CAC nurse regarding med refill B: Metoprolol Tartrate 50 MG Tablet A: Patient states she has been out for 3 days, requesting this be sent in R: Spoke with dr Mckeon who gave telephone order for metoprolol 50mg twice daily #60, no refills Rx called into [facility] [phone] Patient made aware, no further needs Reason for Disposition [1] Prescription refill request for ESSENTIAL medicine (i.e., likelihood of harm to patient if not taken) AND [2] triager unable to refill per department policy Protocols used: Medication Refill and Renewal [id number] [facility] 04-13-2025 Miscellaneous Notes S: Patient spoke with CAC nurse regarding med refill B: Metoprolol Tartrate 50 MG Tablet A: Patient states she has been out for 3 days, requesting this be sent in R: Spoke with dr Mckeon who gave telephone order for metoprolol 50mg twice daily #60, no refills Rx called into [facility] [phone] Patient made aware, no further needs Reason for Disposition [1] Prescription refill request for ESSENTIAL medicine (i.e., likelihood of harm to patient if not taken) AND [2] triager unable to refill per department policy Protocols used: Medication Refill and Renewal [id number] documented in this encounter [facility] 11-01-2024 Telephone encounter Note S: Patient spoke with CAC nurse regarding appointment B: Onset of symptoms/concern today A: pt calling to cancel appointment for 2/17 at 1030 am with Fili Deluca NP R: pt advised appointment is cancelled per her request and the office would be back in contact to reschedule. Patient understands care advice. No further needs at this time. Patient instructed to call back with new or worsening symptoms. Reason for Disposition Requesting regular office appointment Protocols used: Information Only Call - No [id number] [facility] 11-01-2024 Miscellaneous Notes S: Patient spoke with CAC nurse regarding appointment B: Onset of symptoms/concern today A: pt calling to cancel appointment for 11/02 at 1030 am with Fili Deluca NP R: pt advised appointment is cancelled per her request and the office would be back in contact to reschedule. Patient understands care advice. No further needs at this time. Patient instructed to call back with new or worsening symptoms. Reason for Disposition Requesting regular office appointment Protocols used: Information Only Call - No [id number] documented in this encounter [facility] 06-25-2024 Telephone encounter Note Name of caller: Peter Contact phone number: [phone] Relationship to Patient: patient Provider: Practice: ENDO Chief Complaint/Reason for Call: Patient cancelled appointment for today. Did not wish to reschedule. FYI Best time of day caller can be reached: any Patient advised that office/PCP has 24-48 business hours to return their call: no [facility] 06-25-2024 Miscellaneous Notes Name of caller: Peter Contact phone number: [phone] Relationship to Patient: patient Provider: Practice: ENDO Chief Complaint/Reason for Call: Patient cancelled appointment for today. Did not wish to reschedule. FYI Best time of day caller can be reached: any Patient advised that office/PCP has 24-48 business hours to return their call: no documented in this encounter [facility] 06-15-2024 Telephone encounter Note Called pt and rescheduled appt. [facility] 06-15-2024 Miscellaneous Notes Called pt and rescheduled appt. Name of Caller: jo Contact Reason for Appointment: patient was rescheduled to 08/12/24 with Alger. Jo states she can not and will not travel to [place]. It has to be [place] or nothing. Please call her back to reschedule Office Name: neuro documented in this encounter [facility] 06-15-2024 Telephone encounter Note Name of Caller: jo Contact Reason for Appointment: patient was rescheduled to 08/12/24 with Alger. Jo states she can not and will not travel to [place]. It has to be [place] or nothing. Please call her back to reschedule Office Name: neuro [facility] 02-17-2024 Telephone encounter Note Name of caller: Peter Contact phone number: [phone] Relationship to Patient: patient Provider: Dr. Lopes Practice: [facility] Chief Complaint/Reason for Call: Pt states she needs to reschedule her appointment from 02/17. Pt states she has several appointments this week and would like to schedule an appointment for any day after Saturday in the afternoon. Please advise. Best time of day caller can be reached: any Patient advised that office/PCP has 24-48 business hours to return their call: Yes [facility] 02-17-2024 Miscellaneous Notes Name of caller: Peter Contact phone number: [phone] Relationship to Patient: patient Provider: Dr. Lopes Practice: [facility] Chief Complaint/Reason for Call: Pt states she needs to reschedule her appointment from 02/17. Pt states she has several appointments this week and would like to schedule an appointment for any day after Saturday in the afternoon. Please advise. Best time of day caller can be reached: any Patient advised that office/PCP has 24-48 business hours to return their call: Yes documented in this encounter [facility] 10-25-2023 Telephone encounter Note Pamela, can you please mail out the paperwork for saliva cortisol and the salivary cortisol kit to patient's home address please? Thanks [facility] 10-25-2023 Miscellaneous Notes Pamela, can you please mail out the paperwork for saliva cortisol and the salivary cortisol kit to patient's home address please? Thanks Results of recent labs reviewed. Patient continues to have a suppressed renin however aldosterone level continues to remain <10. At this time given the fact that aldosterone levels have overall been less than 5-10, primary aldosteronism unlikely. Her blood pressure remains well-controlled on current regimen-continue current medications. I will repeat adrenal CT in the winter of this year to assess for stability of adenoma. Midnight salivary cortisol needs to be repeated Lab rejected salivary cortisol, insufficient amount. If you want it re-done, a new order needs to be place and pt will have to turkey picker a new kit. Per Tonya Paredes at [facility] lab. [phone] Name of caller: Peter Contact phone number: [phone] Relationship to Patient: patient Provider: Dr. Lopes Practice: Endo Chief Complaint/Reason for Call: Pt would like to speak with someone in office regarding her recent labs. Pt would like a call back to discuss the results. Please advise. Best time of day caller can be reached: any Patient advised that office/PCP has 24-48 business hours to return their call: N/A documented in this encounter [facility] 10-25-2023 Telephone encounter Note Results of recent labs reviewed. Patient continues to have a suppressed renin however aldosterone level continues to remain <10. At this time given the fact that aldosterone levels have overall been less than 5-10, primary aldosteronism unlikely. Her blood pressure remains well-controlled on current regimen-continue current medications. I will repeat adrenal CT in the winter of this year to assess for stability of adenoma. Midnight salivary cortisol needs to be repeated [facility] 10-24-2023 Telephone encounter Note Lab rejected salivary cortisol, insufficient amount. If you want it re-done, a new order needs to be place and pt will have to turkey picker a new kit. [facility]. [phone] [facility] 10-23-2023 Telephone encounter Note Name of caller: Peter Contact phone number: [phone] Relationship to Patient: patient Provider: Dr. Lopes Practice: Endo Chief Complaint/Reason for Call: Pt would like to speak with someone in office regarding her recent labs. Pt would like a call back to discuss the results. Please advise. Best time of day caller can be reached: any Patient advised that office/PCP has 24-48 business hours to return their call: N/A [facility] 10-09-2023 History of Presen t illness Narrative Images from the original note were not included. [facility] [address] [place] [address] [facility] [address] Dept: [phone] Dept Loc: [phone] Visit type: new Reason for Visit: New Patient Assessment and Plan 1. Adrenal adenoma, left - Salivary Cortisol - Aldosterone - Renin Activity - Metanephrines Plasma - Basic metabolic panel - TSH 2. Primary hypertension - Patient with history of hypertension that is fairly controlled at this time - Workup done for evaluating secondary causes of hypertension showed aldosterone level between 4-5, concurrent renin suppressed. Potassium was normal at this time. Hence patient has been referred to endocrine for workup for primary - hyperaldosteronism - Imaging findings showed a left-sided 1.2 cm adrenal adenoma - She has already been started on Aldactone. My initial plan was to switch Aldactone to a different antihypertensive agent and repeat labs however patient has had adverse reactions to multiple antihypertensives as mentioned below. - An increased PAC/PRA ratio alone is not diagnostic and patient will need confirmatory testing. Also typically aldosterone levels are more higher and patient might have concurrent hypokalemia, metabolic alkalosis which is not seen in this patient. - In addition, nonfunctioning unilateral adrenal macroadenoma's are not uncommon, especially in patients older than 40 years of age. Hence we will need confirmatory testing before proceeding to AVS/surgery - For the time being I will repeat 8 AM renin activity, aldosterone along with midnight salivary cortisol, plasma metanephrines and thyroid functions - If lab remains indeterminate, will proceed to confirmatory testing I reviewed: laboratory results reviewed: Yes radiographic reports reviewed: Yes I reviewed the radiographic images personally at the time of today's visit: No Pt was advised of the results. Records from outside facility/PCP office to be requested: No Scripts sent to pharmacy of pt choice: No Follow up in about 4 months (around 02/07/2024). Subjective HPI PCP is Josesito Mckeon MD Referring is PCP Previous Cash Crop Farmer: elo [facility] office visit: 09/2023 Last office visit: 09/2023 Essential hypertension: Left-sided adrenal adenoma: Concern for primary hyperaldosteronism: Patient has hypertension that was diagnosed in 2009 and over the years there has been difficulty to control blood pressure and hence she had renin and aldosterone levels checked. Renin was suppressed and concurrent aldosterone level was between 4-5 and PAC/PRA ratio was >20 , patient has been referred to endocrinology. She also had a CT abdomen checked which revealed a 1.2 cm left-sided adrenal adenoma in July 2023 Pt meets the following for raised suspicion and need for case detection: [] Sustained BP >150/100 on 3 consecutive measurements on different days [] BP >140/90 resistance to 3 conventional antihypertensives (including diuretic) [] Controlled BP <140/90 on 4 or more antihypertensives []and spontaneous or diuretic induced hypokalemia [x] HTN and adrenal incidentaloma [] HTN and CRISTA [] HTN and a family h/o early onset (age<40) HTN or stroke [] All hypertensive relatives with primary hyperaldosteronism (Legend: [x] present, [] not present) Current Anti-HTN medication regimen: Metoprolol 50 mg bid Aldactone 50 mg daily -started this month Previously used anti-HTN medications and timing (if names and timing known by pt or by EMR review): Hydralazine Lisinopril - cough Amlodipine Hydrochlorothiazide Labetalol Losartan coreg Recent recorded BP measurements: 130/78 Pt monitors BP at home: Yes Type of cuff: Area of body measured: Pt measures after seated and rested for 5min: Yes Pt reports their home BP measurements are: 130-140/70-80 Patient mentions that blood pressure has been better controlled after starting Aldactone Previous h/o hypokalemia: No She has history of diabetes and is currently on metformin No history of stroke or heart attacks Review of Systems Constitutional: Negative for fatigue and unexpected weight change (gradual weight loss over the years). Gastrointestinal: Negative for constipation. Varying bowel movemnets Hematological: Does not bruise/bleed easily. An entire ROS was performed at the time of this encounter. Unless noted above in the HPI, the ROS is negative. Allergies Allergen Reactions Lisinopril Other reaction(s): Cough Outpatient Medications Prior to Visit Medication Sig Dispense Refill metFORMIN (Glucophage) 500 MG tablet metoprolol tartrate (Lopressor) 50 MG tablet Take by mouth 2 times daily. spironolactone (Aldactone) 50 MG tablet Take 50 mg by mouth daily. tiZANidine (Zanaflex) 4 MG tablet Take 4 mg by mouth Nightly as needed. buPROPion XL (Wellbutrin XL) 150 MG 24 hr tablet FLUoxetine (PROzac) 20 MG capsule hydrALAZINE (Apresoline) 25 MG tablet Take 25 mg by mouth 2 times daily. No facility-administered medications prior to visit. Past Medical History: Diagnosis Date Hypertension Type 2 diabetes mellitus (HCC) Social History Tobacco Use Smoking status: Never Smokeless tobacco: Never Substance Use Topics Alcohol use: Not Currently Past Surgical History: Procedure Laterality Date HYSTERECTOMY TONSILECTOMY, ADENOIDECTOMY, BILATERAL MYRINGOTOMY AND TUBES TUBAL LIGATION Family History Problem Relation Name Age of Onset Heart block Mother Hypertension Mother COPD Mother Diabetes Mother Cancer Father Other Father West Nile Virus Objective BP 130/78 Wt 239 lb (108 kg) Physical Exam Vitals and nursing note reviewed. Constitutional: Appearance: Normal appearance. She is obese. HENT: Head: Normocephalic and atraumatic. Cardiovascular: Rate and Rhythm: Normal rate and regular rhythm. Pulmonary: Effort: Pulmonary effort is normal. Musculoskeletal: General: No swelling. Normal range of motion. Skin: General: Skin is warm and dry. Neurological: General: No focal deficit present. Mental Status: She is alert and oriented to person, place, and time. Psychiatric: Mood and Affect: Mood normal. Behavior: Behavior normal. Data Reviewed and Summarized Labs: Imaging/Testing: Electronically signed by Kira Lopes MD Portions of the information within this encounter were entered using an electronic dictation system. Best attempts were made to edit/proofread the information prior to note completion. Despite the review of information, some errors may remain. If there are questions related to the information contained within the note please contact the signing physician directly. documented in this encounter [facility] 10-09-2023 Instructions Kira Lopes MD - 10/09/2023 3:00 PM EST Midnight salivary cortisol It's important for you to do the 11 pm salivary cortisol collection correctly: do not use any topical, oral, or inhaled steroid medications for at least 8 hours prior to doing the collection do not eat or drink for at least 30 minutes prior to doing the collection. Avoid activities that will cause your gums to bleed including: flossing or brushing immediately prior to the collection do not collect the specimen if your gums are bleeding chew the collection pellet as instructed, between 11pm and 12 midnight, for at least 10 minutes so it becomes entirely saturated with saliva Blood test to be checked between 8-9 am while fasting documented in this encounter [facility] 10-09-2023 Miscellaneous Notes Addended by: DEBBIE VELASQUEZ on: 10/15/2023 12:16 PM Modules accepted: Orders documented in this encounter [facility] 10-09-2023 Note Addended by: DEBBIE VELASQUEZ on: 10/15/2023 12:16 PM Modules accepted: Orders [facility] 09-27-2023 Telephone encounter Note Called Dr. Mckeon's office at [phone] and spoke to Charline and advised her that we will see pt on 10/09/23. Called and notified pt of date, time, and location of upcoming appt. Pt voiced understanding. [facility] 09-27-[address] Mckeon's office at [phone] and spoke to Charline and advised her that we will see pt on 10/09/23. Called and notified pt of date, time, and location of upcoming appt. Pt voiced understanding. Reviewed the referral package. Pamela - can you please schedule the patient on 10/09 - I see a few admin slots.Thanks and please inform Dr Mckeon's offivce that we will be able to see patient sooner than April. Thanks Name of caller: Charline Contact phone number: [phone] Relationship to Patient: Dr Mckeon Provider: Dr Lopes Practice: Endocrinology Chief Complaint/Reason for Call: Charline states Dr Mckeon would like to speak with Dr Lopes directly regarding the appointment scheduling for Peter. Informed Charline the patient was given next available appointment date in April and Charline states that is why Dr Mckeon would like to speak to Dr Lopes directly. Please be advised. Best time of day caller can be reached: Any Patient advised that office/PCP has 24-48 business hours to return their call: Yes Processed/created the referral. Patient is ready for scheduling. An incomplete referral has been received in Endocrinology and is being processed. It is missing necessary documents that would enable a productive appointment with the patient. A request for records will be sent to the referring provider's office. We are waiting on the receipt of these documents prior to finishing the referral and scheduling the patient. Missing Labs. documented in this encounter [facility] 09-27-2023 Telephone encounter Note Reviewed the referral package. Pamela - can you please schedule the patient on 10/09 - I see a few admin slots.Thanks and please inform Dr Mckeon's offivce that we will be able to see patient sooner than April. Thanks [employer] Work Phone: 09-27-2023 Telephone encounter Note Name of caller: Charline Contact phone number: [phone] Relationship to Patient: Dr Mckeon Provider: Dr Lopes Practice: Endocrinology Chief Complaint/Reason for Call: Charline states Dr Mckeon would like to speak with Dr Lopes directly regarding the appointment scheduling for Peter. Informed Charline the patient was given next available appointment date in April and Charline states that is why Dr Mckeon would like to speak to Dr Lopes directly. Please be advised. Best time of day caller can be reached: Any Patient advised that office/PCP has 24-48 business hours to return their call: Yes [facility] 09-26-2023 Telephone encounter Note Processed/created the referral. Patient is ready for scheduling. [facility] 09-26-2023 Miscellaneous Notes Processed/created the referral. Patient is ready for scheduling. An incomplete referral has been received in Endocrinology and is being processed. It is missing necessary documents that would enable a productive appointment with the patient. A request for records will be sent to the referring provider's office. We are waiting on the receipt of these documents prior to finishing the referral and scheduling the patient. Missing Labs. documented in this encounter [facility] 09-23-2023 Telephone encounter Note An incomplete referral has been received in Endocrinology and is being processed. It is missing necessary documents that would enable a productive appointment with the patient. A request for records will be sent to the referring provider's office. We are waiting on the receipt of these documents prior to finishing the referral and scheduling the patient. Missing Labs. [facility] 09-23-2023 Miscellaneous Notes An incomplete referral has been received in Endocrinology and is being processed. It is missing necessary documents that would enable a productive appointment with the patient. A request for records will be sent to the referring provider's office. We are waiting on the receipt of these documents prior to finishing the referral and scheduling the patient. Missing Labs. documented in this encounter [facility] 05-14-2023 Discharge summary Note Date/Time May 14, 2023 10:46am [facility] Physical Therapy Health[address] [place] [address] / REHABILITATION SERVICES DISCHARGE SUMMARY MR#: [id number] Acct: [id number] Name: PETER DAHL Rep #: [id number] : 1955 68 From: Cert. JEFFRY King, OCS Referring Dr.: DICKSON Salmeron Status: REG R Insurance: [facility] MEDICAID Patient Information Patient Information: PETER DAHL was seen in my office for initial evaluation on 01/04/23. The following Plan of Care was established for this patient: POC Established Initial Frequency: 2x /Week Initial Duration: 4 Weeks Anticipated Interventions Patient/Client Instruction: Educate patient on: Condition and Plan of Care For the Purpose of:: To decrease pain, To increase ROM, To improve muscle performance and motor function, To improve ability to perform ADL's, To increasetolerance to activity/condition/position, To improve ability of physical actionsfor home/community/work/leisure, To improve health of tissue, To decrease soft tissue restriction, To increase flexibility/ROM, To improve balance and To improve tolerance to ADL's Therapeutic Exercise to Include: Strength training, Endurance training, Body mechanics, Postural training, Flexibilty training, In an aquatic setting, Active ROM and Dynamic Lumbar Stabilization For the Purpose of:: To decrease pain, To improve muscle performance and motor function, To improve ability to perform ADL's, To increase tolerance to activity/condition/position, To improve performance and independence with ADL's,To improve ability of physical actions for home/community/work/leisure, To improve health of tissue, To decrease soft tissue restriction, To increase flexibility/ROM, To improve endurance, To reduce risk of recurrence and To improve tolerance to ADL's Last Seen Last Seen: This patient was last seen in our office . Pertinent comments regarding their Physical therapy will appear below: Patient was seen for PT in Aquatics for neck and back pain thus d/c At this point I will be discontinuing this patient from physical therapy. I would be happy to see this patient again in the future if found appropriate by the physician. Thank you! Emery Naidu PT, Cert MDT, OCS Balance/Gait/Functional tests Balance/Special Test Scores Oswestry Low Back Score: 17 <Electronically signed by Daria Rodgers PT. JEFFRY, MIREYA> 05/14/23 1103 CC: DICKSON Salmeron; [facility] [place] Signed [facility] Work Phone: [phone]) 116-173812-20-2022 NoteHNO ID: [id number] Author: Shira Nelson APRN.DIRECTOR OF OFFICIATING Service: ? Author Type: Nurse Practitioner Type: Progress Notes Filed: 09/04/2022 1:40 PM Note Text: This note was created using [employer]. Subjective Peter Dahl is a 67 year old female. 67 year old female with PMH sciatica, HTN, and DM presents for complaints of lower back pain. Acute onset one week ago Left lower back +radiation down into butt and left thigh Endorses history of same in past Has utilized Advil without much relief of symptoms. States that she has been moving. She has also been cleaning. Denies saddle anesthesia, unilateral weakness, or inability to ambulate Denies IV drug usage The history is provided by the patient. No language assistant was used. Back Pain This is a recurrent problem. The current episode started more than 1 week ago. The problem occurs constantly. The problem has not changed since onset.The pain is associated with twisting and lifting heavy objects. The pain is present in the lumbar spine. The quality of the pain is described as stabbing and aching. The pain radiates to the left thigh. The pain is at a severity of 8/10. The pain is moderate. The symptoms are aggravated by twisting and bending. Stiffness is present All day. Pertinent negatives include no chest pain, no fever, no numbness, no weight loss, no headaches, no abdominal pain, no abdominal swelling, no bowel incontinence, no perianal numbness, no bladder incontinence, no dysuria, no pelvic pain, no leg pain, no paresthesias, no paresis, no tingling and no weakness. She has tried NSAIDs for the symptoms. The treatment provided no relief. Risk factors include obesity, poor posture and a sedentary lifestyle. 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 cyclobenzaprine (FLEXERIL) 5 mg tablet Take 1 tablet by mouth twice daily as needed for up to 5 days. methylPREDNISolone (MEDROL, AIMEE,) 4 mg Dose-Pack Follow dosing instructions, take with food. carvedilol (COREG) 12.5 mg tablet Take 1 tablet by mouth twice daily. (Patient not taking: Reported on 09/04/2022) FAMILY HISTORY Problem Relation Age of Onset Cancer Father Lung Heart Mother Bypass Surgery Hypertension Sister Diabetes Sister Diabetes Mother COPD Mother Heart Brother Social History Tobacco Use Smoking status: Never Smokeless tobacco: Never Substance Use Topics Alcohol use: No Drug use: No Review of Systems Constitutional: Negative for activity change, appetite change, chills, fever and weight loss. Eyes: Negative for pain, discharge, redness and itching. Respiratory: Negative for apnea, choking and chest tightness. Cardiovascular: Negative for chest pain. Gastrointestinal: Negative for abdominal pain, bowel incontinence, diarrhea, nausea and vomiting. Genitourinary: Negative for bladder incontinence, dysuria and pelvic pain. Musculoskeletal: Positive for back pain. Skin: Negative for color change, pallor, rash and wound. Allergic/Immunologic: Negative for environmental allergies, food allergies and immunocompromised state. Neurological: Negative for dizziness, tingling, facial asymmetry, weakness, numbness, headaches and paresthesias. Hematological: Negative for adenopathy. Does not bruise/bleed easily. Psychiatric/Behavioral: Negative for agitation and behavioral problems. Objective BP 152/90 Pulse 70 Temp 36.2 ?C (97.1 ?F) Resp 16 Wt 106.6 kg (235 lb) SpO2 98% BMI 35.73 kg/m? Physical Exam Vitals and nursing note reviewed. Constitutional: General: She is not in acute distress. Appearance: Normal appearance. She is normal weight. She is not ill-appearing, toxic-appearing or diaphoretic. HENT: Head: Normocephalic and atraumatic. Right Ear: Ear canal and external ear normal. Left Ear: Ear canal and external ear normal. Nose: Nose normal. No congestion or rhinorrhea. Mouth/Throat: Mouth: Mucous membranes are moist. Pharynx: No oropharyngeal exudate or posterior oropharyngeal erythema. Eyes: General: Right eye: No discharge. Left eye: No discharge. Extraocular Movements: Extraocular movements intact. Conjunctiva/sclera: Conjunctivae normal. Pupils: Pupils are equal, round, and reactive to light. Cardiovascular: Rate and Rhythm: Normal rate and regular rhythm. Pulses: Normal pulses. Heart sounds: Normal heart sounds. No murmur heard. No friction rub. Pulmonary: Effort: Pulmonary effort is normal. No respiratory distress. Breath sounds: Normal breath jhonatan (more content not included)...[facility]12-20-2022 History of Present illness Narrative* Shira Nelson APRN.[facility] - 09/04/2022 12:50 PM EST This note was created using NoteWriter. Subjective Peter Dahl is a 67 year old female. 67 year old female with PMH sciatica, HTN, and DM presents for complaints of lower back pain. Acute onset one week ago Left lower back +radiation down into butt and left thigh Endorses history of same in past Has utilized Advil without much relief of symptoms. States that she has been moving. She has also been cleaning. Denies saddle anesthesia, unilateral weakness, or inability to ambulate Denies IV drug usage The history is provided by the patient. No language assistant was used. Back Pain This is a recurrent problem. The current episode started more than 1 week ago. The problem occurs constantly. The problem has not changed since onset.The pain is associated with twisting and lifting heavy objects. The pain is present in the lumbar spine. The quality of the pain is described as stabbing and aching. The pain radiates to the left thigh. The pain is at a severity of 8/10. The pain ismoderate. The symptoms are aggravated by twisting and bending. Stiffness is present All day. Pertinent negatives include no chest pain, no fever, no numbness, no weight loss, no headaches, no abdominal pain, no abdominal swelling, no bowel incontinence, no perianal numbness, no bladder incontinence, no dysuria, no pelvic pain, no leg pain, no paresthesias, no paresis, no tingling and no weakness.She has tried NSAIDs for the symptoms. The treatment provided no relief. Risk factors include obesity, poor posture and a sedentary lifestyle. 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 cyclobenzaprine (FLEXERIL) 5 mg tablet Take 1 tablet by mouth twice daily as needed for up to 5 days. methylPREDNISolone (MEDROL, AIMEE,) 4 mg Dose-Pack Follow dosing instructions, take with food. carvedilol (COREG) 12.5 mg tablet Take 1 tablet by mouth twice daily. (Patient not taking: Reportedon 09/04/2022) FAMILY HISTORY Problem Relation Age of Onset Cancer Father Lung Heart Mother Bypass Surgery Hypertension Sister Diabetes Sister Diabetes Mother COPD Mother Heart Brother Social History Tobacco Use Smoking status: Never Smokeless tobacco: Never Substance Use Topics Alcohol use: No Drug use: No Review of Systems Constitutional: Negative for activity change, appetite change, chills, fever and weight loss. Eyes: Negative for pain, discharge, redness and itching. Respiratory: Negative for apnea, choking and chest tightness. Cardiovascular: Negative for chest pain. Gastrointestinal: Negative for abdominal pain, bowel incontinence, diarrhea, nausea and vomiting. Genitourinary: Negative for bladder incontinence, dysuria and pelvic pain. Musculoskeletal: Positive for back pain. Skin: Negative for color change, pallor, rash and wound. Allergic/Immunologic: Negative for environmental allergies, food allergies and immunocompromised state. Neurological: Negative for dizziness, tingling, facial asymmetry, weakness, numbness, headaches andparesthesias. Hematological: Negative for adenopathy. Does not bruise/bleed easily. Psychiatric/Behavioral: Negative for agitation and behavioral problems. Objective BP 152/90 Pulse 70 Temp 36.2 C (97.1 F) Resp 16 Wt 106.6 kg (235 lb) SpO2 98% BMI 35.73kg/m Physical Exam Vitals and nursing note reviewed. Constitutional: General: She is not in acute distress. Appearance: Normal appearance. She is normal weight. She is not ill-appearing, toxic-appearing or diaphoretic. HENT: Head: Normocephalic and atraumatic. Right Ear: Ear canal and external ear normal. Left Ear: Ear canal and external ear normal. Nose: Nose normal. No congestion or rhinorrhea. Mouth/Throat: Mouth: Mucous membranes are moist. Pharynx: No oropharyngeal exudate or posterior oropharyngeal erythema. Eyes: General: Right eye: No discharge. Left eye: No discharge. Extraocular Movements: Extraocular movements intact. Conjunctiva/sclera: Conjunctivae normal. Pupils: Pupils are equal, round, and reactive to light. Cardiovascular: Rate and Rhythm: Normal rate and regular rhythm. Pulses: Normal pulses. Heart sounds: Normal heart sounds. No murmur heard. No friction rub. Pulmonary: Effort: Pulmonary effort is normal. No respiratory distress. Breath sounds: Normal breath sounds. No stridor. No wheezing, rhonchi or rales. Chest: Chest wall: No tenderness. Abdominal: General: Abdomen is flat. There is no distension. Palpations: Abdomen is soft. There is no mass. Tenderness: There is no abdominal tenderness. There is no right CVA tenderness, left CVA tenderness, guarding or rebound. Hernia: No hernia is present. Musculoskeletal: General: No swelling, tenderness, deformity or signs of injury. Normal range of motion. Cervical back: Normal range of motion and neck supple. No rigidity. Right lower leg: No edema. Left lower leg: No edema. Comments: Generalized and diffuse cervical, thoracic and midline TTP That's my fibromyalgia +left SI joint TTP +straight leg raise left Ambulatory Lymphadenopathy: Cervical: No cervical adenopathy. Skin: General: Skin is warm and dry. Capillary Refill: Capillary refill takes less than 2 seconds. Coloration: Skin is not jaundiced or pale. Findings: No bruising, erythema, lesion or rash. Neurological: General: No focal deficit present. Mental Status: She is alert and oriented to person, place, and time. Cranial Nerves: No cranial nerve deficit. Sensory: No sensory deficit. Motor: No weakness. Coordination: Coordination normal. Gait: Gait normal. Psychiatric: Mood and Affect: Mood normal. Behavior: Behavior normal. Thought Content: Thought content normal. Judgment: Judgment normal. Assessment and Plan ASSESSMENT/PLAN: 1. Back pain of lumbar region with sciatica - ICD9: 724.2, 724.3, ICD10: M54.40 Sciatica - Ice for localized tenderness - Warm moist heat for 20 min three times a day - Prednisone burst- see orders - Muscle relaxant- see orders - Patient given instructions use of medications as ordered, intermittent rest, back care exercise program, proper lifting techniques, intermittent use of heat, and avoiding sleeping on a heating pad - Follow up in 3 days or sooner if symptoms persist or worsen Shira Nelson APRN.DIRECTOR OF OFFICIATING [facility] of Past illness Narrative* Problem Noted Date Resolved Date Pelvic pain 03/17/2012 07/07/2012 Fibroids 03/17/2012 07/07/2012 Post-menopausal bleeding 03/17/2012 012 documented as of this encounter (statuses as of 09/04/2022) [facility] noteNo assessment information availableWTogus [facility] Work Phone: Evaluation note* Diagnosis Back pain of lumbar region with sciatica- Primary documented in this encounter [facility] CenterEvalubeebe [facility] note* Diagnosis Adrenal adenoma, left- Primary Primary hypertension Unspecified essential hypertension [facility] Diagnosis Onset Date Resolution Status Diarrhea acute Fatty liver acute Heartburn acute Hepatomegaly acute [facility] Work Phone: Evaluation note* Diagnosis Adrenal adenoma, left- Primary documented in [facility] Summary Purpose Family History No Family History Records Found Relationship Condition Age at Onset Recorded Date/T ramakrishna mother Cardiac disease Unknown Chronic obstructive pulmonary disease Unk nown Diabetes mellitus Unknown father Diabetes mellitus Unknown Malignant neoplasm of lung Unknown Advance Directives No Advanced Directives Records Found Advance Directive Response Recorded Date/ Time Living Will No October 23 7:36pm Power of Spanish Professor No October 23, 2017 7:36pm Advance Directive Response Recorded Date/ Time Living Will No October 23 6:36pm Power of Spanish Professor No October 23, 2017 6:36pm Chief Complaint Chief Complaint Description Start Date neck pain Preliminary chief co mplaint data, not yet signed by the author as of Instructions Instruction Description Start Date Patient advised to follow-up with Primary Care Physician for BMI management. Assessments There may be information available, but it has not been provided by the sender. Review of System There may be information available, but it has not been provided by the sender. History of Present Illness There may be information available, but it has not been provided by the sender. Chief Complaint and Reason for Visit Chief Complaint Calculus of gallblad kervin without cholecystitis with Chief Complaint LUMBAR STRAIN RX HER E Chief Complaint Unspecified abdomina l pain Chief Complaint Unspecified abdomina l pain GALLSTONES AND FATTY LIVER FATTY LIVER Reason for Visit Diarrhea Fatty liver Heartburn Hepatomegaly Chief Complaint GALLSTONES AND FATTY LIVER FATTY LIVER INT LABS Reason for Visit Diarrhea Fatty liver Heartburn Hepatomegaly Additional Source Comments INFORMATION SOURCE (unrecogn ized section and content) DATE CREATED AUTHOR 07/05/2020 [facility] DATE CREATED AUTHOR AUTHOR'S ORGANIZ ATION 07/06/2020 [facility] DATE CREATED AUTHOR AUTHOR'S ORGANIZ ATION 09/08/2022 [facility] DATE CREATED AUTHOR AUTHOR'S ORGANIZ ATION 11/22/2024 [facility] DATE CREATED AUTHOR AUTHOR'S ORGANIZ ATION 12/18/2024 [facility] DATE CREATED AUTHOR AUTHOR'S ORGANIZ ATION 04/15/2025 [facility] Reason for Visit (unrecogniz ed section and content) Reason For Visit Description New - 1st visit with practice Preliminary reason f or visit data, not yet signed by the author as of neck pain Reason Comments Low Back Pain migrating into left leg x over 1 week Reason Onset Date Comments Incomplete Referral 09/23/2023 Reason Comments New Patient Specialty Diagnoses / Procedures Referred By Charlie burks Referred To Contact Endocrinology Diagnoses Other primary hyperaldosteronism (HCC) Procedures ND OFFICE/OUTPATIENT NEW MODERATE MDM 45 MINUTES Josesito Mckeon MD [address] [place] [address] [facility] [address] [place] [address] Referral ID Status Reason Start Date Expiration Date Visits Re quested Visits Authorized [id number] Closed 09/18/2023 09/18/2024 1 1 Reason Onset Date Comments Discuss Labs 10/23/2023 salivary cortisol 10/23/2023 Reason Onset Date Comments Appointment 02/17/2024 Reason Onset Date Comments Appointment Request 06/15/2024 Reason Onset Date Comments Cancelled Appointment 06/25/2024 Reason Onset Date Comments Appointment 11/01/2024 Reason Onset Date Comments Med Refill 04/13/2025 Goals (unrecognized section and content) Goals may be documented in a n alternate sectionGoals may be documented in an alternate sectionGoals may be documented in an alternate sectionGoals may be documented in an alternate sectionGoals may be documented in an alternate sectionGoals may be documented in an alternate sectionGoals may be documented in an alternate sectionGoals may be documented in an alternate section Source Comments (unrecognize d section and content) In the event this informatio n is protected by the Federal Confidentiality of Alcohol and Drug Abuse Patient Records regulations: The Federal rules restrict any use of the information to criminally investigate or prosecute any alcohol or drug abuse patient.[facility] Care Teams (unrecognized sec tion and content) Team Status: Active Member Role Status Dates [facility] Family Provider Active [facility] Primary Care Provider A ctive Team Status: Inactive Member Role Status Dates [facility] Primary Care Provider A ctive Dr. Eddie Salmeron DC Attending Provider, Referring P peña Active Team Status: Inactive Member Role Status Dates [facility] Primary Care Provider A ctive Dr. Josesito Mckeon MD Attending Provider, Referring Provider Active Team Status: Active Member Role Status Dates [facility] Family Provider Active Dr. Josesito Mckeon MD Primary Care Provider Active Team Status: Inactive Member Role Status Dates Dr. Josesito Mckeon MD Primary Care Pro vider, Attending Provider, Referring Provider Active [employer] Relationship Specialty Start Date End Date Josesito Mckeon MD [address] [place] [address] PCP - General Family Medicine 08/16/23 [employer] Relationship Specialty Start Date End Date Josesito Mckeon MD [address] [place] [address] PCP - General Family Medicine 08/16/23 [employer] Relationship Specialty Start Date End Date Josesito Mckeon MD [address] [place] [address] PCP - General Family Medicine 08/16/23 [employer] Relationship Specialty Start Date End Date Josesito Mckeon MD [address] [place], [phone] PCP - [facility] 08/16/23 Team Status: Inactive Member Role Status Dates Dr. Josesito Mckeon MD Primary Care Provider, Referri ng Provider Active Dr. Ric Nguyễn DO Attending Provider Active Team Status: Inactive Member Role Status Dates Dr. Josesito Mckeon MD Primary Care Provider Active Dr. Ric Nguyễn DO Attending Provider, Referring Provider Active [employer] Relationship Specialty Start Date End Date Josesito Mckeon MD [address] [place], [place] [phone] PCP - [facility] 08/16/23 [employer] Relationship Specialty Start Date End Date Josesito Mckeon MD [address] [place], [place] [phone] PCP - [facility] 08/16/23 [employer] Relationship Specialty Start Date End Date Josesito Mckeon MD [address] [place], [place] [phone] PCP - [facility] 08/16/23 [employer] Relationship Specialty Start Date End Date Josesito Mckeon MD [address] [place], [phone] PCP - [facility] 08/16/23 FOR RECORDS PERTAINING TO PATIENTS WHO ARE OR HAVE BEEN ENROLLED IN A CHEMICAL DEPENDENCY/SUBSTANCEABUSE PROGRAM, SOME INFORMATION MAY BE OMITTED. This clinical summary was aggregated from multiple sources. Caution should be exercised in using it in the provision of clinical care. This summary normalizes information from multiple sources, and as a consequence, information in this document may materially change the coding, format and clinical context of patient data. In addition, data may be omitted in some cases. CLINICAL DECISIONS SHOULD BE BASED ON THE PRIMARY CLINICAL RECORDS. [facility] [facility]. provides no warranty or guarantee of the accuracy or completeness of information in this document.
== END | disposition home or self-care (01) ==
PROVIDERS: PCP Nurse Practitioner Family; Visit Provider Nurse Practitioner Family
DX: E11.65 Type 2 diabetes mellitus with hyperglycemia (principal); E26.09 Other primary hyperaldosteronism; I10 Essential (primary) hypertension
CPT/HCPCS: 36415; 80053; 80061; 82043; 82570; 83036

== ENCOUNTER → 2025-06-29 | Outpatient (CLI) | payer MEDICARE, SELFPAY ==
--- NOTE | 2025-06-29 08:47 | MRI_ITS ---
PROCEDURE: BRAIN W/WO CONTRAST 06/29/2025 REASON FOR EXAM: MODERATE COGNITIVE IMPAIRMENT TECHNIQUE: Procedure Code: [id number] Modality: MR Procedure: BRAIN W/WO CONTRAST Multiplanar and multisequence images were obtained. CONTRAST: Qing scan VOLUME: 20 mL COMPARISON: None FINDINGS: Diffusion-weighted images:Negative. ADC map: Negative. Gradient images: Negative. Cerebrum: Mild loss of cerebral volume. Negative for mass the frontal, parietal, temporal and occipital lobes otherwise negative. White matter: Moderate periventricular white matter changes. Moderate T2 lesions in the bernal radiata and centrum semiovale. Cerebellum: Negative for acute infarction. Otherwise negative cerebellum. CSF pathways and ventricles: Negative. Negative for ventricular dilatation or obstruction. Basal ganglia and thalami: Suspect iron deposition in the left basal ganglia. No acute infarctions. Brainstem: Midbrain, mikel and medulla otherwise negative. Midline structures: The corpus callosum, pituitary fossa and cerebellar tonsils are negative. Limbic system: Medial temporal lobes and limbic system negative. Extra-axial spaces: Negative. Negative for subarachnoid, subdural or epidural hemorrhage. Orbital structures: Globes negative. Extraocular muscles negative. Paranasal sinuses: No air fluid levels. Remainder of the sinuses negative. Vascular structures: Normal intracranial flow voids including the superior sagittal sinus. Other: No abnormal enhancement. Remainder of exam negative. MRI/Brain W/WO Contrast IMPRESSION: Negative for acute intracranial pathology. Intracranial small-vessel disease more than anticipated for patient's age. Cerebral and cerebellar volume lower limits of normal for age. Reading Location: [place] [id number]
== END | disposition home or self-care (01) ==
LOC: MRI 08:38
PROVIDERS: PCP Nurse Practitioner Family; Referring Provider Nurse Practitioner Family; Visit Provider Nurse Practitioner Family
DX: R41.89 Other symptoms and signs involving cognitive functions and awareness (principal)
CPT/HCPCS: 70553; A9575; A4216

== ENCOUNTER → 2025-09-14 | Outpatient (CLI) | payer MEDICARE, SELFPAY ==
--- NOTE | 2025-09-14 09:36 | ECHOCS_ITS ---
Reason For Study Reason For Study: New Murmur Procedure This was a 2D Doppler, Color Flow transthoracic echocardiogram. The patient is in an irregular rhythm. The study was technically difficult. Contrast injection was performed. Exam performed in department. Left Ventricle Normal-sized left ventricle. Moderate concentric hypertrophy present. Left ventricular EF: 70% by Patiño's biplane. Diastolic dysfunction grade indeterminate. E/e' suggest elevated filling pressures. No regional wall motion abnormalities noted. Right Ventricle Normal right ventricle. Normal systolic function. Atria Mildly dilated left atrium. Normal-sized right atrium. Estimated RA pressure: 8 mmHg. Mitral Valve Mitral annular calcification present. Trace mitral regurgitation. No mitral stenosis. Tricuspid Valve Normal tricuspid valve. Trace tricuspid regurgitation. No tricuspid stenosis. Aortic Valve Trileaflet calcified aortic valve. There is mild to moderate aortic stenosis. TON: 1.3 cm2, DVI: 0.44, mean gradient: 14 mmHg, peak velocity: 2.5 m/s. Stroke-volume index: 39 mL/m2. Patient is noted to be hypertensive at 185/95. Pulmonic Valve Normal pulmonic valve. Trace pulmonic regurgitation. No pulmonic stenosis. Great Vessels Normal sized aortic root. Normal ascending aorta. Pericardium/Pleural No pericardial effusion. Medication 22 gauge I.V. with prn adaptor inserted into left arm. Diluted definity 2ml given slow IV push to enhance endocardial definition. MMode/2D Measurements & Calculations LVIDd: 4.4 cm IVSd: 1.4 cm LVOT diam: 1.9 cm LVIDs: 2.6 cm LVPWd: 1.0 cm RVDd: 3.7 cm FS: 39.8 % LVOT area: 3.0 cm2 Ao root diam: 3.2 cm LAV(MOD-bp): 84.5 ml LVAd ap4: 34.8 cm2 LAV(MOD-bp) Indexed: 39.8 ml/m2 LVLd ap4: 8.4 cm LAV(MOD-sp2): 78.2 ml EDV(MOD-sp4): 116.3 ml LAV(MOD-sp4): 76.9 ml EDV(sp4-el): 122.3 ml LVAs ap4: 17.2 cm2 LVLs ap4: 7.1 cm ESV(MOD-sp4): 33.8 ml ESV(sp4-el): 35.6 ml EF(MOD-sp4): 70.9 % EF(sp4-el): 70.8 % SV(MOD-sp4): 82.5 ml SV(sp4-el): 86.6 ml LA A4 area: 25.0 cm2 SI(MOD-sp4): 38.9 ml/m2 LA dimension(2D): 4.5 cm RA A4 area: 13.4 cm2 TAPSE: 2.2 cm Time Measurements MV dec time: 0.40 sec Doppler Measurements & Calculations MV E max dharmesh: 112.6 cm/sec Lat Peak E' Dharmesh: 8.3 cm/sec Med Peak E' Dharmesh: 4.5 cm/sec MV A max dharmesh: 125.5 cm/sec E/E' lat: 13.6 E/E' med: 25.1 MV E/A: 0.90 MV V2 max: 139.8 cm/sec MV P1/2t max dharmesh: 140.7 cm/sec Ao V2 max: 245.5 cm/sec MV max P.8 mmHg MV P1/2t: 134.3 msec Ao max P.1 mmHg MV V2 mean: 58.2 cm/sec MV dec slope: 306.8 cm/sec2 Ao V2 mean: 179.9 cm/sec MV mean P.9 mmHg MVA(P1/2t): 1.6 cm2 Ao mean P.4 mmHg MV V2 VTI: 63.6 cm Ao V2 VTI: 69.8 cm MVA(VTI): 1.4 cm2 AV (velocity ratio): 0.44 TON(I,D): 1.3 cm2 TON(V,D): 1.3 cm2 LV V1 max: 109.6 cm/sec SV(LVOT): 91.1 ml PA V2 max: 98.9 cm/sec LV V1 max P.8 mmHg PA V2 mean: 72.9 cm/sec LV V1 mean P.9 mmHg LV V1 mean: 81.3 cm/sec LV V1 VTI: 30.6 cm TR max dharmesh: 256.0 cm/sec TR max P.2 mmHg ECHO/Echo Complete W/ Contrast Interpretation Summary Moderate concentric hypertrophy Normal left ventricular systolic function with EF: 70% by Patiño's biplane Diastolic dysfunction grade indeterminate Normal right ventricular systolic function Mild???moderate aortic stenosis Please repeat echocardiogram in 1 to 2 years for routine surveillance of aortic stenosis. Ordering Physician: KURT KENDRICK Referring Physician: KURT KENDRICK Performed By: Brian Nunez RCS
== END | disposition home or self-care (01) ==
PROVIDERS: PCP Nurse Practitioner Family; Referring Provider Nurse Practitioner Family; Visit Provider Nurse Practitioner Family
DX: R01.1 Cardiac murmur, unspecified (principal)
CPT/HCPCS: 93306; Q9957; A4216; C8929